=== PATIENT | female | born 1975 | race Caucasian/White ===

== ENCOUNTER 2018-03-02 01:34 | Outpatient (CLI) | payer OTHER, SELFPAY ==
--- NOTE | 2018-03-02 11:39 | DI.US_ITS ---
SYMPTOM/DIAGNOSIS: RT KNEE PAIN, POSTERIOR SWELLING, SYNOVIAL CYST OF POPLITEAL SPACE, JOHNSON RIGHT KNEE ULTRASOUND: Sonographic evaluation of the posterior knee was performed. There is a 3.7 by 1.1 by 2.3 cm. fluid collection in the posterior knee, most consistent with a popliteal cyst. No abnormal blood flow or solid component is seen. IMPRESSION: 3.7 cm. right Johnson's cyst.
== END 2018-03-02 01:54 ==
PROVIDERS: PCP Emergency Medicine; Visit Provider Student in an Organized Health Care Education/Training Program
DX: M25.561 Pain in right knee (principal); M71.21 Synovial cyst of popliteal space [Baker], right knee
CPT/HCPCS: 76881

== ENCOUNTER 2018-05-10 01:19 | Outpatient (CLI) | payer OTHER, SELFPAY ==
--- NOTE | 2018-05-10 09:38 | DI.RAD_ITS ---
SYMPTOM/DIAGNOSIS: TENDINITIS LT ROTATOR CUFF M75.82 LEFT SHOULDER INJECTION: Fluoroscopy Time: 6 sec Fluoroscopy was utilized by Dr. Langford during the performance of a left shoulder injection. Please refer to the procedure report for complete details.
[2018-05-10] MEDS: Omnipaque 300 MG/ML 10 ML BTL IJ (09:51)
[2018-05-10] MEDS: methylPREDNISolone ACETATE 80 MG/ML VIAL IM (09:51)
[2018-05-10] MEDS: Bupivacaine 0.5% Pres-Free 30 ML VIAL IJ (09:52)
--- NOTE | 2018-05-10 11:32 | OPPNE_ITS ---
Date of service: 05/10/18 Time of Service: 11:30 Procedure Note Date of procedure: 05/10/18 Procedure: Left Shoulder Injection Surgeon/Proceduralist/Physician: Kirk Langford Procedure Diagnosis: Left partial rotator cuff tear Procedure Indications: Na has had persistent pain of the LEFT shoulder. Noninvasive measures have been tried and previous intra- articular injection was successful. An injection under fluoroscopy was recommended. I had discussed the risks of the procedure and the patient elected to proceed. Procedure Description: Na was greeted in the flouroscopy room. The correct side was identified and the consent was reviewed with the patient and signed. The patient was then placed in the supine position on the fluoroscopy table. The LEFT shoulder was then prepped with Chloraprep. The anterior injection starting point was identiifed by bony landmarks and fluoroscopy. The skin and soft tissue in the tract of the injection was anesthetized with 1% Lidocaine. A spinal needle was then inserted deep into the shoulder joint at the level of the recess between the glenoid and superior humeral head. A small amount of Omnipaque solution was injected to confirm intraarticular placement. Once confirmed, the shoulder was injected with 4cc of 0.5% Bupivicaine and 80mg of Depo-Medrol. A bandaid was placed on the injection site. The patient tolerated the procedure well and noted improvement in pre- injection pain.
== END 2018-05-10 01:39 ==
PROVIDERS: PCP Emergency Medicine; Visit Provider Student in an Organized Health Care Education/Training Program
DX: M25.512 Pain in left shoulder (principal); M75.82 Other shoulder lesions, left shoulder
CPT/HCPCS: 20610; 77002; J1040

== ENCOUNTER 2018-07-09 02:45 | Outpatient (CLI) | payer OTHER, SELFPAY ==
[2018-07-09 07:44] LABS: Abs Immature Grans 0.01 k/cumm (0.0-0.09); Absolute Basophil Count 0.02 k/cumm (0.0-0.2); Absolute Eosinophil Count 0.18 k/cumm (0.0-0.7); Absolute Lymphocyte Count 1.29 k/cumm (1.2-3.4); Absolute Monocyte Count 0.28 k/cumm (0.11-0.7); Absolute Neutrophil Count 2.79 k/cumm (1.2-6.7); Basophils % 0.4; Eosinophils % 3.9; HCT 40.3 % (36.0-46.0); HGB 13.7 g/dL (12.0-15.5); Immature Grans % 0.2; Lymphocytes % 28.2; Mean Corpuscular Hemoglobin 31.7 pg (27.0-33.0); Mean Corpuscular Volume 93.3 fL (80-95); Monocytes % 6.1; Neutrophils % 61.2; Platelet Count 185 x1000/uL (130-400); RBC 4.32 m/cumm (4.00-5.20); RBC Distribution Width 12.9 % (11.7-14.6); White Blood Cell Count 4.57 k/cumm (4.4-10.8)
[2018-07-09 07:58] LABS: ALT 20 U/L (12-78); AST 16 U/L (15-37); Albumin 3.7 g/dL (3.4-5.0); Alkaline Phosphatase 81 U/L (46-116); Anion Gap 8.5 mmol/L (3-11); BUN 17 mg/dL (7-18); Bilirubin, Total 0.4 mg/dL (0.2-1.0); CO2 27.5 mmol/L (21.0-32.0); CREATININE 1.15 mg/dL (0.55-1.02); Calcium 9.1 mg/dL (8.5-10.1); Chloride 104 mmol/L (98-107); Estimated GFR 51.26 (mL/min/1.73m2); Glucose 95 mg/dL (70-100); Potassium 3.7 mmol/L (3.5-5.1); Sodium 140 mmol/L (136-145); Total Protein 7.4 g/dL (6.4-8.2)
[2018-07-09 09:49] LABS: Hemoglobin A1C 6.3 % (4.5-6.2)
[2018-07-11 13:55] LABS: TB Interpretation Negative (NEGAT)
== END 2018-07-09 03:05 ==
PROVIDERS: Psychiatry & Neurology Neurology; PCP Emergency Medicine; Visit Provider Emergency Medicine
DX: G35 Multiple sclerosis (principal); I10 Essential (primary) hypertension; E11.9 Type 2 diabetes mellitus without complications
CPT/HCPCS: 36415; 80048; 80053; 85027; 83036; 85025; 86480

== ENCOUNTER 2018-09-14 07:04 | Observation (INO) | payer OTHER, SELFPAY ==
[2018-09-14] VITALS (11 sets, daily range): BP systolic 93–126; BP diastolic 46–67; PULSE 72–94; RESP 14–19; TEMP 36.5–36.8; O2SAT 96–100
--- NOTE | 2018-09-14 07:17 | W.ED.GENAD ---
Discharge Plan Disposition Patient Disposition: [facility] INPATIENT Condition: Stable Discharge Details Chief Complaint: Abd Prob Clinical Impression: Acute appendicitis Admit Date/Time: 09/14/18 09:38 Admit Provider: Frederic Goel Attending Provider: Frederic Goel Primary Care Provider: Jasson Avila ED Provider: Ashish Branch Hospital Course Hospital Course: 43 y/o female admitted through the ED this am with acute appendicitis. She underwent an uneventful laparoscopic appendectomy and was found to have a gangrenous appendix but no evidence of ruptured appendix or abscess. Patient did well post-operatively. She is afebrile and tolerating a liquid diet. She has ambulated and voided. Pain is minimal per patient. She takes acetaminophen at home and declines need for pain med Rx. Discharge Instructions Instructions: Laparoscopic Appendectomy (DC) Additional Instructions: May climb stairs. May shower in am. No lifting > 20 pounds x 2 weeks. Call office/hospital for questions/concerns. Forms: Nursing Discharge Form Referrals: Rica Montalvo MD [ [facility] STAFF PHYSICIAN] - (Follow-up in office in 2 weeks - s/p lap appendectomy.) Discharge Data Discharge Date/Time-TO BE ENTERED AT DEPARTURE: 09/14/18 10:10 Medical Decision Making <Earnest Olson MD - Last Filed: 09/14/18 19:57> Patient presenting with worsening right lower quadrant abdominal pain for 36 hours. She is exquisitely tender in the right lower quadrant. She has a Rovsing sign. She is not able to walk upright. test is negative. Urinalysis negative. IV established and laboratory studies ordered. Fluids, morphine, Zofran ordered. CT scan of the abdomen pelvis ordered. Patient signed out to oncoming physician Dr. Branch. <Ashish Branch MD - Last Filed: 09/14/18 08:55> Pt's CT confirms acute appendicitis per Dr. Frankel. Pt remains stable, consulted Dr. Goel who will admit the patient and asked abx be ordered. HPI <Earnest Olson MD - Last Filed: 09/14/18 19:57> General Mode of arrival: ambulatory. Date/Time Provider Initiated Documentation: 09/14/18 07:14. Limitations to Documentation: no limitations. Information obtained by: patient. HPI Narrative: Patient presents to ED with right lower quadrant abdominal pain that started 36 hours ago and has got progressively worse. She has pain with any type of movement. She cannot walk upright. She has not had fever that she is aware of. She started out with nausea last week. She saw her primary care who diagnosed her with an ear infection. She was started on Augmentin which she has not completely finished because it seemed to make her nausea worse. She has been switched to Keflex but has not yet filled that. She did eat last night. She has not ate this morning. She has not had vomiting or diarrhea. She has no URI symptoms or ear pain. Related Data Home Medications Medication Instructions Recorded Confirmed tizanidine 2 mg PO HS #1 02/04/15 09/14/18 fludrocortisone 0.1 mg PO DAILY #90 tab 12/08/15 09/14/18 acetaminophen [Acetaminophen Extra 1,000 mg PO TID PRN PRN #180 tab 02/09/16 09/14/18 Strength] cholecalciferol (vitamin D3) 5,000 unit PO DAILY 02/09/16 09/14/18 glatiramer [Copaxone] 40 mg IM/SC . 3 X A WEEK 02/09/16 09/14/18 gabapentin 100 mg PO daily prn #60 cap 04/14/17 09/14/18 OneTouch Ultra Test #900 strip 04/25/17 09/14/18 Glucagon Emergency Kit (human) 1 mg IJ PRN PRN #2 kit 09/18/17 09/14/18 scopolamine base [Transderm-Scop] 1 patch TRANSDERMAL ONCE #2 patch 11/10/17 09/14/18 ibuprofen 600 mg PO Q6H PRN #60 tab-cap 11/21/17 09/14/18 fluconazole [Diflucan] 150 mg PO ONCE #1 tab-cap 12/27/17 09/14/18 gabapentin 300 - 600 mg PO BID #270 tab-cap 01/19/18 09/14/18 blood sugar diagnostic strips #900 each 03/13/18 09/14/18 amlodipine 2.5 mg tablet 5 mg PO QAM #90 tab 05/18/18 09/14/18 baclofen 10 mg tablet 10 mg PO BID PRN #60 tab 05/18/18 09/14/18 lisinopril 40 mg tablet 40 mg PO HS #90 tab 05/18/18 09/14/18 insulin lispro (U- 100) 100 14.1 unit SUBCUT DIRECTED #10 ml 05/23/18 09/14/18 unit/mL subcutaneous pen amoxicillin 500 mg-potassium 1 tab PO BID #14 tab 09/10/18 09/14/18 clavulanate 125 mg tablet ondansetron 4 mg disintegrating 4 mg PO TID PRN #20 tab.rapdis 09/10/18 09/14/18 tablet cephalexin 500 mg tablet 500 mg PO BID #20 tab 09/13/18 09/14/18 prochlorperazine maleate 5 mg 5 mg PO BID-TID PRN #30 tab 09/13/18 09/14/18 tablet Previous Rx's Medication Instructions Recorded acetaminophen [Acetaminophen Extra 1,000 mg PO TID PRN PRN #180 tab 02/09/16 Strength] gabapentin 100 mg PO daily prn #60 cap 04/14/17 OneTouch Ultra Test #900 strip 04/25/17 scopolamine base [Transderm-Scop] 1 patch TRANSDERMAL ONCE #2 patch 11/10/17 ibuprofen 600 mg PO Q6H PRN #60 tab-cap 11/21/17 fluconazole [Diflucan] 150 mg PO ONCE #1 tab-cap 12/27/17 gabapentin 300 - 600 mg PO BID #270 tab-cap 01/19/18 blood sugar diagnostic strips #900 each 03/13/18 amlodipine 2.5 mg tablet 5 mg PO QAM #90 tab 05/18/18 baclofen 10 mg tablet 10 mg PO BID PRN #60 tab 05/18/18 lisinopril 40 mg tablet 40 mg PO HS #90 tab 05/18/18 insulin lispro (U- 100) 100 14.1 unit SUBCUT DIRECTED #10 ml 05/23/18 unit/mL subcutaneous pen amoxicillin 500 mg-potassium 1 tab PO BID #14 tab 09/10/18 clavulanate 125 mg tablet ondansetron 4 mg disintegrating 4 mg PO TID PRN #20 tab.rapdis 09/10/18 tablet cephalexin 500 mg tablet 500 mg PO BID #20 tab 09/13/18 prochlorperazine maleate 5 mg 5 mg PO BID-TID PRN #30 tab 09/13/18 tablet Allergies Allergy/AdvReac Type Severity Reaction Status Date / Time sulfur dioxide Allergy Intermediate Skin Rash Unverified 09/14/18 07:23 Review of Systems <Earnest Olson MD - Last Filed: 09/14/18 19:57> Review of Systems 03/11 Review of Systems completed and is negative except as stated above in HPI (Systems reviewed: Const, Eyes, ENT, Resp, CV, GI, , MSK, Skin, Neuro) PFSH <Earnest Olson MD - Last Filed: 09/14/18 19:57> Medical History MS (multiple sclerosis) (Chronic) Peripheral neuralgia (Chronic) Essential hypertension (Chronic) Chronic kidney disease, unspecified (Chronic) DM type 1 (diabetes mellitus, type 1) (Chronic) Surgical History Extraction of cataract (Inactive) Open Carpal Tunnel release (Inactive) Trigger Finger release (Inactive) ULNAR RETRACTMENT (Inactive) Family History Mother CMML (chronic myelomonocytic leukemia) Father Essential hypertension Sister No problems noted. Brother No problems noted. Brother No problems noted. 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 Normal vitals. Const: WDWN female in NAD. HEENT: NC/AT. Normal facial exam. TMs normal bilaterally. Eyes: Normal conjunctiva and sclera. Neck: Supple. Trachea midline. Lungs: Normal respiratory effort. Lungs are clear. Cor: RRR without murmur/gallop. Good radial pulses. GI: Soft and non-distended. Tender in RLQ with guarding. Positive Rosving. Neuro: A+O x 3. CN grossly in tact. Good strength and no focal deficit. Ext: No C/C/E. No deformity or tenderness. Skin: Warm and dry without rash. Course <Earnest Olson MD - Last Filed: 09/14/18 19:57> Lab/Test Results Lab/Test Results: POC- Test(urine) Negative Sign Out <Earnest Olson MD - Last Filed: 09/14/18 19:57> Sign Out Data: Sign Out Comment: RLQ pain/tenderness with labs and CT pending. Last updated by Earnest Olson MD at 09/14/18 07:49
[2018-09-14 07:19] LABS: Bilirubin Negative (Negative); Blood Trace-intact (Negative); Clarity Clear; Glucose 250 mg/dL (Negative); Ketones 15 mg/dL (Negative); Leukocyte Esterase Trace (Negative); Nitrite Negative (Negative); Specific Gravity 1.015 (1.005-1.025)
--- NOTE | 2018-09-14 07:20 | ED.GENADUL_ITS ---
Discharge Plan Disposition Patient Disposition: [facility] INPATIENT Condition: Stable Discharge Details Chief Complaint: Abd Prob Clinical Impression: Acute appendicitis Admit Date/Time: 09/14/18 09:38 Admit Provider: Frederic Goel Attending Provider: Frederic Goel Primary Care Provider: Jasson Avila ED Provider: Ashish Branch Hospital Course Hospital Course: 43 y/o female admitted through the ED this am with acute appendicitis. She underwent an uneventful laparoscopic appendectomy and was found to have a gangrenous appendix but no evidence of ruptured appendix or abscess. Patient did well post-operatively. She is afebrile and tolerating a liquid diet. She has ambulated and voided. Pain is minimal per patient. She takes acetaminophen at home and declines need for pain med Rx. Discharge Instructions Instructions: Laparoscopic Appendectomy (DC) Additional Instructions: May climb stairs. May shower in am. No lifting > 20 pounds x 2 weeks. Call office/hospital for questions/concerns. Forms: Nursing Discharge Form Referrals: Rica Montalvo MD [ [facility] STAFF PHYSICIAN] - (Follow-up in office in 2 weeks - s/p lap appendectomy.) Discharge Data Discharge Date/Time-TO BE ENTERED AT DEPARTURE: 09/14/18 10:10 Medical Decision Making <Earnest Olson MD - Last Filed: 09/14/18 19:57> Patient presenting with worsening right lower quadrant abdominal pain for 36 hours. She is exquisitely tender in the right lower quadrant. She has a Rovsing sign. She is not able to walk upright. test is negative. Urinalysis negative. IV established and laboratory studies ordered. Fluids, morphine, Zofran ordered. CT scan of the abdomen pelvis ordered. Patient signed out to oncoming physician Dr. Branch. <Ashish Branch MD - Last Filed: 09/14/18 08:55> Pt's CT confirms acute appendicitis per Dr. Frankel. Pt remains stable, consulted Dr. Goel who will admit the patient and asked abx be ordered. HPI <Earnest Olson MD - Last Filed: 09/14/18 19:57> General Mode of arrival: ambulatory . Date/Time Provider Initiated Documentation: 09/14/18 07:14 . Limitations to Documentation: no limitations . Information obtained by: patient . HPI Narrative: Patient presents to ED with right lower quadrant abdominal pain that started 36 hours ago and has got progressively worse. She has pain with any type of movement. She cannot walk upright. She has not had fever that she is aware of. She started out with nausea last week. She saw her primary care who diagnosed her with an ear infection. She was started on Augmentin which she has not completely finished because it seemed to make her nausea worse. She has been switched to Keflex but has not yet filled that. She did eat last night. She has not ate this morning. She has not had vomiting or diarrhea. She has no URI symptoms or ear pain. Related Data Home Medications Medication Instructions Recorded Confirmed tizanidine 2 mg PO HS #1 02/04/15 09/14/18 fludrocortisone 0.1 mg PO DAILY #90 tab 12/08/15 09/14/18 acetaminophen [Acetaminophen Extra 1,000 mg PO TID PRN PRN #180 tab 02/09/16 09/14/18 Strength] cholecalciferol (vitamin D3) 5,000 unit PO DAILY 02/09/16 09/14/18 glatiramer [Copaxone] 40 mg IM/SC . 3 X A WEEK 02/09/16 09/14/18 gabapentin 100 mg PO daily prn #60 cap 04/14/17 09/14/18 OneTouch Ultra Test #900 strip 04/25/17 09/14/18 Glucagon Emergency Kit (human) 1 mg IJ PRN PRN #2 kit 09/18/17 09/14/18 scopolamine base [Transderm-Scop] 1 patch TRANSDERMAL ONCE #2 patch 11/10/17 09/14/18 ibuprofen 600 mg PO Q6H PRN #60 tab-cap 11/21/17 09/14/18 fluconazole [Diflucan] 150 mg PO ONCE #1 tab-cap 12/27/17 09/14/18 gabapentin 300 - 600 mg PO BID #270 tab-cap 01/19/18 09/14/18 blood sugar diagnostic strips #900 each 03/13/18 09/14/18 amlodipine 2.5 mg tablet 5 mg PO QAM #90 tab 05/18/18 09/14/18 baclofen 10 mg tablet 10 mg PO BID PRN #60 tab 05/18/18 09/14/18 lisinopril 40 mg tablet 40 mg PO HS #90 tab 05/18/18 09/14/18 insulin lispro (U- 100) 100 14.1 unit SUBCUT DIRECTED #10 ml 05/23/18 09/14/18 unit/mL subcutaneous pen amoxicillin 500 mg-potassium 1 tab PO BID #14 tab 09/10/18 09/14/18 clavulanate 125 mg tablet ondansetron 4 mg disintegrating 4 mg PO TID PRN #20 tab.rapdis 09/10/18 09/14/18 tablet cephalexin 500 mg tablet 500 mg PO BID #20 tab 09/13/18 09/14/18 prochlorperazine maleate 5 mg 5 mg PO BID-TID PRN #30 tab 09/13/18 09/14/18 tablet Previous Rx's Medication Instructions Recorded acetaminophen [Acetaminophen Extra 1,000 mg PO TID PRN PRN #180 tab 02/09/16 Strength] gabapentin 100 mg PO daily prn #60 cap 04/14/17 OneTouch Ultra Test #900 strip 04/25/17 scopolamine base [Transderm-Scop] 1 patch TRANSDERMAL ONCE #2 patch 11/10/17 ibuprofen 600 mg PO Q6H PRN #60 tab-cap 11/21/17 fluconazole [Diflucan] 150 mg PO ONCE #1 tab-cap 12/27/17 gabapentin 300 - 600 mg PO BID #270 tab-cap 01/19/18 blood sugar diagnostic strips #900 each 03/13/18 amlodipine 2.5 mg tablet 5 mg PO QAM #90 tab 05/18/18 baclofen 10 mg tablet 10 mg PO BID PRN #60 tab 05/18/18 lisinopril 40 mg tablet 40 mg PO HS #90 tab 05/18/18 insulin lispro (U- 100) 100 14.1 unit SUBCUT DIRECTED #10 ml 05/23/18 unit/mL subcutaneous pen amoxicillin 500 mg-potassium 1 tab PO BID #14 tab 09/10/18 clavulanate 125 mg tablet ondansetron 4 mg disintegrating 4 mg PO TID PRN #20 tab.rapdis 09/10/18 tablet cephalexin 500 mg tablet 500 mg PO BID #20 tab 09/13/18 prochlorperazine maleate 5 mg 5 mg PO BID-TID PRN #30 tab 09/13/18 tablet Allergies Allergy/AdvReac Type Severity Reaction Status Date / Time sulfur dioxide Allergy Intermediate Skin Rash Unverified 09/14/18 07:23 Review of Systems <Earnest Olson MD - Last Filed: 09/14/18 19:57> Review of Systems 03/11 Review of Systems completed and is negative except as stated above in HPI (Systems reviewed: Const, Eyes, ENT, Resp, CV, GI, , MSK, Skin, Neuro) PFSH <Earnest Olson MD - Last Filed: 09/14/18 19:57> Medical History MS (multiple sclerosis) (Chronic) Peripheral neuralgia (Chronic) Essential hypertension (Chronic) Chronic kidney disease, unspecified (Chronic) DM type 1 (diabetes mellitus, type 1) (Chronic) Surgical History Extraction of cataract (Inactive) Open Carpal Tunnel release (Inactive) Trigger Finger release (Inactive) ULNAR RETRACTMENT (Inactive) Family History Mother CMML (chronic myelomonocytic leukemia) Father Essential hypertension Sister No problems noted. Brother No problems noted. Brother No problems noted. 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 Normal vitals. Const: WDWN female in NAD. HEENT: NC/AT. Normal facial exam. TMs normal bilaterally. Eyes: Normal conjunctiva and sclera. Neck: Supple. Trachea midline. Lungs: Normal respiratory effort. Lungs are clear. Cor: RRR without murmur/gallop. Good radial pulses. GI: Soft and non-distended. Tender in RLQ with guarding. Positive Rosving. Neuro: A+O x 3. CN grossly in tact. Good strength and no focal deficit. Ext: No C/C/E. No deformity or tenderness. Skin: Warm and dry without rash. Course <Earnest Olson MD - Last Filed: 09/14/18 19:57> Lab/Test Results Lab/Test Results: POC- Test(urine) Negative Sign Out <Earnest Olson MD - Last Filed: 09/14/18 19:57> Sign Out Data: Sign Out Comment: RLQ pain/tenderness with labs and CT pending. Last updated by Earnest Olson MD at 09/14/18 07:49
[2018-09-14 07:27] LABS: Epithelial Cells Many HPF (Negative)
[2018-09-14 07:28] LABS: Bacteria Few HPF (Negative); C & S Indicated? No/Sq. Contamination; Casts Negative LPF (Negative); Crystals Negative HPF (Negative); Mucus Negative (Negative)
[2018-09-14] MEDS: Lactated Ringers 1,000 ML 125 ML IV ×3 (07:59→14:08)
[2018-09-14] MEDS: Ondansetron 4 MG/2 ML VIAL IVP (08:00)
[2018-09-14 08:08] LABS: Abs Immature Grans 0.03 k/cumm (0.0-0.09); Absolute Basophil Count 0.01 k/cumm (0.0-0.2); Absolute Monocyte Count 0.97 k/cumm (0.11-0.7); Absolute Neutrophil Count 10.72 k/cumm (1.2-6.7); Basophils % 0.1; HCT 36.9 % (36.0-46.0); HGB 12.7 g/dL (12.0-15.5); Immature Grans % 0.2; Lymphocytes % 7.1; Mean Corp. HGB Concentration 34.4 g/dL (32.0-36.0); Mean Corpuscular Hemoglobin 31.8 pg (27.0-33.0); Mean Corpuscular Volume 92.5 fL (80-95); Monocytes % 7.7; Neutrophils % 84.9; Platelet Count 157 x1000/uL (130-400); RBC 3.99 m/cumm (4.00-5.20); RBC Distribution Width 12.5 % (11.7-14.6); White Blood Cell Count 12.63 k/cumm (4.4-10.8)
--- NOTE | 2018-09-14 08:16 | DI.CT_ITS ---
SYMPTOM/DIAGNOSIS: RLQ PAIN, TENDERNESS ABDOMEN AND PELVIC CT: CT examination of the abdomen and pelvis was performed with a bolus infusion of 100 cc's of Omnipaque 350. Images obtained through the lung bases are unremarkable. Liver, spleen and pancreas appear normal. Gallbladder and bile ducts are CT normal. Adrenals and kidneys appear unremarkable. No urinary tract calcification or obstruction. No abdominal wall hernia is seen. No abdominal or pelvic adenopathy is seen. Abdominal aorta is of normal diameter and no major vascular abnormality is seen. The appendix is dilated at about 13 mm. greatest diameter with an apparent proximal appendicolith as well as a couple of other tiny more distally located appendicoliths. There is marked fat edema around the appendix. No abscess identified at this time. No evidence of perforation. Free fluid in the pelvis is nonspecific and may represent peritoneal irritation versus ruptured ovarian cyst, a couple of collapse ovarian cysts are noted in the pelvis. CONCLUSION: Findings highly suggestive of acute appendicitis. No evidence of perforation or abscess formation.
[2018-09-14 08:18] LABS: ALT 15 U/L (12-78); AST 12 U/L (15-37); Albumin 3.2 g/dL (3.4-5.0); Alkaline Phosphatase 61 U/L (46-116); Anion Gap 8.9 mmol/L (3-11); BUN 13 mg/dL (7-18); CO2 27.1 mmol/L (21.0-32.0); Chloride 99 mmol/L (98-107); Estimated GFR 48.58 (mL/min/1.73m2); Glucose 186 mg/dL (70-100); Lipase 33 U/L (73-393); Potassium 3.3 mmol/L (3.5-5.1); Sodium 135 mmol/L (136-145); Total Protein 6.5 g/dL (6.4-8.2)
[2018-09-14] MEDS: Omnipaque 350 MG/ML 100 ML BTL IJ (08:22)
[2018-09-14 08:23] LABS: Calcium 8.7 mg/dL (8.5-10.1)
--- NOTE | 2018-09-14 09:46 | W.PM.HP.N ---
Date of service: 09/14/18 Time of Service: 09:47 Assessment and Plan (1) Acute appendicitis: Current visit: Yes Status: Acute 43 y/o female with findings on history/exam/imaging consistent with acute appendicitis. CT findings reviewed. Recommended proceeding with laparoscopic appendectomy this am.. Operative procedure including risks, benefits, and alternatives discussed with patient and her fiance. These include but are not limited to risks with general anesthesia, bleeding, infection, scarring, conversion to open, drain placement, boo placement, injury to adjacent structures and organs, and possible additional procedures. All questions answered. Patient and fiance appeared to understand and agree with the discussion as outlined above. They wish to proceed with surgery. Will have patient remove/relocate her insulin pump from her abdominal wall for surgery. Patient has received Invanz for perioperative antibiotic coverage. See orders. To OR this am.. History of Present Illness Chief Complaint: RLQ abdominal pain Narrative: 43 y/o female seen in the ED at [facility] with her fiance. Patient notes that 4 days ago she had some nausea and was seen at her PCP's office and diagnosed with an ear infection. She was started on antibiotics. The night before last, she started to have abdominal pain localized to the RLQ which persisted and worsened over the day yesterday. She denies fevers, chills, or vomiting. She is not nauseated at this time. Her last BM was yesterday. She denies diarrhea, melena, or hematochezia. CT abd/pelvis demonstrated a dilated appendix with appendicoliths and periappendiceal inflammation with a small amount of free fluid in the pelvis but no abscess or signs of perforation. WBC ~ 12k. Patient is diabetic and uses an insulin pump. She notes that it can be repositioned from her abdomen to her arms or thighs. Review of Systems Review of Systems All systems reviewed & are unremarkable except as noted in HPI and below Constitutional Denies chills and Denies fever(s) Cardiovascular Denies chest pain, Denies rapid heart rate and Denies dyspnea Respiratory Denies cough and Denies dyspnea Gastrointestinal Reports abdominal pain, Denies melena, Denies diarrhea, Reports nausea and Denies vomiting [facility] Medical History MS (multiple sclerosis) (Chronic) Peripheral neuralgia (Chronic) Essential hypertension (Chronic) Chronic kidney disease, unspecified (Chronic) DM type 1 (diabetes mellitus, type 1) (Chronic) Surgical History Extraction of cataract (Inactive) Open Carpal Tunnel release (Inactive) Trigger Finger release (Inactive) ULNAR RETRACTMENT (Inactive) Family History Mother CMML (chronic myelomonocytic leukemia) Father Essential hypertension Sister No problems noted. Brother No problems noted. Brother No problems noted. 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 Pets and animals: Yes Pets and animals: cat(s), dog(s) and farm animals What type of physical activity do you participate in: none Frequency: does not exercise Chioma/Mormonism: Confucianism Special chioma needs: No Do you feel safe at home: Yes Do you feel safe in your relationship?: Yes Meds Home Medications Medication Instructions Recorded Confirmed Type tizanidine 2 mg PO HS #1 02/04/15 09/14/18 History fludrocortisone 0.1 mg PO DAILY #90 tab 12/08/15 09/14/18 History acetaminophen [Acetaminophen Extra 1,000 mg PO TID PRN PRN #180 tab 02/09/16 09/14/18 Rx Strength] cholecalciferol (vitamin D3) 5,000 unit PO DAILY 02/09/16 09/14/18 History glatiramer [Copaxone] 40 mg IM/SC . 3 X A WEEK 02/09/16 09/14/18 History gabapentin 100 mg PO daily prn #60 cap 04/14/17 09/14/18 Rx OneTouch Ultra Test #900 strip 04/25/17 09/14/18 Rx Glucagon Emergency Kit (human) 1 mg IJ PRN PRN #2 kit 09/18/17 09/14/18 History scopolamine base [Transderm-Scop] 1 patch TRANSDERMAL ONCE #2 patch 11/10/17 09/14/18 Rx ibuprofen 600 mg PO Q6H PRN #60 tab-cap 11/21/17 09/14/18 Rx fluconazole [Diflucan] 150 mg PO ONCE #1 tab-cap 12/27/17 09/14/18 Rx gabapentin 300 - 600 mg PO BID #270 tab-cap 01/19/18 09/14/18 Rx blood sugar diagnostic strips #900 each 03/13/18 09/14/18 Rx amlodipine 2.5 mg tablet 5 mg PO QAM #90 tab 05/18/18 09/14/18 Rx baclofen 10 mg tablet 10 mg PO BID PRN #60 tab 05/18/18 09/14/18 Rx lisinopril 40 mg tablet 40 mg PO HS #90 tab 05/18/18 09/14/18 Rx insulin lispro (U- 100) 100 14.1 unit SUBCUT DIRECTED #10 ml 05/23/18 09/14/18 Rx unit/mL subcutaneous pen amoxicillin 500 mg-potassium 1 tab PO BID #14 tab 09/10/18 09/14/18 Rx clavulanate 125 mg tablet ondansetron 4 mg disintegrating 4 mg PO TID PRN #20 tab.rapdis 09/10/18 09/14/18 Rx tablet cephalexin 500 mg tablet 500 mg PO BID #20 tab 09/13/18 09/14/18 Rx prochlorperazine maleate 5 mg 5 mg PO BID-TID PRN #30 tab 09/13/18 09/14/18 Rx tablet Allergies Allergy/AdvReac Type Severity Reaction Status Date / Time sulfur dioxide Allergy Intermediate Skin Rash Unverified 09/14/18 07:23 Exam Const General: cooperative and no acute distress Orientation: alert and oriented x3 [facility] Head: normocephalic and atraumatic Eyes Sclera: sclerae normal Neck Neck: no lymphadenopathy, trachea midline, supple and no JVD Resp Effort & Inspection: normal respiratory effort and able to speak in complete sentences Cardio Jugular venous pressure: no JVD Rate: regular rate Rhythm: regular rhythm GI Inspection: non-distended and other (insulin pump RLQ abdominal wall) Palpation: soft, not firm, no guarding, not rigid and tender in the RLQ (localized moderate tenderness in RLQ) Skin General skin exam: no jaundice Neuro General: alert and oriented x3 Cognition: normal cognition Speech: speech normal Results Imaging Abdomen CT scan report/results: report reviewed and image reviewed CT scan - pelvis: report reviewed and image reviewed Imaging Studies: Patient Name: REINALDO WHITTEN #: [id number]: ER Ordering Provider: Earnest Olson M.D. : [facility] ER Primary Care Provider: Jasson Avila DODate of Exam: 09/14/18Sex: F : 1975Age: 43 Exam(s) a CT:CT abdomen & pelvis w SYMPTOM/DIAGNOSIS: RLQ PAIN, TENDERNESS ABDOMEN AND PELVIC CT: CT examination of the abdomen and pelvis was performed with a bolus infusion of 100 cc's of Omnipaque 350. Images obtained through the lung bases are unremarkable. Liver, spleen and pancreas appear normal. Gallbladder and bile ducts are CT normal. Adrenals and kidneys appear unremarkable. No urinary tract calcification or obstruction. No abdominal wall hernia is seen. No abdominal or pelvic adenopathy is seen. Abdominal aorta is of normal diameter and no major vascular abnormality is seen. The appendix is dilated at about 13 mm. greatest diameter with an apparent proximal appendicolith as well as a couple of other tiny more distally located appendicoliths. There is marked fat edema around the appendix. No abscess identified at this time. No evidence of perforation. Free fluid in the pelvis is nonspecific and may represent peritoneal irritation versus ruptured ovarian cyst, a couple of collapse ovarian cysts are noted in the pelvis. CONCLUSION: Findings highly suggestive of acute appendicitis. No evidence of perforation or abscess formation. [id number]: Total DLP = 0.00 mGy-cm Ordered By: Earnest Olson M.D. CC: Dictated By: Kanu Frankel M.D. 09/14/18 0824 Transcribed By: Reinaldo Hdez 09/14/18 0911 This is privileged, confidential information intended only for the provider named. Any use or distribution by any person other than this provider is strictly prohibited. If you receive this report in error, please notify us immediately at [phone] and return the original report to us at the address above. Thank-you. Labs : 09/14/18 07:55 09/14/18 07:55 Laboratory Results - last 24 hr 09/14/18 09/14/18 09/14/18 07:13 07:55 07:55 WBC 12.63 H RBC 3.99 L Hgb 12.7 Hct 36.9 MCV 92.5 MCH 31.8 MCHC 34.4 RDW 12.5 Plt Count 157 MPV 11.0 Immature Gran % 0.2 Neutrophils % 84.9 Lymphocytes % 7.1 Monocytes % 7.7 Eosinophils % 0.0 Basophils % 0.1 Absolute Neutrophils 10.72 H Absolute Lymphocytes 0.90 L Absolute Monocytes 0.97 H Absolute Eosinophils 0.00 Absolute Basophils 0.01 Sodium 135 L Potassium 3.3 L Chloride 99 Carbon Dioxide 27.1 Anion Gap 8.9 BUN 13 Creatinine 1.20 H Estimated GFR/1.73 m2 48.58 Glucose 186 H Calcium 8.7 Total Bilirubin 1.0 AST 12 L ALT 15 Alkaline Phosphatase 61 Total Protein 6.5 Albumin 3.2 L Lipase 33 L Urine Color Yellow Urine Clarity Clear Urine pH 6.0 Ur Specific [place] 1.015 Urine Protein 100 H Urine Ketones 15 H Urine Blood Trace-intact H Urine Nitrite Negative Urine Bilirubin Negative Urine Urobilinogen 1.0 H Ur Leukocyte Esterase Trace H Urine RBC 3-5 H Urine WBC 5-10 Ur Epithelial Cells Many Urine Crystals Negative Urine Bacteria Few Urine Casts Negative Urine Mucus Negative Ur Culture Indicated? No/sq. contamination Urine Glucose 250 H Last Vital Signs Temp 36.8 C 09/14/18 09:32 Pulse 89 09/14/18 09:32 Resp 16 09/14/18 09:32 BP 122/67 09/14/18 09:32 Pulse Ox 98 09/14/18 09:32
--- NOTE | 2018-09-14 10:00 | HPE_ITS ---
Date of service: 09/14/18 Time of Service: 09:47 Assessment and Plan (1) Acute appendicitis: Current visit: Yes Status: Acute 43 y/o female with findings on history/exam/imaging consistent with acute appendicitis. CT findings reviewed. Recommended proceeding with laparoscopic appendectomy this am.. Operative procedure including risks, benefits, and alternatives discussed with patient and her fiance. These include but are not limited to risks with general anesthesia, bleeding, infection, scarring, con version to open, drain placement, boo placement, injury to adjacent structures and organs, and possible additional procedures. All questions answered. Patient and fiance appeared to understand and agree with the discussion as outlined above. They wish to proceed with surgery. Will have patient remove/relocate her insulin pump from her abdominal wall for surgery. Patient has received Invanz for perioperative antibiotic coverage. See orders. To OR this am.. History of Present Illness Chief Complaint: RLQ abdominal pain Narrative: 43 y/o female seen in the ED at [facility] with her fiance. Patient notes that 4 days ago she had some nausea and was seen at her PCP's office and diagnosed with an ear infection. She was started on antibiotics. The night before last, she started to have abdominal pain localized to the RLQ which persisted and worsened over the day yesterday. She denies fevers, chills, or vomiting. She is not nauseated at this time. Her last BM was yesterday. She denies diarrhea, melena, or hematochezia. CT abd/pelvis demonstrated a dilated appendix with appendicoliths and periappendiceal inflammation with a small amount of free fluid in the pelvis but no abscess or signs of perforation. WBC ~ 12k. Patient is diabetic and uses an insulin pump. She notes that it can be repositioned from her abdomen to her arms or thighs. Review of Systems Review of Systems All systems reviewed & are unremarkable except as noted in HPI and below Constitutional Denies chills and Denies fever(s) Cardiovascular Denies chest pain, Denies rapid heart rate and Denies dyspnea Respiratory Denies cough and Denies dyspnea Gastrointestinal Reports abdominal pain, Denies melena, Denies diarrhea, Reports nausea and Denies vomiting [facility] Medical History MS (multiple sclerosis) (Chronic) Peripheral neuralgia (Chronic) Essential hypertension (Chronic) Chronic kidney disease, unspecified (Chronic) DM type 1 (diabetes mellitus, type 1) (Chronic) Surgical History Extraction of cataract (Inactive) Open Carpal Tunnel release (Inactive) Trigger Finger release (Inactive) ULNAR RETRACTMENT (Inactive) Family History Mother CMML (chronic myelomonocytic leukemia) Father Essential hypertension Sister No problems noted. Brother No problems noted. Brother No problems noted. 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 Pets and animals: Yes Pets and animals: cat(s), dog(s) and farm animals What type of physical activity do you participate in: none Frequency: does not exercise Chioma/Methodist: Catholic Special chioma needs: No Do you feel safe at home: Yes Do you feel safe in your relationship?: Yes Meds Home Medications Medication Instructions Recorded Confirmed Type tizanidine 2 mg PO HS #1 02/04/15 09/14/18 History fludrocortisone 0.1 mg PO DAILY #90 tab 12/08/15 09/14/18 History acetaminophen [Acetaminophen Extra 1,000 mg PO TID PRN PRN #180 tab 02/09/16 09/14/18 Rx Strength] cholecalciferol (vitamin D3) 5,000 unit PO DAILY 02/09/16 09/14/18 History glatiramer [Copaxone] 40 mg IM/SC . 3 X A WEEK 02/09/16 09/14/18 History gabapentin 100 mg PO daily prn #60 cap 04/14/17 09/14/18 Rx OneTouch Ultra Test #900 strip 04/25/17 09/14/18 Rx Glucagon Emergency Kit (human) 1 mg IJ PRN PRN #2 kit 09/18/17 09/14/18 History scopolamine base [Transderm-Scop] 1 patch TRANSDERMAL ONCE #2 patch 11/10/17 09/14/18 Rx ibuprofen 600 mg PO Q6H PRN #60 tab-cap 11/21/17 09/14/18 Rx fluconazole [Diflucan] 150 mg PO ONCE #1 tab-cap 12/27/17 09/14/18 Rx gabapentin 300 - 600 mg PO BID #270 tab-cap 01/19/18 09/14/18 Rx blood sugar diagnostic strips #900 each 03/13/18 09/14/18 Rx amlodipine 2.5 mg tablet 5 mg PO QAM #90 tab 05/18/18 09/14/18 Rx baclofen 10 mg tablet 10 mg PO BID PRN #60 tab 05/18/18 09/14/18 Rx lisinopril 40 mg tablet 40 mg PO HS #90 tab 05/18/18 09/14/18 Rx insulin lispro (U- 100) 100 14.1 unit SUBCUT DIRECTED #10 ml 05/23/18 09/14/18 Rx unit/mL subcutaneous pen amoxicillin 500 mg-potassium 1 tab PO BID #14 tab 09/10/18 09/14/18 Rx clavulanate 125 mg tablet ondansetron 4 mg disintegrating 4 mg PO TID PRN #20 tab.rapdis 09/10/18 09/14/18 Rx tablet cephalexin 500 mg tablet 500 mg PO BID #20 tab 09/13/18 09/14/18 Rx prochlorperazine maleate 5 mg 5 mg PO BID-TID PRN #30 tab 09/13/18 09/14/18 Rx tablet Allergies Allergy/AdvReac Type Severity Reaction Status Date / Time sulfur dioxide Allergy Intermediate Skin Rash Unverified 09/14/18 07:23 Exam Const General: cooperative and no acute distress Orientation: alert and oriented x3 [facility] Head: normocephalic and atraumatic Eyes Sclera: sclerae normal Neck Neck: no lymphadenopathy, trachea midline, supple and no JVD Resp Effort & Inspection: normal respiratory effort and able to speak in complete sentences Cardio Jugular venous pressure: no JVD Rate: regular rate Rhythm: regular rhythm GI Inspection: non-distended and other (insulin pump RLQ abdominal wall) Palpation: soft, not firm, no guarding, not rigid and tender in the RLQ (localized moderate tenderness in RLQ) Skin General skin exam: no jaundice Neuro General: alert and oriented x3 Cognition: normal cognition Speech: speech normal Results Imaging Abdomen CT scan report/results: report reviewed and image reviewed CT scan - pelvis: report reviewed and image reviewed Imaging Studies: Patient Name: REINALDO WHITTEN #: [id number]: ER Ordering Provider: Earnest Olson M.D. : [facility] ER Primary Care Provider: Jasson Avila DODate of Exam: 09/14/18Sex: F : 1975Age: 43 Exam(s) a CT:CT abdomen & pelvis w SYMPTOM/DIAGNOSIS: RLQ PAIN, TENDERNESS ABDOMEN AND PELVIC CT: CT examination of the abdomen and pelvis was performed with a bolus infusion of 100 cc's of Omnipaque 350. Images obtained through the lung bases are unremarkable. Liver, spleen and pancreas appear normal. Gallbladder and bile ducts are CT normal. Adrenals and kidneys appear unremarkable. No urinary tract calcification or obstruction. No abdominal wall hernia is seen. No abdominal or pelvic adenopathy is seen. Abdominal aorta is of normal diameter and no major vascular abnormality is seen. The appendix is dilated at about 13 mm. greatest diameter with an apparent proximal appendicolith as well as a couple of other tiny more distally located appendicoliths. There is marked fat edema around the appendix. No abscess identified at this time. No evidence of perforation. Free fluid in the pelvis is nonspecific and may represent peritoneal irritation versus ruptured ovarian cyst, a couple of collapse ovarian cysts are noted in the pelvis. CONCLUSION: Findings highly suggestive of acute appendicitis. No evidence of perforation or abscess formation. [id number]: Total DLP = 0.00 mGy-cm Ordered By: Earnest Olson M.D. CC: Dictated By: Kanu Frankel M.D. 09/14/18 0824 Transcribed By: Reinaldo Hdez 09/14/18 0911 This is privileged, confidential information intended only for the provider named. Any use or distribution by any person other than this provider is strictly prohibited. If you receive this report in error, please notify us immediately at [phone] and return the original report to us at the address above. Thank-you. Labs : 09/14/18 07:55 09/14/18 07:55 Laboratory Results - last 24 hr 09/14/18 09/14/18 09/14/18 07:13 07:55 07:55 WBC 12.63 H RBC 3.99 L Hgb 12.7 Hct 36.9 MCV 92.5 MCH 31.8 MCHC 34.4 RDW 12.5 Plt Count 157 MPV 11.0 Immature Gran % 0.2 Neutrophils % 84.9 Lymphocytes % 7.1 Monocytes % 7.7 Eosinophils % 0.0 Basophils % 0.1 Absolute Neutrophils 10.72 H Absolute Lymphocytes 0.90 L Absolute Monocytes 0.97 H Absolute Eosinophils 0.00 Absolute Basophils 0.01 Sodium 135 L Potassium 3.3 L Chloride 99 Carbon Dioxide 27.1 Anion Gap 8.9 BUN 13 Creatinine 1.20 H Estimated GFR/1.73 m2 48.58 Glucose 186 H Calcium 8.7 Total Bilirubin 1.0 AST 12 L ALT 15 Alkaline Phosphatase 61 Total Protein 6.5 Albumin 3.2 L Lipase 33 L Urine Color Yellow Urine Clarity Clear Urine pH 6.0 Ur Specific [place] 1.015 Urine Protein 100 H Urine Ketones 15 H Urine Blood Trace-intact H Urine Nitrite Negative Urine Bilirubin Negative Urine Urobilinogen 1.0 H Ur Leukocyte Esterase Trace H Urine RBC 3-5 H Urine WBC 5-10 Ur Epithelial Cells Many Urine Crystals Negative Urine Bacteria Few Urine Casts Negative Urine Mucus Negative Ur Culture Indicated? No/sq. contamination Urine Glucose 250 H Last Vital Signs Temp 36.8 C 09/14/18 09:32 Pulse 89 09/14/18 09:32 Resp 16 09/14/18 09:32 BP 122/67 09/14/18 09:32 Pulse Ox 98 09/14/18 09:32
--- NOTE | 2018-09-14 11:00 | APP_PTH ---
PATIENT: Na Anthony LOC: [facility]#:[id number] AGE/SX: 43/F ROOM: RE09/14/[address]: Frederic Goel : 1975 BED: A DIS: 09/14/2018 SPEC #: [id number] RECD: 09/14/18 13:02 STATUS: EFE RECristian #: [id number] RAINE: 09/14/18 11:[address]: Frederic Goel DEPT: Surgical Specimen RECD BY: Janine Costa ENTERED: 09/14/18 13:04 SP TYPE: Appendix OTHR DR: Jasson Avila DO Tissues: 1 - APPENDIX NOT INCIDENTAL Procedures: GROSS AND MICRO LEVEL 3 Comments: [id number]
[2018-09-14] MEDS: Bupivacaine 0.25% Pres-Free 30 ML VIAL (11:06)
--- NOTE | 2018-09-14 11:57 | ROE_ITS ---
Date of service: 09/14/18 Time of Service: 11:55 Operative Note DATE OF PROCEDURE: 09/14/18 PRE-OP DIAGNOSIS: Acute appendicitis POST-OP DIAGNOSIS: same (Acute gangrenous appendicitis) PROCEDURE: Laparoscopic appendectomy SURGEON: Frederic Goel LAUNDRY OPERATOR FINISHING: Wenceslao [place] ANESTHESIA: GETVirgil ESTIMATED BLOOD LOSS: 5 PATHOLOGY: other (Appendix) COMPLICATIONS: None Patient was transported to: PACU Indications: 43 y/o female who presented to the ED with signs and symptoms of acute appendicitis. Patient presents at this time for a laparoscopic appendectomy. Operative procedure including risks, benefits, and alternatives had been discussed with the patient and informed consent obtained prior to surgery. Findings: Acute gangrenous appendicitis. No perforation or abscess. Unremarkable right ovary and tube. Procedure Description: Patient was brought to the operating room and placed on the table in the supine position. Patient was intubated and placed under general anesthesia. SCDs in place on both lower extremities. Orozco catheter placed. Left arm tucked at the side. Patient had received a dose of Invanz in the ED for perioperative antibiotic coverage. Abdomen prepped and draped in the usual sterile fashion with chloraprep. Time out performed per protocol. Initial incision made just below the umbilicus with a 2-3 cm transverse incision which was carried down to the fascia. Fascia was elevated and incised. Peritoneal cavity was bluntly entered in the midline and swept with a finger. No adhesions noted. Stay sutures of 0-vicryl placed on either side of the fascial opening. Bonnie port inserted and abdomen insufflated with CO2 to a pressure of 15 mm Hg. Patient placed in Trendelenberg with the right side elevated. Remaining ports placed under direct vision after injection with 0.25% Marcaine including a 5 mm port in the suprapubic midline and a second 5 mm port in the LLQ. There was good visualization in the pelvis. Omentum noted to be wrapped over a gangrenous appendix which was curled on itself. No gross perforation or abscess seen. Terminal ileum and cecum were unremarkable. The base of the appendix was isolated and divided with the 45 mm medium-thick stapler cartridge on the endo MARK. A 45 mm vascular reload was utilized to divide the mesoappendix. The appendix was retrieved via the infraumbilical port site with the endocatch bag. Peritoneal cavity was irrigated with saline and suctioned until the effluent was clear. Cecum, terminal ileum, and visualized small bowel loops intact and viable with no signs of injury. Liver, gallbladder, right ovary/fallopian tube, and uterus were grossly unremarkable on inspection. Abdomen was decompressed. Fascia at the infraumbilical site closed by tying together the stay sutures in a pursestring fashion. Additional 0.25% Marcaine injected at this site for postop analgesia. Skin incisions closed with subcuticular 4-0 monocryl. Skin adhesive applied. Orozco catheter removed. Patient was extubated, awakened from anesthesia, and transferred to recovery in satisfactory condition. Patient tolerated surgery well.
--- NOTE | 2018-09-14 16:07 | W.PM.DS.N ---
Date of service: 09/14/18 Time of Service: 16:08 DS: Diagnosis Discharge Diagnosis (1) Acute appendicitis: Status: Acute Discharge Plan Disposition Patient Disposition: HOME Condition: Stable Discharge Details Chief Complaint: Abd Prob Clinical Impression: Acute appendicitis Reason For Visit: ACUTE APPENDICITIS Admit Date/Time: 09/14/18 09:38 Admit Provider: Frederic Goel Attending Provider: Frederic Goel Primary Care Provider: Jasson Avila ED Provider: Ashish [facility] Hospital Course Hospital Course: 43 y/o female admitted through the ED this am with acute appendicitis. She underwent an uneventful laparoscopic appendectomy and was found to have a gangrenous appendix but no evidence of ruptured appendix or abscess. Patient did well post-operatively. She is afebrile and tolerating a liquid diet. She has ambulated and voided. Pain is minimal per patient. She takes acetaminophen at home and declines need for pain med Rx. Home Meds and New Rx's Prescriptions: Continued amlodipine 2.5 mg tablet 5 mg PO QAM Qty: 90 RF: 4 lisinopril [Zestril] 40 mg tablet 40 mg PO HS Qty: 90 RF: 3 baclofen 10 mg tablet 10 mg PO BID PRN (Reason: muscle spasticity) Qty: 60 RF: 3 amoxicillin-pot clavulanate [Augmentin] 500-125 mg tablet 1 tab PO BID Qty: 14 RF: 0 ondansetron 4 mg tablet,disintegrating 4 mg PO TID PRN (Reason: nausea and vomiting) Qty: 20 RF: 2 tizanidine 2 MG tablet 2 mg PO HS Qty: 1 RF: 0 fludrocortisone 0.1 MG tablet 0.1 mg PO DAILY Qty: 90 RF: 3 gabapentin 100 MG capsule 100 mg PO daily prn Qty: 60 RF: 3 OneTouch Ultra Test 1 EACH strip 1 ea Miscellaneous 10x daily Qty: 900 RF: 12 Glucagon Emergency Kit (human) 1 MG kit 1 mg IJ PRN PRNQty: 2 RF: 6 scopolamine base [Transderm-Scop] 1 EACH patch 3 day 1 patch Transdermal ONCE Qty: 2 RF: 1 fluconazole [Diflucan] 150 MG tablet 150 mg PO ONCE Qty: 1 RF: 6 gabapentin 300 MG capsule 300 - 600 mg PO BID Qty: 270 RF: 3 Contour Test Strips strip .ROUTE .MEDSUPPLY Qty: 900 RF: 3 Humalog KwikPen Insulin 100 unit/mL insulin pen 14.1 unit subcut DIRECTED Qty: 10 RF: 12 prochlorperazine maleate [Compazine] 5 mg tablet 5 mg PO BID-TID PRN (Reason: nausea and vomiting) Qty: 30 RF: 0 cephalexin 500 mg tablet 500 mg PO BID Qty: 20 RF: 1 cholecalciferol (vitamin D3) 5,000 UNIT capsule 5,000 unit PO DAILY RF: 0 glatiramer [Copaxone] 40 MG/ML syringe 40 mg IM/SC . 3 X A WEEK RF: 0 acetaminophen [Acetaminophen Extra Strength] 500 MG tablet 1,000 mg PO TID PRN PRNQty: 180 RF: 0 ibuprofen 600 MG tablet 600 mg PO Q6H PRN Qty: 60 RF: 2 Discharge Instructions Instructions: Laparoscopic Appendectomy (DC) Additional Instructions: May climb stairs. May shower in am. No lifting > 20 pounds x 2 weeks. Call office/hospital for questions/concerns. Referrals: Rica Montalvo MD [ [facility] STAFF PHYSICIAN] - (Follow-up in office in 2 weeks - s/p lap appendectomy.) Activity:: No lifting > 20 pounds x 2 weeks. Equipment/Supplies:: No Equipment Needed Diet:: As Tolerated Discharge Orders Discharge Orders: Discharge Order (Routine); Ordered 09/14/18 Ordered By: Frederic Goel Exam Const General: cooperative, comfortable and no acute distress Orientation: alert and oriented x3 HENMT Head: normocephalic and atraumatic Eyes Sclera: sclerae normal Resp Effort & Inspection: normal respiratory effort and able to speak in complete sentences GI Inspection: non-distended Palpation: soft, not firm, no guarding and nontender DS: Data Vitals/I&O Vitals and I&O: Vital Signs Temperature 36.8 C 09/14/18 15:30 Temperature Source Tympanic 09/14/18 15:30 Pulse 72 09/14/18 15:30 Pulse Rhythm Regular 09/14/18 12:48 Respiratory Rate 18 09/14/18 15:30 Respiratory Effort Non-Labored 09/14/18 12:48 Respiratory Depth Normal 09/14/18 12:48 Respiratory Pattern Normal 09/14/18 12:48 Blood Pressure 108/63 09/14/18 15:30 Blood Pressure Position Supine 09/14/18 07:16 Pulse Oximetry 99 09/14/18 15:30 Respiratory End-tidal CO2 36 09/14/18 12:15 Oxygen Delivery Method Room Air 09/14/18 15:30 Oxygen Flow Rate 0 09/14/18 15:30 Pain Level 0 09/14/18 15:30 Comment 09/14/18 14:10 Intake & Output 09/13/18 09/14/18 09/14/18 23:59 11:59 23:59 Intake Total 1500 / 3150 1650 / 3150 Output Total 325 / 525 200 / 525 Balance 1175 / 2625 1450 / 2625 Weight 77.111 kg 77.111 kg Intake: IV 1500 / 2000 500 / 2000 Oral 1150 / 1150 Output: Urine 325 / 525 200 / 525 Other: Urine Color Yellow Yellow [place] Urine Appearance Clear Clear Emesis Description None None Voiding Methods Toilet Labs on day of discharge: Labs from last 24 hours 09/14/18 09/14/18 09/14/18 07:55 07:55 07:13 WBC 12.63 H RBC 3.99 L Hgb 12.7 Hct 36.9 MCV 92.5 MCH 31.8 MCHC 34.4 RDW 12.5 Plt Count 157 MPV 11.0 Immature Gran % 0.2 Neutrophils % 84.9 Lymphocytes % 7.1 Monocytes % 7.7 Eosinophils % 0.0 Basophils % 0.1 Absolute Neutrophils 10.72 H Absolute Lymphocytes 0.90 L Absolute Monocytes 0.97 H Absolute Eosinophils 0.00 Absolute Basophils 0.01 Sodium 135 L Potassium 3.3 L Chloride 99 Carbon Dioxide 27.1 Anion Gap 8.9 BUN 13 Creatinine 1.20 H Estimated GFR/1.73 m2 48.58 Glucose 186 H Calcium 8.7 Total Bilirubin 1.0 AST 12 L ALT 15 Alkaline Phosphatase 61 Total Protein 6.5 Albumin 3.2 L Lipase 33 L Urine Color Yellow Urine Clarity Clear Urine pH 6.0 Ur Specific [place] 1.015 Urine Protein 100 H Urine Ketones 15 H Urine Blood Trace-intact H Urine Nitrite Negative Urine Bilirubin Negative Urine Urobilinogen 1.0 H Ur Leukocyte Esterase Trace H Urine RBC 3-5 H Urine WBC 5-10 Ur Epithelial Cells Many Urine Crystals Negative Urine Bacteria Few Urine Casts Negative Urine Mucus Negative Ur Culture Indicated? No/sq. contamination Urine Glucose 250 H PFSH Medical History MS (multiple sclerosis) (Chronic) Peripheral neuralgia (Chronic) Essential hypertension (Chronic) Chronic kidney disease, unspecified (Chronic) DM type 1 (diabetes mellitus, type 1) (Chronic) Surgical History Extraction of cataract (Inactive) Open Carpal Tunnel release (Inactive) Trigger Finger release (Inactive) ULNAR RETRACTMENT (Inactive) Family History Mother CMML (chronic myelomonocytic leukemia) Father Essential hypertension Sister No problems noted. Brother No problems noted. Brother No problems noted. 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
== END 2018-09-14 17:15 | disposition home or self-care (01) ==
LOC: ER 08:55 → SUR 10:57 → ER 12:30 → MS 12:30
PROVIDERS: Emergency Medicine; Admitting Provider Surgery; Emergency Provider Emergency Medicine; PCP Emergency Medicine; Visit Provider Surgery
PROC: 0DTJ4ZZ Resection of Appendix, Percutaneous Endoscopic Approach (ICD-10-PCS; CPT 44970; principal; 2018-09-14 10:30)
DX: K35.891 Other acute appendicitis without perforation, with gangrene (principal); E10.9 Type 1 diabetes mellitus without complications; Z96.41 Presence of insulin pump (external) (internal); I10 Essential (primary) hypertension; G35 Multiple sclerosis; F17.210 Nicotine dependence, cigarettes, uncomplicated
CPT/HCPCS: 44970; 36415; 36416; 80053; 81025; 82962; 83690; 96361; 96365; 96375; 99223; 99285; NC; 74177; 81003; 81015; 85025; 88304; 99284; G0378; J0131; J1100; J1335; J1885; J2250; J2405; J3010; J3490

== ENCOUNTER 2018-12-31 00:43 | Outpatient (CLI) | payer OTHER, SELFPAY ==
--- NOTE | 2018-12-31 09:00 | DI.MAMMO_ITS ---
SYMPTOM/DIAGNOSIS: SCREENING, Z12.31 MAMMOGRAMS: Mammograms were interpreted according to the usual protocol including computer analysis with CAD system, tomosynthesis and C view imaging. Comparison is made with 2014. The breasts are composed of heterogeneously dense fibroglandular tissue, breast density, Category C. No suspicious masses or suspicious microcalcifications are seen. There has been no significant change. IMPRESSION: Category 1, negative mammogram. Yearly screening mammography is recommended. [facility] ASSESSMENT OF FINDINGS: Negative. Category 1. Patient will receive a letter notifying them of these results. Bi-RADS category C. The breasts are heterogeneously dense, which may obscure small masses.
== END 2018-12-31 01:03 ==
PROVIDERS: PCP Emergency Medicine; Visit Provider Emergency Medicine
DX: Z12.31 Encounter for screening mammogram for malignant neoplasm of breast (principal)
CPT/HCPCS: 77063; 77067

== ENCOUNTER 2019-05-02 07:10 | Emergency (ER) | payer OTHER, SELFPAY ==
[2019-05-02 07:14] VITALS: BP 126/81; PULSE 84; RESP 20; TEMP 37.1; O2SAT 100
--- NOTE | 2019-05-02 07:31 | ED.GENADUL_ITS ---
Discharge Plan Disposition Patient Disposition: HOME Condition: Good Discharge Details Chief Complaint: Nausea/Vomit/Diar Clinical Impression: Nausea Primary Care Provider: Jasson Avila ED Provider: Jesus Manuel Alarcon Home Meds and New Rx's Prescriptions: No Action amlodipine 2.5 mg tablet 5 mg PO QAM Qty: 90 RF: 4 lisinopril [Zestril] 40 mg tablet 40 mg PO HS Qty: 90 RF: 3 baclofen 10 mg tablet 10 mg PO BID PRN (Reason: muscle spasticity) Qty: 60 RF: 3 fluconazole [Diflucan] 150 mg tablet 150 mg PO ONCE Qty: 1 RF: 6 insulin lispro [Humalog KwikPen Insulin] 100 unit/mL insulin pen 14.1 unit subcut DIRECTED Qty: 10 RF: 12 ondansetron 4 mg tablet,disintegrating 4 mg PO TID PRN (Reason: nausea and vomiting) Qty: 20 RF: 2 tizanidine 2 MG tablet 2 mg PO HS Qty: 1 RF: 0 fludrocortisone 0.1 MG tablet 0.1 mg PO DAILY Qty: 90 RF: 3 gabapentin 100 MG capsule 100 mg PO daily prn Qty: 60 RF: 3 (DME) OneTouch Ultra Test 1 EACH strip 1 ea Miscellaneous 10x daily Qty: 900 RF: 12 Glucagon Emergency Kit (human) 1 MG kit 1 mg IJ PRN PRNQty: 2 RF: 6 scopolamine base [Transderm-Scop] 1 EACH patch 3 day 1 patch Transdermal ONCE Qty: 2 RF: 1 gabapentin 300 MG capsule 300 - 600 mg PO BID Qty: 270 RF: 3 prochlorperazine maleate [Compazine] 5 mg tablet 5 mg PO BID-TID PRN (Reason: nausea and vomiting) Qty: 30 RF: 0 (DME) Contour Test Strips Strip See Dose Instructions .ROUTE .MEDSUPPLY Qty: 900 RF: 3 cholecalciferol (vitamin D3) 5,000 UNIT capsule 5,000 unit PO DAILY RF: 0 glatiramer [Copaxone] 40 MG/ML syringe 40 mg IM/SC . 3 X A WEEK RF: 0 acetaminophen [Acetaminophen Extra Strength] 500 MG tablet 1,000 mg PO TID PRN PRNQty: 180 RF: 0 ibuprofen 600 MG tablet 600 mg PO Q6H PRN Qty: 60 RF: 2 Discharge Instructions Instructions: Acute Nausea and Vomiting (ED) Additional Instructions: At this time your kidney function, electrolytes, and pancreas function in regards to non-diabetes related capabilities appear normal. I suspect that your symptoms are a reflection of a resolving gastroenteritis from a virus. Please continue to drink plenty of fluids, stick with the brat diet for the next week. If you notice any worsening of your symptoms, or any new symptoms such as vomiting, diarrhea, fever, chills, shortness of breath, chest pain, numbness, weakness, or fainting , please return immediately to the emergency department for reevaluation. Please follow up with your primary care provider as soon as possible for reassessment and reevaluation. As always, it was a pleasure participating in your medical care today. Referrals: Jasson Avila DO [Primary Care Provider] - Discharge Data Discharge Date/Time-TO BE ENTERED AT DEPARTURE: 05/02/19 08:52 Medical Decision Making <Earnest Olson MD - Last Filed: 05/02/19 21:20> Patient here with persistent nausea and difficulty eating and drinking after a bout of apparent gastroenteritis over the weekend. This has been causing her to have some low sugars. She has been using Zofran and Compazine. Her vital signs are normal. Her abdomen is benign. We will go ahead and give a liter of LR and a dose of Phenergan to see if this works any better for her. We will check a BMP. <Jesus Manuel Alarcon DO - Last Filed: 05/02/19 08:25> Patient was signed out to me by my colleague Dr. Earnest Olson. Please see his documentation for initial history, physical exam assessment and plan. Patient presented for symptoms of nausea vomiting that occurred a week ago, however she has had mild persistent nausea for the last few days, decreased p.o. intake. Sugars have been slightly low and she is a diabetic. Basic labs were ordered, and a liter of LR was given. Differential was viral gastroenteritis resolving. Laboratory work-up is returned unremarkable, lipase normal. Electrolytes unremarkable. LR was given. Repeat abdominal exam demonstrates no abdominal tenderness whatsoever. Patient is feeling much better. Patient feels stable for discharge. At this time with a unremarkable reassessment, normal labs, and no signs of an acute surgical abdomen or other life-threatening abnormality feel that the patient be safely discharged home. Recommend continuation of brat diet, gentle fluid intake, prompt return for worsening of symptoms. I have extensively reviewed the treatment plan and discharge instructions with the patient. I have addressed all patient concerns at this time. The patient was made aware of what symptoms to monitor for that would warrant a return to the emergency department. Discussed the plan with the patient, they demonstrate verbal understanding and agreement with our assessment and plan at this time. HPI <Earnest Olson MD - Last Filed: 05/02/19 21:20> General Mode of arrival: ambulatory . Date/Time Provider Initiated Documentation: 05/02/19 07:18 . Limitations to Documentation: no limitations . Information obtained by: patient and RN notes reviewed . HPI Narrative: Patient presents to ED with continued nausea and decreased appetite. Over the weekend she had about 24 hours of nausea/vomiting/diarrhea. This has resolved and she has had no further vomiting or diarrhea this week, however, she has persistent nausea with no appetite and difficulty eating and drinking. This is causing her to have some low sugars. She thought she would be feeling better by now. She does not have abdominal pain. She has not had fever. She thought maybe if she came in and got some fluids she be better. She does have Zofran and Compazine which she has been using at home. She just cannot seem to get over the nauseated feeling. Related Data Home Medications Medication Instructions Recorded Confirmed tizanidine 2 mg PO HS #1 02/04/15 05/02/19 fludrocortisone 0.1 mg PO DAILY #90 tab 12/08/15 05/02/19 acetaminophen [Acetaminophen Extra 1,000 mg PO TID PRN PRN #180 tab 02/09/16 05/02/19 Strength] cholecalciferol (vitamin D3) 5,000 unit PO DAILY 02/09/16 05/02/19 glatiramer [Copaxone] 40 mg IM/SC . 3 X A WEEK 02/09/16 05/02/19 gabapentin 100 mg PO daily prn #60 cap 04/14/17 05/02/19 OneTouch Ultra Test #900 strip 04/25/17 05/02/19 Glucagon Emergency Kit (human) 1 mg IJ PRN PRN #2 kit 09/18/17 05/02/19 scopolamine base [Transderm-Scop] 1 patch TRANSDERMAL ONCE #2 patch 11/10/17 05/02/19 ibuprofen 600 mg PO Q6H PRN #60 tab-cap 11/21/17 05/02/19 gabapentin 300 - 600 mg PO BID #270 tab-cap 01/19/18 05/02/19 amlodipine 2.5 mg tablet 5 mg PO QAM #90 tab 05/18/18 05/02/19 baclofen 10 mg tablet 10 mg PO BID PRN #60 tab 05/18/18 05/02/19 lisinopril 40 mg tablet 40 mg PO HS #90 tab 05/18/18 05/02/19 ondansetron 4 mg disintegrating 4 mg PO TID PRN #20 tab.rapdis 09/10/18 05/02/19 tablet prochlorperazine maleate 5 mg 5 mg PO BID-TID PRN #30 tab 09/13/18 05/02/19 tablet fluconazole 150 mg tablet 150 mg PO ONCE #1 tab-cap 11/28/18 05/02/19 insulin lispro 100 unit/mL 14.1 unit SUBCUT DIRECTED #10 ml 11/28/18 05/02/19 subcutaneous pen blood sugar diagnostic #900 each 02/12/19 05/02/19 Previous Rx's Medication Instructions Recorded acetaminophen [Acetaminophen Extra 1,000 mg PO TID PRN PRN #180 tab 02/09/16 Strength] gabapentin 100 mg PO daily prn #60 cap 04/14/17 OneTouch Ultra Test #900 strip 04/25/17 scopolamine base [Transderm-Scop] 1 patch TRANSDERMAL ONCE #2 patch 11/10/17 ibuprofen 600 mg PO Q6H PRN #60 tab-cap 11/21/17 gabapentin 300 - 600 mg PO BID #270 tab-cap 01/19/18 amlodipine 2.5 mg tablet 5 mg PO QAM #90 tab 05/18/18 baclofen 10 mg tablet 10 mg PO BID PRN #60 tab 05/18/18 lisinopril 40 mg tablet 40 mg PO HS #90 tab 05/18/18 ondansetron 4 mg disintegrating 4 mg PO TID PRN #20 tab.rapdis 09/10/18 tablet prochlorperazine maleate 5 mg 5 mg PO BID-TID PRN #30 tab 09/13/18 tablet fluconazole 150 mg tablet 150 mg PO ONCE #1 tab-cap 11/28/18 insulin lispro 100 unit/mL 14.1 unit SUBCUT DIRECTED #10 ml 11/28/18 subcutaneous pen blood sugar diagnostic #900 each 02/12/19 Allergies Allergy/AdvReac Type Severity Reaction Status Date / Time sulfur dioxide Allergy Intermediate Skin Rash Verified 05/02/19 07:17 General Stated Complaint: Nausea/Vomit/Diar ABDIAS: 4 Review of Systems <Earnest Olson MD - Last Filed: 05/02/19 21:20> Narrative: As documented in HPI otherwise negative as below. Const: no fever, chills, weakness Resp: no cough, SOB, pleuritic pain CV: no CP, diaphoresis, edema, syncope GI: nausea; no abdominal pain, vomiting, diarrhea Neuro: no headache, numbness, focal weakness, confusion PFSH <Earnest Olson MD - Last Filed: 05/02/19 21:20> Medical History Chronic kidney disease, unspecified (Chronic) DM type 1 (diabetes mellitus, type 1) (Chronic) Essential hypertension (Chronic) MS (multiple sclerosis) (Chronic) DX by Dr. Bolaños at [facility] Peripheral neuralgia (Chronic) diabetic; onset at age 12 Surgical History Extraction of cataract (Inactive) O.U. 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 Const: WDWN female in NAD. HEENT: NC/AT. Normal facial exam. MMM. Eyes: Normal conjunctiva and sclera. Neck: Supple. Trachea midline. Lungs: Normal respiratory effort. GI: Soft. NT/ND. No guarding or rebound. Neuro: A+O x 3. CN grossly in tact. No gross motor or sensory deficit. Ext: No C/C/E. Skin: Warm and dry without rash. Course <Earnest Olson MD - Last Filed: 05/02/19 21:20> Vital Signs Vital signs: Vital Signs Temperature 98.8 F 05/02/19 07:14 Pulse 84 05/02/19 07:14 Respiratory Rate 20 05/02/19 07:14 Blood Pressure 126/81 05/02/19 07:14 Pulse Oximetry 100 05/02/19 07:14 Temperature 98.8 F 05/02/19 07:14 Temperature Source Temporal Artery Scan 05/02/19 07:14 Pulse 84 05/02/19 07:14 Respiratory Rate 20 05/02/19 07:14 Blood Pressure 126/81 05/02/19 07:14 Blood Pressure Position Sitting 05/02/19 07:14 Pulse Oximetry 100 05/02/19 07:14 Oxygen Delivery Method Room Air 05/02/19 07:14 Oxygen Flow Rate 0 05/02/19 07:14 Pain Level 2 05/02/19 07:14 Sign Out <Earnest Olson MD - Last Filed: 05/02/19 21:20> Sign Out Data: Sign Out Comment: Pending labs and reevaluation after fluids and Phenergan. Last updated by Earnest Olson MD at 05/02/19 07:53
[2019-05-02] MEDS: Lactated Ringers 1,000 ML 1000 ML IV (07:39)
[2019-05-02] MEDS: Normal Saline Flush 10 ML SYR IVP (07:46)
[2019-05-02 08:08] LABS: Anion Gap 6.1 mmol/L (3-11); BUN 7 mg/dL (7-18); CO2 28.9 mmol/L (21.0-32.0); CREATININE 1.01 mg/dL (0.55-1.02); Calcium 8.8 mg/dL (8.5-10.1); Chloride 106 mmol/L (98-107); Estimated GFR 59.27 (mL/min/1.73m2); Glucose 117 mg/dL (74-106); Potassium 3.6 mmol/L (3.5-5.1); Sodium 141 mmol/L (136-145)
[2019-05-02 08:09] LABS: Lipase 33 U/L (73-393)
[2019-05-02 08:48] VITALS: BP 133/77; PULSE 91; RESP 20; O2SAT 100
== END 2019-05-02 08:52 | disposition home or self-care (01) ==
PROVIDERS: Emergency Medicine; Emergency Provider Student in an Organized Health Care Education/Training Program; PCP Emergency Medicine
DX: K52.9 Noninfective gastroenteritis and colitis, unspecified (principal); R11.0 Nausea; E10.22 Type 1 diabetes mellitus with diabetic chronic kidney disease; I12.9 Hypertensive chronic kidney disease with stage 1 through stage 4 chronic kidney disease, or unspecified chronic kidney disease; N18.9 Chronic kidney disease, unspecified; G35 Multiple sclerosis
CPT/HCPCS: 36415; 80048; 83690; 96361; 96374; 99284

== ENCOUNTER 2019-06-19 07:00 | Outpatient (CLI) | payer OTHER, SELFPAY ==
[2019-06-19 12:48] LABS: Anion Gap 8.9 mmol/L (3-11); BUN 16 mg/dL (7-18); CO2 28.1 mmol/L (21.0-32.0); CREATININE 1.11 mg/dL (0.55-1.02); Calcium 9.1 mg/dL (8.5-10.1); Calculated LDL 82 mg/dL; Chloride 103 mmol/L (98-107); Cholesterol 172 mg/dL (<200); Estimated GFR 53.15 (mL/min/1.73m2); Glucose 157 mg/dL (74-106); HDL Cholesterol 83 mg/dL (40-60); Potassium 4.3 mmol/L (3.5-5.1); Sodium 140 mmol/L (136-145); Triglyceride 37 mg/dL (<150)
[2019-06-19 14:22] LABS: Hemoglobin A1C 6.5 % (3.8-5.6)
== END 2019-06-19 07:20 ==
PROVIDERS: PCP Emergency Medicine; Visit Provider Emergency Medicine
DX: Z00.00 Encounter for general adult medical examination without abnormal findings (principal)
CPT/HCPCS: 36415; 80048; 80061; 83036

== ENCOUNTER 2019-07-26 04:23 | Outpatient (CLI) | payer OTHER, SELFPAY ==
--- NOTE | 2019-07-26 14:04 | DI.RAD_ITS ---
EXAM: RF JOINT INJECTION FLUORO GUID CLINICAL HISTORY: LT SHOULDER PAIN-L SHOULDER INJ UNDER FLUORO, M25.512. TECHNIQUE: 2D and realtime digital imaging was performed. COMPARISON: No exams were available for comparison FINDINGS: Fluoroscopy was provided for Dr. Langford for guidance while performing a right shoulder injection. Please see procedure note for details. Fluoro Time: 12 seconds
[2019-07-26] MEDS: Omnipaque 300 MG/ML 10 ML BTL IJ (14:13)
[2019-07-26] MEDS: methylPREDNISolone ACETATE 80 MG/ML VIAL IM (14:13)
[2019-07-26] MEDS: Bupivacaine 0.5% Pres-Free 10 ML VIAL 5 ML IJ (14:14)
--- NOTE | 2019-07-26 18:27 | W.PROCNOTE ---
Date of service: 07/26/19 Time of Service: 14:04 Procedure Note Date of procedure: 07/26/19 Procedure: Left Shoulder Injection Surgeon/Proceduralist/Physician: Kirk Langford Procedure Indications: Na has had persistent pain of the LEFT shoulder. Noninvasive measures have been tried. She has good succes with previous intra-articular injection, so an injection under fluoroscopy was recommended. I had discussed the risks of the procedure and the patient elected to proceed. Procedure Description: Na was greeted in the flouroscopy room. The correct side was identified and the consent was reviewed with the patient and signed. The patient was then placed in the supine position on the fluoroscopy table. The LEFT shoulder was then prepped with Chloraprep. The anterior injection starting point was identiifed by bony landmarks and fluoroscopy. The skin and soft tissue in the tract of the injection was anesthetized with 1% Lidocaine. A spinal needle was then inserted deep into the shoulder joint at the level of the recess between the glenoid and superior humeral head. A small amount of Omnipaque solution was injected to confirm intraarticular placement. Once confirmed, the shoulder was injected with 4cc of 0.5% Bupivicaine and 80mg of Depo-Medrol. A bandaid was placed on the injection site. The patient tolerated the procedure well and noted improvement in pre-injection pain.
== END 2019-07-26 04:43 ==
PROVIDERS: PCP Emergency Medicine; Visit Provider Student in an Organized Health Care Education/Training Program
DX: M25.512 Pain in left shoulder (principal)
CPT/HCPCS: 20610; 77002; J1040

== ENCOUNTER 2019-08-01 13:32 | Outpatient (CLI) | payer OTHER, SELFPAY ==
[2019-08-01 08:02] LABS: Hemoglobin A1C 6.1 % (3.8-5.6)
[2019-08-01 08:29] LABS: Anion Gap 6.8 mmol/L (3-11); BUN 11 mg/dL (7-18); CO2 32.2 mmol/L (21.0-32.0); CREATININE 0.99 mg/dL (0.55-1.02); Calcium 8.9 mg/dL (8.5-10.1); Chloride 102 mmol/L (98-107); Glucose 145 mg/dL (74-106); Potassium 3.1 mmol/L (3.5-5.1); Sodium 141 mmol/L (136-145)
== END 2019-08-01 13:52 ==
PROVIDERS: PCP Emergency Medicine; Visit Provider Internal Medicine Nephrology
DX: N18.3 Chronic kidney disease, stage 3 (moderate) (principal); E10.29 Type 1 diabetes mellitus with other diabetic kidney complication; R80.9 Proteinuria, unspecified
CPT/HCPCS: 36415; 80048; 83036

== ENCOUNTER 2019-10-24 06:31 | Outpatient (CLI) | payer OTHER, SELFPAY ==
[2019-10-24 07:42] LABS: HGB 13.5 g/dL (12.0-15.5); Mean Corp. HGB Concentration 34.6 g/dL (32.0-36.0); Mean Corpuscular Hemoglobin 32.4 pg (27.0-33.0); Mean Corpuscular Volume 93.5 fL (80-95); Platelet Count 231 x1000/uL (130-400); RBC 4.17 m/cumm (4.00-5.20); RBC Distribution Width 12.4 % (11.7-14.6); White Blood Cell Count 7.25 k/cumm (4.4-10.8)
[2019-10-24 09:09] LABS: ALT 23 U/L (14-59); AST 17 U/L (15-37); Albumin 3.8 g/dL (3.4-5.0); Alkaline Phosphatase 88 U/L (46-116); Anion Gap 4.1 mmol/L (3-11); BUN 10 mg/dL (7-18); Bilirubin, Total 0.3 mg/dL (0.2-1.0); CO2 29.9 mmol/L (21.0-32.0); CREATININE 1.23 mg/dL (0.55-1.02); Calcium 9.7 mg/dL (8.5-10.1); Chloride 103 mmol/L (98-107); Estimated GFR 47.01 (mL/min/1.73m2); Glucose 65 mg/dL (74-106); Potassium 4.3 mmol/L (3.5-5.1); Sodium 137 mmol/L (136-145); Total Protein 6.9 g/dL (6.4-8.2)
[2019-10-24 14:32] LABS: Hemoglobin A1C 6.5 % (3.8-5.6)
== END 2019-10-24 06:51 ==
PROVIDERS: PCP Emergency Medicine; Visit Provider Emergency Medicine
DX: E11.9 Type 2 diabetes mellitus without complications (principal); I10 Essential (primary) hypertension; N18.9 Chronic kidney disease, unspecified; M79.2 Neuralgia and neuritis, unspecified
CPT/HCPCS: 36415; 80053; 85027; 83036

== ENCOUNTER 2019-11-29 01:10 | Outpatient (CLI) | payer OTHER, SELFPAY ==
[2019-11-29 09:37] LABS: Anion Gap 7.7 mmol/L (3-11); BUN 13 mg/dL (7-18); CO2 25.3 mmol/L (21.0-32.0); CREATININE 1.18 mg/dL (0.55-1.02); Calcium 9.1 mg/dL (8.5-10.1); Chloride 102 mmol/L (98-107); Estimated GFR 49.31 (mL/min/1.73m2); Glucose 84 mg/dL (74-106); Potassium 4.6 mmol/L (3.5-5.1); Sodium 135 mmol/L (136-145)
== END 2019-11-29 01:30 ==
PROVIDERS: PCP Emergency Medicine; Visit Provider Internal Medicine Nephrology
DX: N18.3 Chronic kidney disease, stage 3 (moderate) (principal); E10.29 Type 1 diabetes mellitus with other diabetic kidney complication; R80.9 Proteinuria, unspecified
CPT/HCPCS: 36415; 80048

== ENCOUNTER 2020-01-20 02:36 | Outpatient (CLI) | payer OTHER, SELFPAY ==
[2020-01-20 07:19] LABS: Abs Immature Grans 0.02 10^3/uL (0.0-0.06); Absolute Basophil Count 0.03 10^3/uL (0.0-0.2); Absolute Lymphocyte Count 1.84 10^3/uL (1.2-3.4); Absolute Monocyte Count 0.39 10^3/uL (0.1-0.8); Absolute Neutrophil Count 4.12 10^3/uL (1.2-6.7); Basophils % 0.4; Eosinophils % 4.5; HGB 13.4 g/dL (11.2-15.7); Immature Grans % 0.3; Lymphocytes % 27.5; MCH 32.3 pg (27.0-33.0); MCHC 33.5 % (32.0-36.0); MCV 96.4 fL (80-95); Monocytes % 5.8; Neutrophils % 61.5; Nucleated RBC 0 %; Platelet Count 186 10^3/uL (130-400); RBC 4.15 10^6/uL (3.93-5.22); RDW 12.1 % (11.7-14.6)
[2020-01-20 08:09] LABS: PROTEIN 31.5 mg/dL
[2020-01-20 08:10] LABS: COMMENT (LAB VIEW ONLY) 133.73 mg/dL; Prot/Crea Ur Ratio 0.23
[2020-01-20 08:48] LABS: Anion Gap 6.2 mmol/L (3-11); BUN 14 mg/dL (7-18); CO2 28.8 mmol/L (21.0-32.0); CREATININE 1.12 mg/dL (0.55-1.02); Calcium 9.3 mg/dL (8.5-10.1); Chloride 103 mmol/L (98-107); Estimated GFR 52.37 (mL/min/1.73m2); Glucose 41 mg/dL (74-106); PHOSPHORUS 3.8 mg/dL (2.6-4.7); Potassium 4.1 mmol/L (3.5-5.1); Sodium 138 mmol/L (136-145)
[2020-01-21 09:57] LABS: Parathyroid Hormone,Intact 25 pg/mL (19-88)
== END 2020-01-20 02:56 ==
PROVIDERS: PCP Emergency Medicine; Visit Provider Internal Medicine Nephrology
DX: N25.89 Other disorders resulting from impaired renal tubular function (principal); E10.21 Type 1 diabetes mellitus with diabetic nephropathy
CPT/HCPCS: 36415; 80048; 82040; 82565; 83970; 84100; 84156; 85025

== ENCOUNTER 2020-05-01 02:32 | Outpatient (CLI) | payer OTHER, SELFPAY ==
[2020-05-01 07:58] LABS: Abs Immature Grans 0.01 10^3/uL (0.0-0.06); Absolute Basophil Count 0.03 10^3/uL (0.0-0.2); Absolute Eosinophil Count 0.22 10^3/uL (0.0-0.7); Absolute Lymphocyte Count 1.29 10^3/uL (1.2-3.4); Absolute Monocyte Count 0.31 10^3/uL (0.1-0.8); Absolute Neutrophil Count 2.97 10^3/uL (1.2-6.7); Basophils % 0.6; Eosinophils % 4.6; HCT 39.6 % (36.0-46.0); HGB 13.3 g/dL (11.2-15.7); Immature Grans % 0.2; Lymphocytes % 26.7; MCH 32.2 pg (27.0-33.0); MCHC 33.6 % (32.0-36.0); MCV 95.9 fL (80-95); MPV 11.3 fL (8.0-11.0); Monocytes % 6.4; Neutrophils % 61.5; Nucleated RBC 0 %; Platelet Count 179 10^3/uL (130-400); RBC 4.13 10^6/uL (3.93-5.22); RDW 12.1 % (11.7-14.6); RDW-SD 42.6 fL; WBC 4.83 10^3/uL (4.4-10.8)
[2020-05-01 08:37] LABS: PROTEIN 27.9 mg/dL
[2020-05-01 08:37] LABS: Albumin 3.8 g/dL (3.4-5.0); Anion Gap 6.7 mmol/L (3-11); BUN 13 mg/dL (7-18); CO2 27.3 mmol/L (21.0-32.0); CREATININE 1.15 mg/dL (0.55-1.02); Chloride 105 mmol/L (98-107); Glucose 82 mg/dL (74-106); Potassium 3.9 mmol/L (3.5-5.1); Sodium 139 mmol/L (136-145)
[2020-05-01 08:45] LABS: COMMENT (LAB VIEW ONLY) 109.07 mg/dL; Prot/Crea Ur Ratio 0.25
[2020-05-01 08:48] LABS: Hemoglobin A1C 5.7 % (<5.7)
[2020-05-01 09:04] LABS: PHOSPHORUS 3.2 mg/dL (2.6-4.7)
[2020-05-04 12:55] LABS: Parathyroid Hormone,Intact 24 pg/mL (19-88)
== END 2020-05-01 02:52 ==
PROVIDERS: PCP Emergency Medicine; Visit Provider Internal Medicine Nephrology
DX: E10.21 Type 1 diabetes mellitus with diabetic nephropathy (principal); I95.9 Hypotension, unspecified; R80.1 Persistent proteinuria, unspecified; R79.89 Other specified abnormal findings of blood chemistry; N25.89 Other disorders resulting from impaired renal tubular function
CPT/HCPCS: 36415; 80048; 82040; 82565; 83036; 83970; 84100; 84156; 85025

== ENCOUNTER 2020-05-14 00:42 | Outpatient (CLI) | payer OTHER, SELFPAY ==
--- NOTE | 2020-05-14 07:30 | DI.RAD_ITS ---
EXAM: RF JOINT INJECTION FLUORO GUID CLINICAL HISTORY: L SHOULDER INJ UNDER FLUORO,biceps tendinitis lt shoulder,m75.22 TECHNIQUE: COMPARISON: No exams were available for comparison FINDINGS: C-arm fluoroscopy utilized by Dr. Langford during left shoulder joint injection. Please see Dr. Osorio rouse procedure note. Fluoro time not indicated. IMPRESSION: RADIATION DOSE DELIVERED: Total DLP
--- NOTE | 2020-05-14 14:04 | W.PROCNOTE ---
Date of service: 05/14/20 Time of Service: 14:06 Procedure Note Date of procedure: 05/14/20 Procedure: Left Shoulder Injection Surgeon/Proceduralist/Physician: Kirk Langford Procedure Diagnosis: Left Rotator Cuff Tendinitis Procedure Indications: Na has had persistent pain of the LEFT shoulder. Noninvasive measures have been tried. To serve as both diagnostic and therapeutic, an injection under fluoroscopy was recommended. I had discussed the risks of the procedure and the patient elected to proceed. Procedure Description: Na was greeted in the flouroscopy room. The correct side was identified and the consent was reviewed with the patient and signed. The patient was then placed in the supine position on the fluoroscopy table. The LEFT shoulder was then prepped with Chloraprep. The anterior injection starting point was identiifed by bony landmarks and fluoroscopy. The skin and soft tissue in the tract of the injection was anesthetized with 1% Lidocaine. A spinal needle was then inserted deep into the shoulder joint at the level of the recess between the glenoid and superior humeral head. A small amount of Omnipaque solution was injected to confirm intraarticular placement. Once confirmed, the shoulder was injected with 5cc of 0.5% Bupivicaine and 80mg of Depo-Medrol. A bandaid was placed on the injection site. The patient tolerated the procedure well and noted improvement in pre-injection pain.
[2020-05-14] MEDS: methylPREDNISolone ACETATE 80 MG/ML VIAL IM (14:07)
[2020-05-14] MEDS: Omnipaque 300 MG/ML 10 ML BTL IJ (14:07)
[2020-05-14] MEDS: Bupivacaine 0.5% Pres-Free 10 ML VIAL 5 ML IJ (14:08)
== END 2020-05-14 01:02 ==
PROVIDERS: PCP Emergency Medicine; Visit Provider Student in an Organized Health Care Education/Training Program
DX: M25.512 Pain in left shoulder (principal)
CPT/HCPCS: 20610; 77002; J1040

== ENCOUNTER 2020-05-18 06:45 | Emergency (ER) | payer OTHER, SELFPAY ==
--- NOTE | 2020-05-18 06:45 | DI.RAD_ITS ---
EXAM: XR FOOT RT COMPLETE CLINICAL HISTORY: pain in 3rd-5th metatarsals after fall. TECHNIQUE: 2D digital imaging was performed. COMPARISON: No exams were available for comparison FINDINGS: BONES: There is a nondisplaced fracture seen through the base of the right 5th metatarsal. It does n ot appear to contact the articular surface. No other fracture or dislocation is identified. No bony destructive lesion is seen. JOINTS: No dislocation present. SOFT TISSUE: Normal. IMPRESSION: Nondisplaced fracture through the base of the right 5th metatarsal. Findings were discussed with the emergency department at 9:30 a.m. on 05/18/2020. DATA REPOSITORY: RADIATION DOSE DELIVERED:
[2020-05-18 06:49] VITALS: BP 160/87; PULSE 92; RESP 16; TEMP 36.8; O2SAT 99
--- NOTE | 2020-05-18 06:57 | ED.GENADUL_ITS ---
Discharge Plan Disposition Patient Disposition: HOME Condition: Good Discharge Details Clinical Impression: Right foot sprain Primary Care Provider: Jasson Avila ED Provider: Jesus Manuel Alarcon Home Meds and New Rx's Prescriptions: Continued amlodipine 2.5 mg tablet 5 mg PO QAM Qty: 90 RF: 4 baclofen 10 mg tablet 10 mg PO BID PRN (Reason: muscle spasticity) Qty: 60 RF: 3 fluconazole [Diflucan] 150 mg tablet 150 mg PO ONCE Qty: 1 RF: 6 ondansetron 4 mg tablet,disintegrating 4 mg PO TID PRN (Reason: nausea and vomiting) Qty: 20 RF: 2 tizanidine 2 MG tablet 2 mg PO HS Qty: 1 RF: 0 fludrocortisone 0.1 MG tablet 0.1 mg PO DAILY Qty: 90 RF: 3 gabapentin 100 MG capsule 100 mg PO daily prn Qty: 60 RF: 3 Glucagon Emergency Kit (human) 1 MG kit 1 mg IJ PRN PRNQty: 2 RF: 6 scopolamine base [Transderm-Scop] 1 EACH patch 3 day 1 patch Transdermal ONCE Qty: 2 RF: 1 gabapentin 300 MG capsule 300 - 600 mg PO BID Qty: 270 RF: 3 prochlorperazine maleate [Compazine] 5 mg tablet 5 mg PO BID-TID PRN (Reason: nausea and vomiting) Qty: 30 RF: 0 metoclopramide HCl [Reglan] 10 mg tablet 10 mg PO Q6H PRN (Reason: nausea and vomiting) Qty: 20 RF: 0 lisinopril [Zestril] 40 mg tablet 40 mg PO HS Qty: 90 RF: 3 insulin lispro [Humalog U-100 Insulin] 100 unit/mL solution 1 sliding sc SC USEASDIRECTD Qty: 30 RF: 2 (DME) blood sugar diagnostic Strip 1 ea Miscellaneous 10x daily Qty: 900 RF: 12 (DME) blood-glucose meter [OneTouch Verio Meter] Misc See Rx Instructions .ROUTE .MEDSUPPLY Qty: 1 RF: 0 (DME) Contour Test Strips Strip See Dose Instructions .ROUTE .MEDSUPPLY Qty: 900 RF: 8 cholecalciferol (vitamin D3) 5,000 UNIT capsule 5,000 unit PO DAILY RF: 0 glatiramer [Copaxone] 40 MG/ML syringe 40 mg IM/SC . 3 X A WEEK RF: 0 acetaminophen [Acetaminophen Extra Strength] 500 MG tablet 1,000 mg PO TID PRN PRNQty: 180 RF: 0 ibuprofen 600 MG tablet 600 mg PO Q6H PRN Qty: 60 RF: 2 Discharge Instructions Instructions: Foot Sprain (ED) Additional Instructions: At this time your x-ray shows no evidence of significant fracture. At the very least I do feel that you likely have a notable sprain. Please remain nonweightbearing on your foot for the next 2 to 3 days, you can then gradually transition to weightbearing/toe-touch as tolerated while wearing shoes. Take Tylenol and Motrin as needed for the pain. If you notice any worsening of your symptoms, or any new symptoms such as vomiting, diarrhea, fever, chills, shortness of breath, chest pain, numbness, weakness, or fainting , please return immediately to the emergency department for reevaluation. Please follow up with your primary care provider as soon as possible for reassessment and reevaluation. As always, it was a pleasure participating in your medical care today. Referrals: Jasson Avila DO [Primary Care Provider] - Medical Decision Making 44-year-old female with a past medical history of diabetes, MS, hypertension, presents today for right foot pain. The patient states that yesterday she rolled her foot inward while walking on the stairs, had pain in the mid lateral section of the right foot. She took some ibuprofen and slightly improved her symptoms. She denies hearing any pop. She denies any pain in the ankle angelo or knee. No other complaints at this time. Pain is made worse with weightbearing. No other modifying factors. Exam demonstrates mild pain and tenderness at the midshaft of the third fourth and fifth right metatarsals. Normal neurovascular exam. Suspect sprain versus small fracture. Will get x- rays, administer crutches. 7:26 AM X-ray results have returned, per virtual radiology no evidence of fracture. Suspect notable sprain. patient's pain well controlled. Will give crutches and short walking boot for home use. Recommend NSAIDs. Discussed red flags which to return. I have extensively reviewed the treatment plan and discharge inst ructions with the patient. I have addressed all patient concerns at this time. The patient was made aware of what symptoms to monitor for that would warrant a return to the emergency department. Discussed the plan with the patient, they demonstrate verbal understanding and agreement with our assessment and plan at this time. FINDINGS: Bones/joints: Normal. Soft tissues: Normal. IMPRESSION: No acute findings. Thank you for allowing us to participate in the care of your patient. Dictated and Authenticated by: Curtis Lowe MD 05/18/2020 7:15 AM Eastern Time ([place] & [place]) HPI General Date/Time Provider Initiated Documentation: 05/18/20 06:49 . HPI Narrative: 44-year-old female with a past medical history of diabetes, MS, hypertension, presents today for right foot pain. The patient states that yesterday she rolled her foot inward while walking on the stairs, had pain in the mid lateral section of the right foot. She took some ibuprofen and slightly improved her symptoms. She denies hearing any pop. She denies any pain in the ankle angelo or knee. No other complaints at this time. Pain is made worse with weightbearing. No other modifying factors. Related Data Home Medications Medication Instructions Recorded Confirmed tizanidine 2 mg PO HS #1 02/04/15 05/18/20 fludrocortisone 0.1 mg PO DAILY #90 tab 12/08/15 05/18/20 acetaminophen [Acetaminophen Extra 1,000 mg PO TID PRN PRN #180 tab 02/09/16 05/18/20 Strength] cholecalciferol (vitamin D3) 5,000 unit PO DAILY 02/09/16 05/18/20 glatiramer [Copaxone] 40 mg IM/SC . 3 X A WEEK 02/09/16 05/18/20 gabapentin 100 mg PO daily prn #60 cap 04/14/17 05/18/20 Glucagon Emergency Kit (human) 1 mg IJ PRN PRN #2 kit 09/18/17 05/18/20 scopolamine base [Transderm-Scop] 1 patch TRANSDERMAL ONCE #2 patch 11/10/17 05/18/20 ibuprofen 600 mg PO Q6H PRN #60 tab-cap 11/21/17 05/18/20 gabapentin 300 - 600 mg PO BID #270 tab-cap 01/19/18 05/18/20 amlodipine 2.5 mg tablet 5 mg PO QAM #90 tab 05/18/18 05/18/20 baclofen 10 mg tablet 10 mg PO BID PRN #60 tab 05/18/18 05/18/20 ondansetron 4 mg disintegrating 4 mg PO TID PRN #20 tab.rapdis 09/10/18 05/18/20 tablet prochlorperazine maleate 5 mg 5 mg PO BID-TID PRN #30 tab 09/13/18 05/18/20 tablet fluconazole 150 mg tablet 150 mg PO ONCE #1 tab-cap 11/28/18 05/18/20 metoclopramide HCl 10 mg tablet 10 mg PO Q6H PRN #20 tab 05/03/19 05/18/20 lisinopril 40 mg tablet 40 mg PO HS #90 tab 05/21/19 05/18/20 insulin lispro 100 unit/mL 1 sliding sc SC USEASDIRECTD #30 ml 05/27/19 05/18/20 subcutaneous solution blood sugar diagnostic #900 strip 04/03/20 05/18/20 blood-glucose meter #1 04/08/20 05/18/20 blood sugar diagnostic #900 04/10/20 05/18/20 Previous Rx's Medication Instructions Recorded acetaminophen [Acetaminophen Extra 1,000 mg PO TID PRN PRN #180 tab 02/09/16 Strength] gabapentin 100 mg PO daily prn #60 cap 04/14/17 scopolamine base [Transderm-Scop] 1 patch TRANSDERMAL ONCE #2 patch 11/10/17 ibuprofen 600 mg PO Q6H PRN #60 tab-cap 11/21/17 gabapentin 300 - 600 mg PO BID #270 tab-cap 01/19/18 amlodipine 2.5 mg tablet 5 mg PO QAM #90 tab 05/18/18 baclofen 10 mg tablet 10 mg PO BID PRN #60 tab 05/18/18 ondansetron 4 mg disintegrating 4 mg PO TID PRN #20 tab.rapdis 09/10/18 tablet prochlorperazine maleate 5 mg 5 mg PO BID-TID PRN #30 tab 09/13/18 tablet fluconazole 150 mg tablet 150 mg PO ONCE #1 tab-cap 11/28/18 metoclopramide HCl 10 mg tablet 10 mg PO Q6H PRN #20 tab 05/03/19 lisinopril 40 mg tablet 40 mg PO HS #90 tab 05/21/19 insulin lispro 100 unit/mL 1 sliding sc SC USEASDIRECTD #30 ml 05/27/19 subcutaneous solution blood sugar diagnostic #900 strip 04/03/20 blood-glucose meter #1 04/08/20 blood sugar diagnostic #900 04/10/20 Allergies Allergy/AdvReac Type Severity Reaction Status Date / Time sulfur dioxide Allergy Intermediate Skin Rash Verified 05/18/20 06:56 General Stated Complaint: Orthopedic ABDIAS: 4 Review of Systems All systems reviewed & are unremarkable except as noted in HPI and below PFSH Medical History Chronic kidney disease, unspecified DM type 1 (diabetes mellitus, type 1) Essential hypertension MS (multiple sclerosis) DX by Dr. Bolaños at [facility] Peripheral neuralgia diabetic; onset at age 12 Proliferative diabetic retinopathy 04/09/20 B/L Surgical History Extraction of cataract O.U. Open Carpal Tunnel release S/P laparoscopic appendectomy (~09/14/18) Trigger Finger release X 2 ULNAR RETRACTMENT Family History Mother , AGE 49 CMML (chronic myelomonocytic leukemia) Father Essential hypertension Sister No problems noted. Brother No problems noted. Brother No problems noted. Social History Smoking/Tobacco Use Status: Current-Occasional Tobacco Type: cigarettes Quit status: considering quitting Second Hand Exposure: Yes Smoking risk assessment performed?: Yes Alcohol Intake: never Drug use: Never Substance use type: does not use Caregiver/Support person: No Household members: significant other Housing: house Communication Needs: None Do you need help understanding health information?: Never current occupation: [employer] Pets and animals: Yes Pets and animals: cat(s), dog(s) and farm animals Sexually active: Yes Do you think of yourself as: straight/heterosexual Current gender identity: female What is your relationship status?: living with partner How often do you talk on the phone with friends or family?: three or more times per week How often do you get together with friends or relatives?: three or more times per week How often do you attend muslim or confucianism services?: decline to answer Do you belong to any clubs or organized social groups?: no Panel score (0-1 are the most socially isolated patients): 2 What type of physical activity do you participate in: none and other Details: Working/playing outside Duration: 30-45 minutes/day Frequency: daily Chioma/Druze: Mandaen Special chioma needs: No Seatbelt use: always Drive intox or ride w/intox pile driver operator helper: No Do you feel safe at home: Yes Do you feel safe in your relationship?: Yes Exam Narrative Exam Narrative: 1.Const: Well-nourished, Well-developed, appearing stated age 2.Eyes: PERRL, no conjunctival injection, and symmetrical lids. 3.ENT: Atraumatic external nose and ears. Moist MM. Neck: Symmetric, trachea midline, No thyromegaly. 4.CVS: +S1/S2, No murmurs or gallops. Peripheral pulses 2+ and equal in all extremities. Brisk capillary refill in all extremities. 5.RESP: Unlabored respiratory effort. Clear to auscultation bilaterally. No wheezes rales or rhonchi 6.GI: Soft, Nontender/Nondistended, No hepatosplenomegaly. No guarding or rebound. 7.MSK: Normocephalic/Atraumatic, Extremities w/o deformity. No cyanosis or clubbing, Normal movement of all extremities. Patient's right foot demonstrates pain and tenderness on palpation mid component of the third fourth and fifth metatarsal. No significant pain at the medial or lateral malleoli of the ankle. No pain or tenderness of the tibia-fibula. Good sensation throughout. Good dorsalis pedis and posterior tibial pulse bilaterally. 8.Skin: Warm, Dry. No rashes or lesions. 9.Neuro: hydro operator II-XII grossly intact. Sensation grossly intact, no focal neurologic deficits. 10.Psych: (AAO) x3. Appropriate mood and affect Course Vital Signs Vital signs: Vital Signs Temperature 36.8 C 05/18/20 06:49 Pulse 92 H 05/18/20 06:49 Respiratory Rate 16 05/18/20 06:49 Blood Pressure 160/87 H 05/18/20 06:49 Pulse Oximetry 99 05/18/20 06:49 Temperature 36.8 C 05/18/20 06:49 Temperature Source Skin 05/18/20 06:49 Pulse 92 H 05/18/20 06:49 Respiratory Rate 16 05/18/20 06:49 Respiratory Effort Non-Labored 05/18/20 06:49 Blood Pressure 160/87 H 05/18/20 06:49 Pulse Oximetry 99 05/18/20 06:49 Oxygen Delivery Method Room Air 05/18/20 06:49 Oxygen Flow Rate 0 05/18/20 06:49 Pain Level 8 05/18/20 06:49 Comment 05/18/20 06:49
--- NOTE | 2020-05-18 07:15 | DI.VRAD_ITS ---
PROCEDURE INFORMATION: Exam: XR Right Foot Complete Exam date and time: 05/18/2020 6:56 AM Age: 44 years old Clinical indication: Injury or trauma; Blunt trauma; Foot; Right; Injury date: 05/17/20; Injury details: Pain in 3rd - 5th metatarsal after fall TECHNIQUE: Imaging protocol: XR Right foot. Views: 3 or more views. COMPARISON: No relevant prior studies available. FINDINGS: Bones/joints: Normal. Soft tissues: Normal. IMPRESSION: No acute findings. Dictated and Authenticated by: Curtis Lowe MD. Ordering:BABAR Ken MD
[2020-05-18 07:37] VITALS: BP 145/91
--- NOTE | 2020-05-18 09:33 | W.ED.FU ---
Date of service: 05/18/20 Time of Service: 09:33 Follow Up Plan: Spoke with Dr. Nielson radiologist regarding foot x-ray, he noted a nondisplaced fracture in the base of the fifth metatarsal. Will attempt to call patient to relay this information. Patient was placed in a short walking boot and crutches and instructed on nonweightbearing for the next 2 to 3 days. Called and spoke with patient and relayed the results. Verbalized understanding and instructed to follow up in 1-2 weeks with ortho if needed.
== END 2020-05-18 07:30 | disposition home or self-care (01) ==
PROVIDERS: Emergency Provider Student in an Organized Health Care Education/Training Program; PCP Emergency Medicine
DX: S92.354A Nondisplaced fracture of fifth metatarsal bone, right foot, initial encounter for closed fracture (principal); W10.8XXA Fall (on) (from) other stairs and steps, initial encounter; E10.9 Type 1 diabetes mellitus without complications; G35 Multiple sclerosis; I12.9 Hypertensive chronic kidney disease with stage 1 through stage 4 chronic kidney disease, or unspecified chronic kidney disease; N18.9 Chronic kidney disease, unspecified
CPT/HCPCS: 28470; 73630

== ENCOUNTER 2020-08-17 02:34 | Outpatient (CLI) | payer OTHER, SELFPAY ==
--- NOTE | 2020-08-17 06:15 | DI.US_ITS ---
EXAM: US ABDOMEN CLINICAL HISTORY: chronic nausea,epigastric pain, r10.13 TECHNIQUE: Ultrasound of complete upper abdomen performed using standard protocol. COMPARISON: US US soft tissue extremity from 03/02/[address] ABDOMEN PELVIS W from 09/14/[address] ABDOMEN PELVIS W from 09/14/2018 FINDINGS: There is no ascites evident. LIVER: There are no hepatic lesions evident nor obvious dilatation of intrahepatic ducts. GALLBLADDER/BILIARY: There are no gallstones. No gallbladder wall edema nor pericholecystic fluid. The common hepatic duct isnot dilated, measuring 3-4mm at the level of raysa hepatis. PANCREAS: There is no evidence of pancreatic mass nor dilatation of the pancreatic duct. SPLEEN: The spleen is not enlarged and there are no intrasplenic lesions evident. KIDNEYS:Kidneys exhibit normal size with no evidence of solid mass, calculus, nor hydronephrosis. The re is a small 6-7 millimeters cyst in superior pole left kidney. ABDOMINAL AORTA: There is no evidence of abdominal aortic aneurysm. IVC: Normal diameter where visualized. IMPRESSION: 1. No evidence of cholelithiasis nor dilatation of the biliary tree. 2. No other significant ultrasound findings in the upper abdomen. 3. Small 6-7 millimeter benign cyst noted in superior pole of the left kidney. No other focal renal findings. 4. There is no ascites. DATA REPOSITORY:
== END 2020-08-17 02:54 ==
PROVIDERS: PCP Emergency Medicine; Visit Provider Emergency Medicine
DX: R10.13 Epigastric pain (principal); N28.1 Cyst of kidney, acquired
CPT/HCPCS: 76700

== ENCOUNTER 2021-03-18 02:11 | Outpatient (CLI) | payer OTHER, SELFPAY ==
--- NOTE | 2021-03-18 08:20 | DI.RAD_ITS ---
Exam(s) RF FLUORO <1HOUR NO SAVED IMAG EXAM: RF FLUORO <1HOUR NO SAVED IMAG CLINICAL HISTORY: left shoulder injection,BICEPS TENDINITIS LT SHOULDER,M75.22 TECHNIQUE: COMPARISON: No exams were available for comparison FINDINGS: IMPRESSION:
[2021-03-18] MEDS: methylPREDNISolone ACETATE 80 MG/ML VIAL IM (14:52)
[2021-03-18] MEDS: Omnipaque 300 MG/ML 10 ML BTL 1.5 ML IJ (14:53)
--- NOTE | 2021-03-18 14:53 | W.PROCNOTE ---
Date of service: 03/18/21 Time of Service: 14:53 Procedure Note Date of procedure: 03/18/21 Procedure: Left Shoulder Injection Surgeon/Proceduralist/Physician: Kirk Langford Procedure Diagnosis: Left Shoulder Pain Procedure Indications: Na has had persistent pain of the LEFT shoulder. She has had previous success with intra-articular injections of the left shoulder. Thus, an injection under fluoroscopy was recommended. I had discussed the risks of the procedure and the patient elected to proceed. Procedure Description: Na was greeted in the flouroscopy room. The correct side was identified and the consent was reviewed with the patient and signed. The patient was then placed in the supine position on the fluoroscopy table. The LEFT shoulder was then prepped with Chloraprep. The anterior injection starting point was identiifed by bony landmarks and fluoroscopy. The skin and soft tissue in the tract of the injection was anesthetized with 1% Lidocaine. A spinal needle was then inserted deep into the shoulder joint at the level of the recess between the glenoid and superior humeral head. A small amount of Omnipaque solution was injected to confirm intraarticular placement. Once confirmed, the shoulder was injected with 4cc of 0.5% Bupivicaine and 80mg of Depo-Medrol. A bandaid was placed on the injection site.
[2021-03-18] MEDS: Bupivacaine 0.5% Pres-Free 10 ML VIAL 5 ML IJ (14:54)
== END 2021-03-18 02:31 ==
LOC: DI 02:12
PROVIDERS: PCP Emergency Medicine; Visit Provider Student in an Organized Health Care Education/Training Program
DX: M25.512 Pain in left shoulder (principal)
CPT/HCPCS: 20610; 76000; J1040

== ENCOUNTER 2021-04-26 14:52 | Outpatient (CLI) | payer OTHER, SELFPAY ==
--- NOTE | 2021-04-26 14:45 | DI.RAD_ITS ---
Exam(s) XR WRIST LT COMPLETE EXAM: XR WRIST LT COMPLETE CLINICAL HISTORY: L thumb/wrist pain. TECHNIQUE: 2D digital imaging was performed. COMPARISON: No exams were available for comparison FINDINGS: There is no evidence of fracture or carpal dislocation. Scapholunate distance is normal. Bone densi ty normal. No osseous lesions nor erosions. There is no significant ulnar variance. IMPRESSION: No significant radiographic findings DATA REPOSITORY: RADIATION DOSE DELIVERED:
== END 2021-04-26 14:53 | disposition home or self-care (01) ==
LOC: DIORS 14:52
PROVIDERS: PCP Emergency Medicine; Referring Provider Emergency Medicine; Visit Provider Physician Assistant
DX: M25.532 Pain in left wrist (principal)
CPT/HCPCS: 73110

== ENCOUNTER 2021-08-09 13:53 | Emergency (ER) | payer OTHER, SELFPAY ==
[2021-08-09 14:12] VITALS: BP 139/85; PULSE 95; RESP 18; TEMP 36.6; O2SAT 100
--- NOTE | 2021-08-09 14:30 | DI.RAD_ITS ---
Exam(s) XR ABD FLAT UPRIGHT PA CHEST CLINICAL HISTORY: LUQ abd pain, HX constipation. COMPARISON: No exams were available for comparison FINDINGS: LUNGS: Clear. No pleural abnormality seen. HEART: Normal. MEDIASTINUM: Normal. BOWEL GAS PATTERN: Increased stool seen right side of the colon and rectum. No small bowel dilatatio n or gastric distension. ABNORMAL COLLECTIONS OF AIR: No abnormal collection of air. No pneumoperitoneum. CALCIFICATIONS: None. No radiopaque renal, ureteral, or bladder calcification. OTHER FINDINGS: None. IMPRESSION: 1. Nonobstructive bowel gas pattern. 2. No acute pulmonary findings.
--- NOTE | 2021-08-09 14:30 | W.ED.GENAD ---
Discharge Plan Disposition Patient Disposition: HOME Condition: Stable Discharge Details Clinical Impression: Abdominal pain, Hypoglycemia Primary Care Provider: Jasson Avila ED Provider: Anaya Chan Home Meds and New Rx's Prescriptions: Continued ondansetron HCl [Zofran] 4 mg tablet 4 mg PO Q8H PRN (Reason: nausea and vomiting) Qty: 20 2RF baclofen 10 mg tablet 10 mg PO BID PRN (Reason: muscle spasticity) Qty: 60 3RF tizanidine 2 MG tablet 2 mg PO HS Qty: 1 0RF fludrocortisone 0.1 MG tablet 0.1 mg PO DAILY Qty: 90 3RF gabapentin 100 MG capsule 100 mg PO daily prn Qty: 60 3RF Glucagon Emergency Kit (human) 1 MG kit 1 mg IJ PRN PRNQty: 2 6RF gabapentin 300 MG capsule 300 - 600 mg PO BID Qty: 270 3RF Rx Instructions: one tab a.m., two tabs p.m. prochlorperazine maleate [Compazine] 5 mg tablet 5 mg PO BID-TID PRN (Reason: nausea and vomiting) Qty: 30 0RF metoclopramide HCl [Reglan] 10 mg tablet 10 mg PO Q6H PRN (Reason: nausea and vomiting) Qty: 20 0RF insulin lispro [Humalog U-100 Insulin] 100 unit/mL solution 1 sliding sc SC USEASDIRECTD Qty: 30 2RF Rx Instructions: uses diabetic pump (DME) blood sugar diagnostic Strip 1 ea Miscellaneous 10x daily Qty: 900 12RF Rx Instructions: E10.65 on insulin pump (DME) blood-glucose meter [OneTouch Verio Meter] Mis See Rx Instructions .ROUTE .MEDSUPPLY Qty: 1 0RF Rx Instructions: As directed scopolamine base [Transderm-Scop] 1 mg over 3 days patch 3 day 1 patch Transdermal ONCE Qty: 4 1RF Rx Instructions: apply 4 hours prior to sailing (DME) Contour Test Strips Strip See Dose Instructions .ROUTE .MEDSUPPLY Qty: 900 8RF Dose Instruction: As directed Rx Instructions: test 10x per day (DME) Precision Q-I-D Test Strip See Rx Instructions .ROUTE .MEDSUPPLY Qty: 1000 6RF Rx Instructions: Insulin pump. Test 10x daily cholecalciferol (vitamin D3) 5,000 UNIT capsule 5,000 unit PO DAILY 0RF glatiramer [Copaxone] 40 MG/ML syringe 40 mg IM/SC . 3 X A WEEK 0RF acetaminophen [Acetaminophen Extra Strength] 500 MG tablet 1,000 mg PO TID PRN PRNQty: 180 0RF ibuprofen 600 MG tablet 600 mg PO Q6H PRN Qty: 60 2RF Discharge Instructions Instructions: Hypoglycemia in a Person with Diabetes (ED), Abdominal Pain (ED) Additional Instructions: CT shows Some renal cysts which may be causing your pain, however these are probably chronic. You do have moderate colonic stool. Constipation. Follow up with primary care provider in 3-5 days. Return to ED sooner if any worsening or concerns. Increase oral fluids. Please take Tylenol with food every 4-6 hours as needed for pain and swelling. Stand Alone Forms: Work Release Referrals: Jasson Avila DO [Primary Care Provider] - 3 days Discharge Data Discharge Date/Time-TO BE ENTERED AT DEPARTURE: 08/09/21 18:45 Medical Decision Making 45-year-old female presents to the ER with chief complaint of Covid abdominal/rib tenderness which began today. She reports it as sharp and pinpoint like stabbing . She denies any radiation no nausea vomiting diarrhea no heavy lifting or falls. She does have a past medical history of type 1 diabetes mellitus, chronic constipation, appendectomy, MS, hypertension, anemia. She also notes that when she got here her blood glucose monitor was reading 109 it is now down to 71. She did take a glucose tablet upon arrival the department and is sipping on a cola. She reports last bowel movement was small and hard. 1529: Critical glucose value report from lab glucose is 42. 50% dextrose 25 g IV push ordered. Will repeat BGL approximately 30 minutes. 1533: Discussed with patient results of BMP she checked her BGL with her own personal glucometer which read 58. We will go ahead with the D50. She reports that she took a unit of Humalog prior to arrival. 1600: Repeat BGl per RN report 163 FINDINGS: LUNGS: Clear. No pleural abnormality seen. HEART: Normal. MEDIASTINUM: Normal. BOWEL GAS PATTERN: Increased stool seen right side of the colon and rectum. No small bowel dilatation or gastric distension. ABNORMAL COLLECTIONS OF AIR: No abnormal collection of air. No pneumoperitoneum. CALCIFICATIONS: None. No radiopaque renal, ureteral, or bladder calcification. OTHER FINDINGS: None. IMPRESSION: 1. Nonobstructive bowel gas pattern. 2. No acute pulmonary findings. 1638: Discussed lab and x-ray findings with patient who verbalized understanding. She appears upset and tearful and is requesting to discharge home however she does agree to get a CT scan to further differentiate reasons for her pain. She reports being concerned because almost dinnertime. CT Abd/Pelvis: FINDINGS: Lungs: Minimal atelectasis in the right middle lobe. Otherwise, the visualized lung bases are clear. Diaphragm: Small hiatal hernia. Liver: Punctate cyst versus hemangioma at the dome of the liver. Gallbladder and bile ducts: Normal. No calcified stones. No ductal dilation. Pancreas: Normal. No ductal dilation. Spleen: Normal. No splenomegaly. Adrenal glands: Normal. No mass. Kidneys and ureters: Simple subcentimeter left upper pole and bilateral lower pole renal cortical cysts. Stomach and bowel: There is moderate colonic stool burden. No obstruction. No mucosal thickening. No mucosal enhancement or wall thickening. Appendix: Appendectomy Intraperitoneal space: Unremarkable. No free air. No significant fluid collection. Vasculature: Unremarkable. No abdominal aortic aneurysm. Lymph nodes: Unremarkable. No enlarged lymph nodes. Urinary bladder: Diffuse urinary bladder wall thickening. Reproductive: Anteverted but otherwise normal uterus. Left ovarian cyst measuring 1.5 cm. Right ovarian cyst measuring 2.2 cm. Bones/joints: Unremarkable. No acute fracture. Soft tissues: Chronic bilateral lower back subcutaneous fat stranding with new appearance of gas pockets in the left sided fat stranding. Correlate with injection of medications. This is best seen on series 4, image 44. IMPRESSION: 1. Diffuse urinary bladder wall thickening. Correlate with urinalysis. 2. Bilateral simple ovarian cysts. Consider follow-up pelvic ultrasound to further evaluate, if clinically indicated. 3. Chronic subcutaneous fat stranding in the lower back bilaterally. Appearance of gas in the left focus of fat stranding. Correlate with injection of medications. 4. Moderate colonic stool burden which may correlate with clinical symptoms of constipation. Thank you for allowing us to participate in the care of your patient. Dictated and Authenticated by: Zoya Norman MD Discussed CT results and verbalized understanding. Instructed to follow-up PCP. This text was generated using [employer] system, please disregard any oddities of phrase or misspellings. HPI General Mode of arrival: ambulatory. Date/Time Provider Initiated Documentation: 08/09/21 13:54. Limitations to Documentation: no limitations. Information obtained by: patient, RN notes reviewed and old records reviewed. HPI Narrative: 45-year-old female presents to the ER with chief complaint of Covid abdominal/rib tenderness which began today. She reports it as sharp and pinpoint like stabbing . She denies any radiation no nausea vomiting diarrhea no heavy lifting or falls. She does have a past medical history of type 1 diabetes mellitus, chronic constipation, appendectomy, MS, hypertension, anemia. She also notes that when she got here her blood glucose monitor was reading 109 it is now down to 71. She did take a glucose tablet upon arrival the department and is sipping on a cola. She reports last bowel movement was small and hard. Related Data Home Medications Medication Instructions Recorded Confirmed tizanidine 2 mg tablet 2 mg PO HS #1 02/04/15 08/09/21 fludrocortisone 0.1 mg tablet 0.1 mg PO DAILY #90 tab 12/08/15 08/09/21 acetaminophen 500 mg tablet 1,000 mg PO TID PRN PRN #180 tab 02/09/16 08/09/21 (Acetaminophen Extra Strength) cholecalciferol (vitamin D3) 125 5,000 unit PO DAILY 02/09/16 08/09/21 mcg (5,000 unit) capsule glatiramer 40 mg/mL subcutaneous 40 mg IM/SC . 3 X A WEEK 02/09/16 08/09/21 syringe (Copaxone) gabapentin 100 mg capsule 100 mg PO daily prn #60 cap 04/14/17 08/09/21 glucagon (human recombinant) 1 mg 1 mg IJ PRN PRN #2 kit 09/18/17 08/09/21 injection kit (Glucagon Emergency Kit (human-recomb)) ibuprofen 600 mg tablet 600 mg PO Q6H PRN #60 tab-cap 11/21/17 08/09/21 gabapentin 300 mg capsule 300 - 600 mg PO BID #270 tab-cap 01/19/18 08/09/21 baclofen 10 mg tablet 10 mg PO BID PRN #60 tab 05/18/18 08/09/21 prochlorperazine maleate 5 mg 5 mg PO BID-TID PRN #30 tab 09/13/18 08/09/21 tablet (Compazine) metoclopramide HCl 10 mg tablet 10 mg PO Q6H PRN #20 tab 05/03/19 08/09/21 (Reglan) insulin lispro 100 unit/mL 1 sliding sc SC USEASDIRECTD #30 ml 05/27/19 08/09/21 subcutaneous solution (Humalog U-100 Insulin) blood sugar diagnostic #900 strip 04/03/20 08/09/21 blood-glucose meter (OneTouch #1 04/08/20 08/09/21 Verio Meter) ondansetron HCl 4 mg tablet 4 mg PO Q8H PRN #20 tab 08/05/20 08/09/21 (Zofran) scopolamine base 1 mg over 3 days 1 patch TRANSDERMAL ONCE #4 ea 11/16/20 08/09/21 transdermal patch (Transderm-Scop 1.5 mg transdermal patch () Precision Q-I-D Test (blood sugar #1000 ea NS 04/15/21 08/09/21 diagnostic) blood sugar diagnostic (Contour #900 04/15/21 08/09/21 Test Strips) Previous Rx's Medication Instructions Recorded acetaminophen 500 mg tablet 1,000 mg PO TID PRN PRN #180 tab 02/09/16 (Acetaminophen Extra Strength) gabapentin 100 mg capsule 100 mg PO daily prn #60 cap 04/14/17 ibuprofen 600 mg tablet 600 mg PO Q6H PRN #60 tab-cap 11/21/17 gabapentin 300 mg capsule 300 - 600 mg PO BID #270 tab-cap 01/19/18 baclofen 10 mg tablet 10 mg PO BID PRN #60 tab 05/18/18 prochlorperazine maleate 5 mg 5 mg PO BID-TID PRN #30 tab 09/13/18 tablet (Compazine) metoclopramide HCl 10 mg tablet 10 mg PO Q6H PRN #20 tab 05/03/19 (Reglan) insulin lispro 100 unit/mL 1 sliding sc SC USEASDIRECTD #30 ml 05/27/19 subcutaneous solution (Humalog U-100 Insulin) blood sugar diagnostic #900 strip 04/03/20 blood-glucose meter (OneTouch #1 04/08/20 Verio Meter) ondansetron HCl 4 mg tablet 4 mg PO Q8H PRN #20 tab 08/05/20 (Zofran) scopolamine base 1 mg over 3 days 1 patch TRANSDERMAL ONCE #4 ea 11/16/20 transdermal patch (Transderm-Scop 1.5 mg transdermal patch () Precision Q-I-D Test (blood sugar #1000 ea NS 04/15/21 diagnostic) blood sugar diagnostic (Contour #900 04/15/21 Test Strips) Allergies Allergy/AdvReac Type Severity Reaction Status Date / Time sulfur dioxide Allergy Intermediate Skin Rash Verified 08/09/21 14:18 General Stated Complaint: Abd Prob ABDIAS: 3 Review of Systems All systems reviewed & are unremarkable except as noted in HPI and below Gastrointestinal Gastrointestinal: Reports abdominal pain and Reports constipation PFSH All Active Problems (Updated 08/09/21 @ 18:38 by Anaya Chan) Abdominal pain (Acute) Hypoglycemia (Acute) Chronic constipation (Acute) Osteoarthritis of carpometacarpal (CMC) joint of left thumb (Acute) Chronic ear pain (Acute) Nausea (Acute) Proliferative diabetic retinopathy (Acute) 04/09/20 B/L Arthralgia of left temporomandibular joint (Acute) Numbness of right hand (Acute) Otalgia of right ear (Acute) Allergic rhinitis (Acute) DM type 1 (diabetes mellitus, type 1) (Chronic) History of cataract removal with insertion of prosthetic lens (Acute) History of vitrectomy (Acute) Acute appendicitis (Acute) Dupuytren's disease of palm of right hand (Acute) Synovial cyst of popliteal space [Johnson], right knee (Acute) MS (multiple sclerosis) (Chronic) DX by Dr. Bolaños at [facility] Vitreous hemorrhage (Acute 04/27/02) O.D. Trigger finger, right little finger (Acute 08/31/16) Trigger finger, left middle finger (Acute 02/27/17) Psoas tendinitis, left hip (Acute 02/27/17) Peripheral neuralgia (Chronic) diabetic; onset at age 12 Patellofemoral syndrome, left (Acute 07/24/17) Essential hypertension (Chronic) Cubital tunnel syndrome on right (Acute 04/07/16) Chronic kidney disease, unspecified (Chronic) Carpal tunnel syndrome of right wrist (Acute 04/07/16) Biceps tendinitis of left shoulder (Acute 06/26/17) Anemia (Acute) ASCUS of cervix with negative high risk HPV (Acute 02/22/17) Surgical History Extraction of cataract O.U. Open Carpal Tunnel release S/P laparoscopic appendectomy (~09/14/18) Trigger Finger release X 2 ULNAR RETRACTMENT Family History Mother , AGE 49 CMML (chronic myelomonocytic leukemia) Father Essential hypertension Sister No problems noted. Brother No problems noted. Brother No problems noted. 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 Pets and animals: Yes Pets and animals: cat(s), dog(s) and farm animals Sexually active: Yes Do you think of yourself as: straight/heterosexual Current gender identity: female What is your relationship status?: living with partner How often do you talk on the phone with friends or family?: three or more times per week How often do you get together with friends or relatives?: three or more times per week How often do you attend christian or moravian services?: decline to answer Do you belong to any clubs or organized social groups?: no Panel score (0-1 are the most socially isolated patients): 2 What type of physical activity do you participate in: none and other Details: Working/playing outside Duration: 30-45 minutes/day Frequency: daily Chioma/Pentecostal: Jewish Special chioma needs: No Seatbelt use: always Drive intox or ride w/intox motorcycle 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 Appears stated age. Normal body habitus. Head: Normocephalic, no trauma. Eyes: Pupils PERRL, Red reflex noted, EOM's intact. Eyelids symmetrical without lesions, discharge, or swelling. ENT: Bilateral TM's WNL, External ear normal to inspection, no mastoid TTP, swelling, or erythema, Nasal turbinates WNL, no nasal discharge. Normal dentition, Posterior pharynx WNL, no exudate. Chest: RRR, Normal S1, S2, distal pulses intact. Resp: Lungs clear to auscultation bilaterally, no wheezes, rales, or rhonchi. Abdomen: Soft, non-distended, Normoactive bowel sounds all 4 quads. Tenderness with palpation to the left upper quadrant. Musculoskeletal: Normal gait, 5/5 strength to all four extremities. Skin: No suspicious rashes or lesions. Capillary refill less than 2 sec. Neurologic: Cranial nerves II-XII intact. Alert and oriented x 3. Motor: No deficits noted. Sensory: Intact bilaterally all 4 extremities. Reflexes: DTR's intact bilaterally.. Hematologic/Lymphatic: No ecchymosis, no lymphadenopathy. Course Vital Signs Vital signs: Vital Signs Temperature 36.6 C 08/09/21 14:12 Pulse 95 H 08/09/21 14:12 Respiratory Rate 18 08/09/21 14:12 Blood Pressure 139/85 08/09/21 14:12 Pulse Oximetry 100 08/09/21 14:12 Temperature 36.6 C 08/09/21 14:12 Temperature Source Temporal Artery Scan 08/09/21 14:12 Pulse 95 H 08/09/21 14:12 Respiratory Rate 18 08/09/21 14:12 Respiratory Effort Non-Labored 08/09/21 14:17 Blood Pressure 139/85 08/09/21 14:12 Blood Pressure Position Sitting 08/09/21 14:12 Pulse Oximetry 100 08/09/21 14:12 Oxygen Delivery Method Room Air 08/09/21 14:12 Oxygen Flow Rate 0 08/09/21 14:12 Pain Level 6 08/09/21 14:12
[2021-08-09 15:06] LABS: Abs Immature Grans 0.02 10^3/uL (0.0-0.06); Absolute Basophil Count 0.02 10^3/uL (0.0-0.2); Absolute Eosinophil Count 0.17 10^3/uL (0.0-0.7); Absolute Lymphocyte Count 1.83 10^3/uL (1.2-3.4); Absolute Monocyte Count 0.41 10^3/uL (0.1-0.8); Absolute Neutrophil Count 5.17 10^3/uL (1.2-6.7); Basophils % 0.3; Eosinophils % 2.2; HCT 38.5 % (36.0-46.0); HGB 13.1 g/dL (11.2-15.7); Immature Grans % 0.3; MCH 32.5 pg (27.0-33.0); MCV 95.5 fL (80-95); MPV 10.9 fL (8.0-11.0); Monocytes % 5.4; Neutrophils % 67.8; Nucleated RBC 0 %; Platelet Count 177 10^3/uL (130-400); RBC 4.03 10^6/uL (3.93-5.22); RDW-SD 41.7 fL; WBC 7.62 10^3/uL (4.4-10.8)
[2021-08-09 15:20] LABS: ALT 22 U/L (14-59); AST 17 U/L (15-37); Alkaline Phosphatase 72 U/L (46-116); Anion Gap 6.1 mmol/L (3-11); BUN 12 mg/dL (7-18); Bilirubin, Total 0.3 mg/dL (0.2-1.0); CO2 27.9 mmol/L (21.0-32.0); CREATININE 1.1 mg/dL (0.55-1.02); Calcium 9.1 mg/dL (8.5-10.1); Chloride 103 mmol/L (98-107); Estimated GFR 53.24 (mL/min/1.73m2); Lipase 24 U/L (73-393); Magnesium 1.8 mg/dL (1.8-2.4); Potassium 3.6 mmol/L (3.5-5.1); Sodium 137 mmol/L (136-145); Total Protein 7.3 g/dL (6.4-8.2)
[2021-08-09 15:28] LABS: Glucose 42 mg/dL (74-106)
[2021-08-09 15:32] LABS: Bilirubin Negative (Negative); Blood Negative (Negative); Clarity Clear (Clear); Glucose Negative (Negative); Ketones Negative (Negative); Leukocyte Esterase Negative (Negative); Nitrite Negative (Negative); Urobilinogen 0.2 EU/dL (Up TO 0.2); pH 5.5 (5-8)
[2021-08-09] MEDS: Dextrose 50%-Water 25 GM/50 ML SYR IVP (15:34)
--- NOTE | 2021-08-09 15:37 | NUR.NOTE ---
Nursing Note:Pt reports blood glucose 58 per her monitor, provider aware, medicateed as ordered w/dextrose, cont. to monitor.
--- NOTE | 2021-08-09 16:12 | NUR.NOTE ---
Nursing Note: F/U blood sugar 165, provider notified, cont. to monitor.
[2021-08-09 16:45] VITALS: BP 129/79; PULSE 88
--- NOTE | 2021-08-09 16:45 | DI.CT_ITS ---
Exam(s) CT ABDOMEN PELVIS W EXAM: CT ABDOMEN PELVIS W CLINICAL HISTORY: LUQ abd Pain. TECHNIQUE: Imaging Protocol: Axial computed tomography images with coronal and sagittal reformatted images were created and reviewed CONTRAST MATERIAL: Intravenous: Omnipaque 350 Contrast volume:100 ml Oral: / no COMPARISON: CT CT ABDOMEN PELVIS W from 09/14/2018 FINDINGS: ABDOMEN: Lung Bases: Minimal right basilar atelectasis.. Liver: Normal density. No measurable mass. Gallbladder and biliary tract: No radiodense calculus or dilation. Pancreas: Normal density, no abnormal calcifications or inflammatory process. Spleen: Normal. Kidneys: Normal size, contour and axis. No radiodense stones or obstructive uropathy. No masses seen. Adrenal glands: No masses seen. Abdominal Aorta: Abdominal portion non-dilated. Soft tissues: Areas of increased density in the posterior subcutaneous fat bilaterally, likely inject ion sites. Correlate clinically. PELVIS: Bladder: Question of mild wall thickening versus under distension. Wall thickening. No calculi.No fo judi mass. Bowel: Large quantity of fecal material in the ascending, transverse colon and rectum.. No obstructi on or bowel wall thickening. Suture material base of cecum consistent prior appendectomy. Peritoneal cavity: No ascites, collection or mesenteric inflammatory response. Bones: Within normal limits for age. Reproductive organs: Uterus unremarkable. Ovaries not well visualized due to lack of intra-abdominal fat and adjacent non-opacified bowel loops. Lymph nodes: Unremarkable. Impression: Large quantity of stool. No evidence of obstruction or inflammation. Mild bladder wall thickening. Correlate clinically. RADIATION DOSE DELIVERED: 892.43mGy.cm Total DLP DATA REPOSITORY: All CT scans at this facility are submitted to the National Radiology Data Registry (NRDR) Dose Index Registry (DIR) with the [employer] (ACR). RADIATION OPTIMIZATION: All CT scans at this facility use at least one of these dose optimization te chniques: automated exposure control; mA and/or kV adjustment per patient size (includes targeted exa ms where dose is matched to clinical indication); or iterative reconstruction.
[2021-08-09 16:47] VITALS: TEMP 36.6; O2SAT 100
[2021-08-09] MEDS: Omnipaque 350 MG/ML 100 ML BTL IJ (17:59)
[2021-08-09 18:07] VITALS: BP 141/75; PULSE 78; RESP 18; TEMP 36.5; O2SAT 96
--- NOTE | 2021-08-09 18:08 | NUR.NOTE ---
Nursing Note:Pt blood sugar 78 on her monitor, request & recieve crackers w/PB & cola
--- NOTE | 2021-08-09 18:39 | DI.VRAD_ITS ---
PROCEDURE INFORMATION: Exam: CT Abdomen And Pelvis With Contrast Exam date and time: 08/09/2021 5:00 PM Age: 45 years old Clinical indication: Abdominal pain; Localized; Left lower quadrant (llq); Patient HX: PT complains of left lower pelvic pain TECHNIQUE: Imaging protocol: Computed tomography of the abdomen and pelvis with contrast. Radiation optimization: All CT scans at this facility use at least one of these dose optimization techniques: automated exposure control; mA and/or kV adjustment per patient size (includes targeted exams where dose is matched to clinical indication); or iterative reconstruction. Contrast material: OMNI 350; Contrast volume: 100 ml; Contrast route: INTRAVENOUS (IV); COMPARISON: CT ABDOMEN PELVIS W 09/14/2018 8:11 AM FINDINGS: Lungs: Minimal atelectasis in the right middle lobe. Otherwise, the visualized lung bases are clear. Diaphragm: Small hiatal hernia. Liver: Punctate cyst versus hemangioma at the dome of the liver. Gallbladder and bile ducts: Normal. No calcified stones. No ductal dilation. Pancreas: Normal. No ductal dilation. Spleen: Normal. No splenomegaly. Adrenal glands: Normal. No mass. Kidneys and ureters: Simple subcentimeter left upper pole and bilateral lower pole renal cortical cysts. Stomach and bowel: There is moderate colonic stool burden. No obstruction. No mucosal thickening. No mucosal enhancement or wall thickening. Appendix: Appendectomy. Intraperitoneal space: Unremarkable. No free air. No significant fluid collection. Vasculature: Unremarkable. No abdominal aortic aneurysm. Lymph nodes: Unremarkable. No enlarged lymph nodes. Urinary bladder: Diffuse urinary bladder wall thickening. Reproductive: Anteverted but otherwise normal uterus. Left ovarian cyst measuring 1.5 cm. Right ovarian cyst measuring 2.2 cm. Bones/joints: Unremarkable. No acute fracture. Soft tissues: Chronic bilateral lower back subcutaneous fat stranding with new appearance of gas pockets in the left sided fat stranding. Correlate with injection of medications. This is best seen on series 4, image 44. IMPRESSION: 1. Diffuse urinary bladder wall thickening. Correlate with urinalysis. 2. Bilateral simple ovarian cysts. Consider follow-up pelvic ultrasound to further evaluate, if clinically indicated. 3. Chronic subcutaneous fat stranding in the lower back bilaterally. Appearance of gas in the left focus of fat stranding. Correlate with injection of medications. 4. Moderate colonic stool burden which may correlate with clinical symptoms of constipation. Dictated and Authenticated by: Zoya Norman MD. Ordering:LYSSA Julien MD
[2021-08-09 18:47] VITALS: PULSE 91; RESP 16; TEMP 36.5; O2SAT 98
== END 2021-08-09 18:45 | disposition home or self-care (01) ==
PROVIDERS: Emergency Provider Registered Nurse Emergency; PCP Emergency Medicine
DX: R10.13 Epigastric pain (principal); R10.12 Left upper quadrant pain; N28.1 Cyst of kidney, acquired; E10.9 Type 1 diabetes mellitus without complications
CPT/HCPCS: 36415; 36416; 80053; 82962; 83690; 99285; 74022; 74177; 81003; 83735; 85025; 99284; J3490

== ENCOUNTER 2021-08-18 02:30 | Outpatient (CLI) | payer OTHER, SELFPAY ==
[2021-08-18 07:52] LABS: Hemoglobin A1C 6.3 % (<5.7)
[2021-08-18 08:06] LABS: COMMENT (LAB VIEW ONLY) 123.91 mg/dL; Microalb ug/mg Crea 48.5 ug/mg Cr
[2021-08-18 08:22] LABS: Anion Gap 6.8 mmol/L (3-11); BUN 16 mg/dL (7-18); CO2 28.2 mmol/L (21.0-32.0); CREATININE 1.2 mg/dL (0.55-1.02); Calcium 8.7 mg/dL (8.5-10.1); Chloride 102 mmol/L (98-107); Estimated GFR 48.15 (mL/min/1.73m2); Glucose 108 mg/dL (74-106); Potassium 4.3 mmol/L (3.5-5.1); Sodium 137 mmol/L (136-145)
== END 2021-08-18 02:31 | disposition home or self-care (01) ==
LOC: LBO 02:30
PROVIDERS: PCP Family Medicine; Visit Provider Emergency Medicine
DX: E10.9 Type 1 diabetes mellitus without complications (principal); I10 Essential (primary) hypertension
CPT/HCPCS: 36415; 80048; 82043; 82570; 83036

== ENCOUNTER 2021-08-27 01:56 | Outpatient (CLI) | payer OTHER, SELFPAY ==
[2021-08-27 11:30] LABS: Source Nasal/Nares
[2021-08-27 14:07] LABS: COVID-19 PCR Negative (Negative)
== END 2021-08-27 01:57 | disposition home or self-care (01) ==
PROVIDERS: PCP Family Medicine; Visit Provider Surgery
DX: Z20.822 Contact with and (suspected) exposure to COVID-19 (principal)
CPT/HCPCS: 87635

== ENCOUNTER 2021-08-30 06:40 | Day surgery (SDC) | payer OTHER, SELFPAY ==
--- NOTE | 2021-08-30 06:34 | W.COLOREPORT ---
Colonoscopy Report Date of procedure: 08/30/21 Pre-op diagnosis general: Colon Cancer Screening Post-op diagnosis procedure note: same Procedure: Colonoscopy Surgeon: Rica Montalvo Anesthesia Type: General LMA/ETT Estimated blood loss (mL): 0 Pathology: none sent Complications: None Disposition: same day Indications: Na is a pleasant 45-year-old female who is here to discuss her first screening colonoscopy.? She also has a history of chronic constipation.? She only has a bowel movement about every 3 days.? She already uses Metamucil, a laxative and glycerin suppositories as needed.? Differential includes IBS constipation versus an obstruction.? I doubt that this is an obstruction.? We did discuss a 2-day prep to make sure that her colon is clean for the colonoscopy.? If the colonoscopy is normal, as I suspect then she may benefit from a medication like Linzess to help with her constipation.? We discussed the colonoscopy in detail as well as its risks and benefits.? We reviewed the 2-day prep.? The patient's questions were answered and she wished to proceed. Risks, benefits and complications have been reviewed. Complications include but are not limited to bleeding, pain, perforation, missed small lesion/polyp, sore throat, aspiration and adverse reaction to the medications. Questions were entertained and answered to their satisfaction and they wished to proceed. No guarantees were given or implied. Colonoscopy under sedation Prep: Miralax/Dulcolax Procedure Start Time: 08:36 Procedure End Time: 08:53 Retraction Time: 10 minutes Findings: Normal colon Procedure Description: After informed consent was obtained the patient was taken to the procedure room and placed in a left decubitous position. Monitors were applied and a time out was done. The patients name, date of , procedure, allergies to medications and metal in their body was reviewed. The patient was then sedated. Once sedated and comfortable a rectal exam was done. External exam was normal. Internal exam revealed a normal sphincter tone and no palpable masses. The scope was then introduced and retro-flexed. No internal hemorrhoids, polyps or masses were identified on retro-flexion. The scope was then advanced to the cecum without difficulty. The ileocecal vlave and appendiceal orifice were identified. The prep was good. The scope was then slowly retracted over 10 minutes back into the rectum. There were no Polyps. There was no diverticulosis noted. The scope was removed and the patient was woken up and taken back to Same day surgery in stable condition. The patient tolerated the procedure well and there were no immediate complications. Follow up: The patient should follow up in 10 years unless they develop changes in bowel habits or other new gastrointestinal complaints.
--- NOTE | 2021-08-30 06:35 | W.PM.DSUDISC ---
Discharge Plan Disposition Patient Disposition: HOME Condition: Good Discharge Details Reason For Visit: Colonoscopy Attending Provider: Rica Montalvo Primary Care Provider: Anabelle Medina Home Meds and New Rx's Prescriptions: Continued ondansetron HCl [Zofran] 4 mg tablet 4 mg PO Q8H PRN (Reason: nausea and vomiting) Qty: 20 2RF baclofen 10 mg tablet 10 mg PO BID PRN (Reason: muscle spasticity) Qty: 60 3RF atorvastatin 10 mg tablet 10 mg PO DAILY 0RF bisacodyl [Dulcolax (bisacodyl)] 5 mg tablet,delayed release (DR/EC) 5 mg PO ONCE Qty: 4 0RF Rx Instructions: Take as directed for your colonoscopy magnesium citrate Solution 300 ml PO ONCE Qty: 296 0RF Rx Instructions: Take 2 days before your colonoscopy as instructed tizanidine 2 MG tablet 2 mg PO HS Qty: 1 0RF fludrocortisone 0.1 MG tablet 0.1 mg PO DAILY Qty: 90 3RF gabapentin 100 MG capsule 100 mg PO daily prn Qty: 60 3RF Glucagon Emergency Kit (human) 1 MG kit 1 mg IJ PRN PRNQty: 2 6RF gabapentin 300 MG capsule 300 - 600 mg PO BID Qty: 270 3RF Rx Instructions: one tab a.m., two tabs p.m. prochlorperazine maleate [Compazine] 5 mg tablet 5 mg PO BID-TID PRN (Reason: nausea and vomiting) Qty: 30 0RF insulin lispro [Humalog U-100 Insulin] 100 unit/mL solution 1 sliding sc SC USEASDIRECTD Qty: 30 2RF Label Comments: pt. has pump in place Rx Instructions: uses diabetic pump (DME) blood sugar diagnostic Strip 1 ea Miscellaneous 10x daily Qty: 900 12RF Rx Instructions: E10.65 on insulin pump (DME) blood-glucose meter [OneTouch Verio Meter] Misc See Rx Instructions .ROUTE .MEDSUPPLY Qty: 1 0RF Label Comments: pt has insulin pump in place in L abdomen, monitor in L upper arm Rx Instructions: As directed scopolamine base [Transderm-Scop] 1 mg over 3 days patch 3 day 1 patch Transdermal ONCE Qty: 4 1RF Rx Instructions: apply 4 hours prior to sailing (DME) Contour Test Strips Strip See Dose Instructions .ROUTE .MEDSUPPLY Qty: 900 8RF Dose Instruction: As directed Rx Instructions: test 10x per day (DME) Precision Q-I-D Test Strip See Rx Instructions .ROUTE .MEDSUPPLY Qty: 1000 6RF Rx Instructions: Insulin pump. Test 10x daily cholecalciferol (vitamin D3) 5,000 UNIT capsule 5,000 unit PO DAILY 0RF glatiramer [Copaxone] 40 MG/ML syringe 40 mg IM/SC . 3 X A WEEK 0RF acetaminophen [Acetaminophen Extra Strength] 500 MG tablet 1,000 mg PO TID PRN PRNQty: 180 0RF ibuprofen 600 MG tablet 600 mg PO Q6H PRN Qty: 60 2RF Discontinued polyethylene glycol 3350 17 gram powder in packet 255 g PO DAILY Qty: 15 0RF Rx Instructions: Mix 255 gm in 64 oz of gatorade or juice. Drink as directed Discharge Instructions Additional Instructions: Findings: Normal colonoscopy Follow up: 10 years Please call if you develop: fevers >101.5 Nausea or Vomiting Abdominal pain that is not transient Rectal bleeding that is more then a tbsp A hard abdomen and inability to pass gas DAY SURGERY UNIT POST ENDOSCOPY INSTRUCTIONS Instructions for everyone who is given Anesthesia: For your safety, please do the following for the next 24 Hours: a. Do not drive or operate dangerous equipment b. Do not drink alcohol beverages or use any recreational drugs for the first 24 hours or while taking pain medications. The medications in your body may have a reaction that can be dangerous. c. Do not make any important decisions or sign any important papers 1. Generally there are no restrictions on your activity after a day or so has gone by, but you may feel a bit fatigued for a few days. 2. After you arrive home you may have a light meal and return to a normal diet as you can tolerate it without feeling sick to your stomach. 3. After surgery, you may feel pain or discomfort. This should be only transient, but if it persists please contact your doctor. 4. If there are any questions regarding the findings of your procedure, please feel free to contact your doctor. 6. If you are unable to contact your doctor with a problem, contact the hospital at [phone]. 7. Continue all your regular medications unless directed otherwise. I understand the above instructions and have no questions. Signature of Patient or Responsible Adult Escort Date/Time Name of Responsible Adult Escort Signature of Nurse Date/Time Activity:: Activity as Tolerated Diet:: As Tolerated Discharge Orders Discharge Orders: Discharge Order (Routine); Ordered 08/30/21 Ordered By: Rica Montalvo
[2021-08-30 07:25] VITALS: BP 115/76; PULSE 89; RESP 16; TEMP 36.4; O2SAT 100
[2021-08-30] MEDS: Lactated Ringers 1,000 ML 80 ML IV (07:45)
[2021-08-30 08:15] VITALS: BMI 25.7
--- NOTE | 2021-08-30 08:15 | W.ANESPRE ---
General Info Date of Service Date Performed: 08/30/21 Height: 5 ft 6 in Weight: 72.4 kg Body Mass Index (BMI): 25.7 Surgical Procedure: Operation Date: 08/30/21 08:20 Proposed Procedure Side Surgeon p Nikki Montalvo MD Meds Allergies and Home Medications Allergies Allergy/AdvReac Type Severity Reaction Status Date / Time sulfur dioxide Allergy Intermediate Skin Rash Verified 08/26/21 10:01 Home Medication Medication Instructions Recorded tizanidine 2 mg tablet 2 mg PO HS #1 02/04/15 fludrocortisone 0.1 mg tablet 0.1 mg PO DAILY #90 tab 12/08/15 acetaminophen 500 mg tablet 1,000 mg PO TID PRN PRN #180 tab 02/09/16 (Acetaminophen Extra Strength) cholecalciferol (vitamin D3) 125 5,000 unit PO DAILY 02/09/16 mcg (5,000 unit) capsule glatiramer 40 mg/mL subcutaneous 40 mg IM/SC . 3 X A WEEK 02/09/16 syringe (Copaxone) gabapentin 100 mg capsule 100 mg PO daily prn #60 cap 04/14/17 glucagon (human recombinant) 1 mg 1 mg IJ PRN PRN #2 kit 09/18/17 injection kit (Glucagon Emergency Kit (human-recomb)) ibuprofen 600 mg tablet 600 mg PO Q6H PRN #60 tab-cap 11/21/17 gabapentin 300 mg capsule 300 - 600 mg PO BID #270 tab-cap 01/19/18 baclofen 10 mg tablet 10 mg PO BID PRN #60 tab 05/18/18 prochlorperazine maleate 5 mg 5 mg PO BID-TID PRN #30 tab 09/13/18 tablet (Compazine) insulin lispro 100 unit/mL 1 sliding sc SC USEASDIRECTD #30 ml 05/27/19 subcutaneous solution (Humalog U-100 Insulin) blood sugar diagnostic #900 strip 04/03/20 blood-glucose meter (OneTouch #1 04/08/20 Verio Meter) ondansetron HCl 4 mg tablet 4 mg PO Q8H PRN #20 tab 08/05/20 (Zofran) scopolamine base 1 mg over 3 days 1 patch TRANSDERMAL ONCE #4 ea 11/16/20 transdermal patch (Transderm-Scop) Precision Q-I-D Test (blood sugar #1000 ea NS 04/15/21 diagnostic) blood sugar diagnostic (Contour #900 04/15/21 Test Strips) atorvastatin 10 mg tablet 10 mg PO DAILY 08/17/21 bisacodyl 5 mg tablet,delayed 5 mg PO ONCE #4 tab 08/17/21 release (Dulcolax (bisacodyl)) magnesium citrate 300 ml PO ONCE #296 ml 08/17/21 polyethylene glycol 3350 17 gram 255 g PO DAILY #15 ea 08/17/21 oral powder packet Current Visit Medications: Current Medications Generic Name Dose Route Start Last Admin Trade Name Freq PRN Reason Stop Dose Admin Hyoscyamine Sulfate 0.125 mg 08/30/21 06:36 Hyoscyamine 0.125 Mg Sl/Oral/Chew SL DIRECTED PRN Ringer's Solution 1,000 mls @ 80 mls/hr 08/30/21 06:00 08/30/21 07:45 IV 09/26/21 23:59 80 mls/hr INFUSION OSMIN Administration IV Miscellaneous Supplies 1 each 08/30/21 06:00 Iv Access IV 09/26/21 23:59 DIRECTED OSMIN Ondansetron HCl 4 mg 08/30/21 06:36 Ondansetron 4 Mg/2 Ml Vial IVP Q4H PRN PRN Nausea / Vomiting Sodium Chloride 0 ml 08/30/21 06:00 Normal Saline Flush 10 Ml Syr IV 09/26/21 23:59 PRN PRN Sodium Chloride 0 ml 08/30/21 06:00 Normal Saline 10 Ml Vial IJ 09/26/21 23:59 DIRECTED PRN Sterile Water 0 ml 08/30/21 06:00 Water,Injection,Sterile 10 Ml Vial IJ 09/26/21 23:59 DIRECTED PRN PFSH Active Problems Active Problems: Problem Status Onset Code Anemia D64.9 MS (multiple sclerosis) G35 Nausea R11.0 Chronic constipation K59.09 Abdominal pain R10.9 Type 1 diabetes E10.9 Medical History Medical History Acute appendicitis Allergic rhinitis Arthralgia of left temporomandibular joint ASCUS of cervix with negative high risk HPV (02/22/17) Biceps tendinitis of left shoulder (06/26/17) Carpal tunnel syndrome of right wrist (04/07/16) Chronic ear pain Chronic kidney disease, unspecified Cubital tunnel syndrome on right (04/07/16) DM type 1 (diabetes mellitus, type 1) Dupuytren's disease of palm of right hand Essential hypertension Hypoglycemia Numbness of right hand Osteoarthritis of carpometacarpal (CMC) joint of left thumb Otalgia of right ear Patellofemoral syndrome, left (07/24/17) Peripheral neuralgia diabetic; onset at age 12 Proliferative diabetic retinopathy 04/09/20 B/L Psoas tendinitis, left hip (02/27/17) Synovial cyst of popliteal space [Johnson], right knee Trigger finger, left middle finger (02/27/17) Trigger finger, right little finger (08/31/16) Vitreous hemorrhage (04/27/02) O.D. Surgical History Surgical History (Updated 08/30/21 @ 07:19 by Gemini Arnold) Extraction of cataract O.U. History of cataract removal with insertion of prosthetic lens History of vitrectomy Hx of appendectomy Open Carpal Tunnel release S/P laparoscopic appendectomy (~09/14/18) Trigger Finger release X 2 ULNAR RETRACTMENT Tobacco Smoking/Tobacco Use Status: Current-Occasional Tobacco Type: cigarettes Smoking cigarettes per day: 2 Passive smoking exposure: Yes Second hand exposure: Yes Alcohol Alcohol Intake: never Substance Use Substance use type: does not use Vital Signs and Lab Results Vital Signs Most Recent Vital Signs in EMR: Most Recent Vital Signs Temp Pulse Resp BP Pulse Ox 36.4 C L 89 16 115/76 100 08/30/21 07:25 08/30/21 07:25 08/30/21 07:25 08/30/21 07:25 08/30/21 07:25 Lab Results Blood Type / Crossmatch: No Data to Display Complete Blood Count: White Blood Count 7.62 10^3/uL (4.4-10.8) 08/09/21 15:01 08/09/21 Red Blood Count 4.03 10^6/uL (3.93-5.22) 08/09/21 15:01 08/09/21 Hemoglobin 13.1 g/dL (11.2-15.7) 08/09/21 15:01 08/09/21 Hematocrit 38.5 % (36.0-46.0) 08/09/21 15:01 08/09/21 Platelet Count 177 10^3/uL (130-400) 08/09/21 15:01 08/09/21 Complete Metabolic Panel: Sodium Level 137 mmol/L (136-145) 08/18/21 07:10 08/18/21 Potassium Level 4.3 mmol/L (3.5-5.1) 08/18/21 07:10 08/18/21 Chloride Level 102 mmol/L (98-107) 08/18/21 07:10 08/18/21 Carbon Dioxide Level 28.2 mmol/L (21.0-32.0) 08/18/21 07:10 08/18/21 Blood Urea Nitrogen 16 mg/dL (7-18) 08/18/21 07:10 08/18/21 Creatinine 1.2 mg/dL (0.55-1.02) H 08/18/21 07:10 08/18/21 Estimated GFR/1.73 m2 48.15 (mL/min/1.73m2) 08/18/21 07:10 08/18/21 Magnesium Level 1.8 mg/dL (1.8-2.4) 08/09/21 15:01 08/09/21 Calcium Level 8.7 mg/dL (8.5-10.1) 08/18/21 07:10 08/18/21 Albumin 4.0 g/dL (3.4-5.0) 08/09/21 15:01 08/09/21 Glucose Level 108 mg/dL (74-106) H 08/18/21 07:10 08/18/21 Hemoglobin A1c 6.3 % (<5.7) H 08/18/21 07:10 08/18/21 Liver Function Panel: Alanine Aminotransferase (ALT/SGPT) 22 U/L (14-59) 08/09/21 15:01 08/09/21 Aspartate Amino Transf (AST/SGOT) 17 U/L (15-37) 08/09/21 15:01 08/09/21 Coagulation Panel: No Data to Display Cardiac Panel: No Data to Display Arterial Blood Gas: No Data to Display Venous Blood Gas: No Data to Display Pancreas Panel: Lipase 24 U/L (73-393) 08/09/21 15:01 08/09/21 Thyroid Panel: No Data to Display Infectious Disease: Coronavirus (COVID-19)(PCR) Negative (Negative) 08/27/21 08:32 08/27/21 Coronavirus 2019 Source Nasal/Nares 08/27/21 08:32 08/27/21 Blood Cultures: No Data to Display Toxicology Panel: No Data to Display Panel: No Data to Display Anesthesia Assessment and Plan Anesthesia History Personal History: No History of Anesthesia Complications Family History: No Family History of Anesthesia Complications Exercise Tolerance Exercise Tolerance: Metabolic Equivalents>4 Pertinent Negatives Pertinent Negatives: No Symptoms of GERD Cardiac & Pulmonary Exam Cardiac Exam: Normal S1/S2 Heart Sounds Pulmonary Exam: Clear Bilateral Breath Sounds Implantable Cardiac Device Does patient have a Pacemaker or an ICD?: No Airway Exam Known Difficult Airway: No Mallampati Class: 2 Mouth Opening: Normal (> 3cm) Thyromental Distance: Greater than 3 cm Neck Range of Motion: Full ROM Neck Circumference: Normal Teeth Condition: Normal Dentition ASA Classification ASA Score: ASA 3 Emergency Case?: No NPO Status NPO Status: NPO Clears >2 hours, Solids >8 hours Status Status: Negative HCG Anesthesia Plan Resuscitation Status: Full Code Anesthesia Technique: General Anesthesia Airway Planned: Natural Airway Monitors Used: Standard Monitors
[2021-08-30 09:00] VITALS: BP 99/65; PULSE 83; RESP 20; TEMP 36.3; O2SAT 99
[2021-08-30 09:25] VITALS: BP 123/77; PULSE 86; RESP 18; TEMP 37.1; O2SAT 97
--- NOTE | 2021-08-30 09:33 | W.ANESPOSTOP ---
Postoperative Evaluation Date, Time and Location Date Performed: 08/30/21 Time Performed: 09:05 Patient Location: Day Surgery Unit Vital Signs Most Recent Imported Vital Signs: Most Recent Vital Signs Temp Pulse Resp BP Pulse Ox 36.3 C L 83 20 99/65 L 99 08/30/21 09:00 08/30/21 09:00 08/30/21 09:00 08/30/21 09:00 08/30/21 09:00 Pain Score Most Recent Pain Score: Most Recent Pain Score Pain Level 0 08/30/21 09:00 Assessment Mental Status: Awake (Alert & Oriented to Patient Baseline) Airway and Respiratory Function: Patent airway with normal (patient baseline) respiratory exam Cardiovascular Function: Hemodynamically Stable Hydration Status: Adequately Hydrated Nausea & Vomiting: No Nausea or Vomiting Pain: Pt. Denies Any Pain Peripheral Nerve Block: Patient did not receive a nerve block
== END 2021-08-30 10:03 | disposition home or self-care (01) ==
LOC: SUR 06:40
PROVIDERS: PCP Family Medicine; Visit Provider Surgery
PROC: 0DJD8ZZ Inspection of Lower Intestinal Tract, Via Natural or Artificial Opening Endoscopic (ICD-10-PCS; CPT 45378; principal; 2021-08-30 08:15)
DX: Z12.11 Encounter for screening for malignant neoplasm of colon (principal); K59.09 Other constipation
CPT/HCPCS: 45378; 81025

== ENCOUNTER → 2021-11-10 01:41 | Outpatient (CLI) | payer OTHER, SELFPAY ==
--- NOTE | 2021-11-10 06:38 | DI.MAMMO_ITS ---
Exam(s) MAMMO SCREENING EXAM: MAMMO SCREENING CLINICAL HISTORY: screening,Z12.39. TECHNIQUE: Bilateral full field digital CC and MLO mammographic images were obtained with 3D tomosyn thesis and utilizing computer aided detection (CAD). COMPARISON: Prior mammograms were reviewed, the most recent being December 2018. FINDINGS: There has been no significant change in the appearance and distribution of fibroglandular tissue whic h is again noted be moderately dense. There are no CAD designations. There are no new spiculated masses nor malignant appearing microcalcification groups. There is no significant architectural distortion nor skin thickening-retraction. IMPRESSION: No radiographic evidence of malignancy. BI-RADS Category 1 - Negative Breast Density - Category C - Heterogeneously dense Breast density Category C or D implies that the patient has dense breast tissue. Dense breast tissue can make it harder to find cancer on a mammogram. Dense breast tissue is also associated with an incr eased risk of breast cancer. This information about the result of the mammogram report was provided to the patient to raise their awareness. Use this report when you speak with the patient about their risks for breast cancer, which includes their family history. At that time, you may recommend additional screening tests (Ultrasoun d or MRI) as these tests may add significant information. A negative radiographic report should not delay biopsy if a dominant or clinically suspicious mass is present. Up to ten percent of cancers are not identified on mammography. A negative report may reinforce clinical impression. Adenosis and dense breasts may obscure an underlying neoplasm. False positive reports average 6 to 10%. Patient will receive a letter notifying them of these results.
--- NOTE | 2021-11-10 15:05 | DI.RAD_ITS ---
Exam(s) XR FOOT LT COMPLETE EXAM: XR FOOT LT COMPLETE CLINICAL HISTORY: foot pain and bony growth - top of left foot,M89.8X9. TECHNIQUE: 2D digital imaging was performed. COMPARISON: CR,XR XR FOOT RT COMPLETE from 05/18/2020 FINDINGS: 3 views No evidence of fracture or diastasis of Lisfranc joint. Bone density normal. No osseous lesions nor erosions. Evidence of osteomyelitis. Inferior calcaneal spur. IMPRESSION: No significant DATA REPOSITORY: RADIATION DOSE DELIVERED:
== END ==
PROVIDERS: PCP Family Medicine; Visit Provider Emergency Medicine
DX: M89.8X9 Other specified disorders of bone, unspecified site (principal); M79.672 Pain in left foot; Z12.31 Encounter for screening mammogram for malignant neoplasm of breast
CPT/HCPCS: 77063; 77067; 73630

== ENCOUNTER 2021-12-10 08:41 | Outpatient (REF) | payer OTHER, SELFPAY ==
--- NOTE | 2021-12-10 07:50 | PAPFT_PTH ---
PATIENT: Na Anthony LOC: [facility] U#:[id number] AGE/SX: 46/F ROOM: RE12/10/[address]: Anabelle Medina : 1975 BED: DIS: 12/10/2021 SPEC #: [id number] RECD: 12/10/21 13:02 STATUS: EFE RECristian #: [id number] RAINE: 12/10/21 07:[address]: Anabelle Medina DEPT: [facility] Cytology RECD BY: Janine Costa Tissues: 1 - CX/ENDOCX FOR PAP SMEARS Procedures: PAP THIN PREP/UVM Screening HPV DNA PROBE Comments: [id number]
== END 2021-12-10 08:42 | disposition home or self-care (01) ==
LOC: LBN 08:41
PROVIDERS: PCP Family Medicine; Visit Provider Family Medicine
DX: R87.610 Atypical squamous cells of undetermined significance on cytologic smear of cervix (ASC-US) (principal); Z12.4 Encounter for screening for malignant neoplasm of cervix; Z11.51 Encounter for screening for human papillomavirus (HPV)
CPT/HCPCS: 88142; 87624

== ENCOUNTER 2022-01-17 03:34 | Outpatient (CLI) | payer OTHER, SELFPAY ==
[2022-01-17 12:49] LABS: Source Nasal/Nares
[2022-01-17 15:25] LABS: COVID-19 PCR Negative (Negative)
== END 2022-01-17 03:35 | disposition home or self-care (01) ==
LOC: LBO 03:35
PROVIDERS: PCP Family Medicine; Visit Provider Student in an Organized Health Care Education/Training Program
DX: Z20.822 Contact with and (suspected) exposure to COVID-19 (principal)
CPT/HCPCS: 87635

== ENCOUNTER 2022-01-19 09:16 | Day surgery (SDC) | payer OTHER, SELFPAY ==
--- NOTE | 2022-01-19 07:34 | W.PM.DSUDISC ---
Discharge Plan Disposition Patient Disposition: HOME Condition: Good Discharge Details Reason For Visit: metatarsal boss of left foot Attending Provider: Kirk Langford Primary Care Provider: Anabelle Medina Home Meds and New Rx's Prescriptions: New acetaminophen 500 mg tablet 500 mg PO Q6H PRN (Reason: pain) Qty: 60 2RF hydrocodone-acetaminophen 5-325 mg tablet 1 tab PO Q6H PRN (Reason: severe pain) Qty: 4 0RF Rx Instructions: Take one tablet up to every 6 hours as needed for severe postoperative pain ibuprofen 600 mg tablet 600 mg PO TID PRN (Reason: pain) Qty: 60 0RF Continued baclofen 10 mg tablet 10 mg PO BID PRN (Reason: muscle spasticity) Qty: 60 3RF atorvastatin 10 mg tablet 10 mg PO DAILY tizanidine 2 MG tablet 2 mg PO HS Qty: 1 fludrocortisone 0.1 MG tablet 0.1 mg PO DAILY Qty: 90 gabapentin 100 MG capsule 100 mg PO daily prn Qty: 60 3RF Glucagon Emergency Kit (human) 1 MG kit 1 mg IJ PRN PRNQty: 2 gabapentin 300 MG capsule 300 - 600 mg PO BID Qty: 270 3RF Rx Instructions: one tab a.m., two tabs p.m. prochlorperazine maleate [Compazine] 5 mg tablet 5 mg PO BID-TID PRN (Reason: nausea and vomiting) Qty: 30 0RF insulin lispro [Humalog U-100 Insulin] 100 unit/mL solution 1 sliding sc SC USEASDIRECTD Qty: 30 2RF Label Comments: pt. has pump in place Rx Instructions: uses diabetic pump (DME) blood sugar diagnostic Strip 1 ea Miscellaneous 10x daily Qty: 900 12RF Rx Instructions: E10.65 on insulin pump (DME) blood-glucose meter [OneTouch Verio Meter] Misc See Rx Instructions .ROUTE .MEDSUPPLY Qty: 1 0RF Label Comments: pt has insulin pump in place in L abdomen, monitor in L upper arm Rx Instructions: As directed scopolamine base [Transderm-Scop] 1 mg over 3 days patch 3 day 1 patch Transdermal ONCE Qty: 4 1RF Rx Instructions: apply 4 hours prior to sailing (DME) Contour Test Strips Strip See Dose Instructions .ROUTE .MEDSUPPLY Qty: 900 8RF Dose Instruction: As directed Rx Instructions: test 10x per day (DME) Precision Q-I-D Test Strip See Rx Instructions .ROUTE .MEDSUPPLY Qty: 1000 6RF Rx Instructions: Insulin pump. Test 10x daily fluconazole 150 mg tablet 150 mg PO ONCE Qty: 2 2RF Rx Instructions: as a single dose cholecalciferol (vitamin D3) 5,000 UNIT capsule 5,000 unit PO DAILY glatiramer [Copaxone] 40 MG/ML syringe 40 mg IM/SC . 3 X A WEEK Discontinued ibuprofen 600 mg tablet 600 mg PO Q8H Qty: 60 2RF acetaminophen [Acetaminophen Extra Strength] 500 MG tablet 1,000 mg PO TID PRN PRNQty: 180 0RF Discharge Instructions Additional Instructions: Metatarsal Ostectomy Discharge Instructions Activity: You are allowed to weight bear as tolerated. You should keep the leg elevated as much as possible. You may wiggle your toes and move your hip and knee. Wear postop sandal for ambulation. Dressings: You should keep your dressings on for 72 hours then may remove. Clean area and cover with bandaides daily. Medications: - You should take Tylenol and Ibuprofen around the clock for baseline pain. - You have been prescribed a stronger narcotic for breakthrough pain. Follow-up: 2 weeks Referrals: Kirk Langford MD [ [facility] STAFF PHYSICIAN] - Activity:: Elevate Remove Dressings/Wound Care:: 72 hours Shower/Bathe:: 72 hours Diet:: As Tolerated Discharge Orders Discharge Orders: Discharge Order (Routine); Ordered 01/19/22 Ordered By: Luci Aviles
--- NOTE | 2022-01-19 08:33 | W.ANESPRE ---
General Info Height: 5 ft 6 in Weight: 74.389 kg Body Mass Index (BMI): 26.4 Surgical Procedure: Operation Date: 01/19/22 11:55 Proposed Procedure Side Surgeon p Ostectomy 1st Metatarsal Left Kirk Langford MD Meds Allergies and Home Medications Allergies Allergy/AdvReac Type Severity Reaction Status Date / Time sulfur dioxide Allergy Intermediate Skin Rash Verified 01/18/22 09:42 Home Medication Medication Instructions Recorded tizanidine 2 mg tablet 2 mg PO HS ##1 02/04/15 fludrocortisone 0.1 mg tablet 0.1 mg PO DAILY #90 tabs 12/08/15 acetaminophen 500 mg tablet 1,000 mg PO TID PRN PRN #180 tabs 02/09/16 (Acetaminophen Extra Strength) cholecalciferol (vitamin D3) 125 5,000 unit PO DAILY 02/09/16 mcg (5,000 unit) capsule glatiramer 40 mg/mL subcutaneous 40 mg IM/SC . 3 X A WEEK 02/09/16 syringe (Copaxone) gabapentin 100 mg capsule 100 mg PO daily prn #60 caps 04/14/17 glucagon (human recombinant) 1 mg 1 mg IJ PRN PRN ##2 09/18/17 injection kit (Glucagon Emergency Kit (human-recomb)) gabapentin 300 mg capsule 300 - 600 mg PO BID #270 tab-caps 01/19/18 baclofen 10 mg tablet 10 mg PO BID PRN muscle spasticity 05/18/18 #60 tabs prochlorperazine maleate 5 mg 5 mg PO BID-TID PRN nausea and 09/13/18 tablet (Compazine) vomiting #30 tabs insulin lispro 100 unit/mL 1 sliding sc subcut USEASDIRECTD 05/27/19 subcutaneous solution (Humalog #30 mL U-100 Insulin) blood sugar diagnostic #900 strips 04/03/20 blood-glucose meter (OneTouch ##1 04/08/20 Verio Meter) scopolamine base 1 mg over 3 days 1 patch transdermal ONCE #4 ea 11/16/20 transdermal patch (Transderm-Scop) Precision Q-I-D Test (blood sugar #1,000 ea 04/15/21 diagnostic) blood sugar diagnostic (Contour ##900 04/15/21 Test Strips) atorvastatin 10 mg tablet 10 mg PO DAILY 08/17/21 fluconazole 150 mg tablet 150 mg PO ONCE #2 tabs 12/29/21 ibuprofen 600 mg tablet 600 mg PO Q8H #60 tab-caps 01/10/22 Current Visit Medications: Current Medications Generic Name Dose Route Start Last Admin Trade Name Naman PRN Reason Stop Dose Admin Acetaminophen 650 mg 01/19/22 07:32 Acetaminophen 325 Mg Tab PO Q4H PRN PRN Hydrocodone Bitart/Acetaminophen 0 tab 01/19/22 07:32 Hydrocodone 5/Acetaminophen 325 Tab PO Q3H PRN PRN Pain Ringer's Solution 1,000 mls @ 80 mls/hr 01/19/22 06:00 IV 01/19/22 23:59 INFUSION OSMIN Cefazolin Sodium/Dextrose 2 gm in 50 mls @ 100 mls/hr 01/19/22 06:00 Ancef Duplex IVPB 01/19/22 23:59 PREOP OSMIN IV Miscellaneous Supplies 1 each 01/19/22 06:00 Iv Access IV 01/19/22 23:59 DIRECTED OSMIN Sodium Chloride 0 ml 01/19/22 06:00 Normal Saline Flush 10 Ml Syr IV 01/19/22 23:59 PRN PRN Sodium Chloride 0 ml 01/19/22 06:00 Normal Saline 10 Ml Vial IJ 01/19/22 23:59 DIRECTED PRN Sterile Water 0 ml 01/19/22 06:00 Water,Injection,Sterile 10 Ml Vial IJ 01/19/22 23:59 DIRECTED PRN PFSH Active Problems Active Problems: Problem Status Onset Code Metatarsal boss of left foot M25.775 Mass of left foot R22.42 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 E10.21 Autonomic neuropathy due to diabetes E11.43 Proliferative diabetic retinopathy E11.3599 Essential hypertension I10 Foot pain, left M79.672 Bony growth M89.8X9 MS (multiple sclerosis) G35 Nausea R11.0 Chronic constipation K59.09 Medical History Medical History Allergic rhinitis Arthralgia of left temporomandibular joint ASCUS of cervix with negative high risk HPV (02/22/17) Chronic ear pain Dupuytren's disease of palm of right hand Osteoarthritis of carpometacarpal (CMC) joint of left thumb Patellofemoral syndrome, left (07/24/17) Peripheral neuralgia diabetic; onset at age 12 Synovial cyst of popliteal space [Johnson], right knee Vitreous hemorrhage (04/27/02) O.D. Medical History Comments:: Insulin Pump & Dexcomm CGM in situ Surgical History Surgical History History of cataract removal with insertion of prosthetic lens History of colonoscopy (~08/2021) History of vitrectomy S/P carpal tunnel release S/P cataract extraction S/P decompression of ulnar nerve S/P laparoscopic appendectomy (~09/14/18) S/P trigger finger release Tobacco Smoking/Tobacco Use Status: Current-Occasional Tobacco Type: cigarettes Passive smoking exposure: Yes Second hand exposure: Yes Alcohol Alcohol Intake: never Substance Use Substance use: Never Substance use type: does not use Prental History History 0 Para 0 Hx # Term Pregnancies Multiple births Hx # Pregnancies Ectopic pregnancies AB induced Hx Number of Living Children AB spontaneous Vital Signs and Lab Results Lab Results Blood Type / Crossmatch: No Data to Display Complete Blood Count: No Data to Display Complete Metabolic Panel: No Data to Display Liver Function Panel: No Data to Display Coagulation Panel: No Data to Display Cardiac Panel: No Data to Display Arterial Blood Gas: No Data to Display Venous Blood Gas: No Data to Display Pancreas Panel: No Data to Display Thyroid Panel: No Data to Display Infectious Disease: Coronavirus (COVID-19)(PCR) Negative (Negative) 01/17/22 07:58 Coronavirus 2019 Source Nasal/Nares 01/17/22 07:58 Blood Cultures: No Data to Display Toxicology Panel: No Data to Display Panel: No Data to Display Anesthesia Assessment and Plan Anesthesia History Personal History: No History of Anesthesia Complications Family History: No Family History of Anesthesia Complications Exercise Tolerance Exercise Tolerance: Metabolic Equivalents>4 Implantable Cardiac Device Does patient have a Pacemaker or an ICD?: No Airway Exam Known Difficult Airway: No Mallampati Class: 2 Mouth Opening: Normal (> 3cm) Thyromental Distance: Greater than 3 cm Neck Range of Motion: Full ROM Neck Circumference: Normal Teeth Condition: Normal Dentition ASA Classification ASA Score: ASA 2 Emergency Case?: No Anesthesia Plan Resuscitation Status: Full Code Anesthesia Technique: General Anesthesia Airway Planned: LMA Monitors Used: Standard Monitors Preoperative Comments:: 46 yo female for ostectomy left 1st met. Sig PMHx: DM1, autonomic neuropathy r/t DM, HTN, MS, vitreous hemorrhage, occ smoker, CKDIII, retinopathy. Previous LMA 4, pace 2 grade 1, air-q 3.5, easy mask.
[2022-01-19 09:47] VITALS: BP 99/73; PULSE 89; RESP 19; TEMP 37; O2SAT 99
[2022-01-19] MEDS: Lactated Ringers 1,000 ML 80 ML IV (10:02)
--- NOTE | 2022-01-19 10:13 | HPE_ITS ---
Assessment and Plan Assessment and plan (1) Metatarsal boss of left foot: Status: Acute Assessment and plan: Na is a 46-year-old who has a painful boss, osteophyte, of the first TMT joint. This is interfering with daily activities and shoewear and therefore I recommended an excision. I reviewed the risk of the procedure to include bleeding, infection, pain, stiffness, damage nerves and vessels, recurrence or incomplete resection. Despite these risk, she elects to proceed. I also reviewed the necessary time for rehabilitation. All of her questions were answered. History of Present Illness History of Present Illness Chief Complaint: Left foot osteophyte Narrative: Na is a 46-year-old who presented to the office with pain from a prominence over the dorsum of her left foot. She had a prominent osteophyte, boss, about the first TMT joint. This was interfering with her shoewear and was causing pain. Therefore I did offer excision. She is here today for that procedure. She denies any medical issues. No changes to her health. No COVID-19 symptoms no contacts. 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 Nielson at [facility] [place] [place] Nausea (Acute) Chronic constipation (Acute) Medical History Allergic rhinitis Arthralgia of left temporomandibular joint ASCUS of cervix with negative high risk HPV (02/22/17) Chronic ear pain Dupuytren's disease of palm of right hand Osteoarthritis of carpometacarpal (CMC) joint of left thumb Patellofemoral syndrome, left (07/24/17) Peripheral neuralgia diabetic; onset at age 12 Synovial cyst of popliteal space [Johnson], right knee Vitreous hemorrhage (04/27/02) O.D. Surgical History History of cataract removal with insertion of prosthetic lens History of colonoscopy (~08/2021) History of vitrectomy S/P carpal tunnel release S/P cataract extraction S/P decompression of ulnar nerve S/P laparoscopic appendectomy (~09/14/18) S/P trigger finger release Family History Mother , AGE 49 CMML (chronic myelomonocytic leukemia) Father , 83 Essential hypertension Sister No problems noted. Brother No problems noted. Brother No problems noted. 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 Pets and animals: Yes Pets and animals: cat(s) Sexually active: Yes Do you think of yourself as: straight/heterosexual Current gender identity: female What is your relationship status?: How often do you talk on the phone with friends or family?: three or more times per week How often do you get together with friends or relatives?: three or more times per week How often do you attend lutheran or rastafari services?: decline to answer Do you belong to any clubs or organized social groups?: yes Panel score (0-1 are the most socially isolated patients): 3 Duration: 30-45 minutes/day Frequency: does not exercise Chioma/Bahai: Baptism Special chioma needs: No Seatbelt use: always Drive intox or ride w/intox service car driver: No Do you feel safe at home: Yes Do you feel safe in your relationship?: Yes Female Reproductive History Menstrual control method: permanent sterilization (vasectomy) History History 0 Para 0 Hx # Term Pregnancies Multiple births Hx # Pregnancies Ectopic pregnancies AB induced Hx Number of Living Children AB spontaneous Meds Allergies and Home Medications Allergies Allergy/AdvReac Type Severity Reaction Status Date / Time sulfur dioxide Allergy Intermediate Skin Rash Verified 01/19/22 09:37 Home Medications Medication Instructions Recorded Confirmed Type tizanidine 2 mg tablet 2 mg PO HS ##1 02/04/15 01/19/22 History fludrocortisone 0.1 mg tablet 0.1 mg PO DAILY #90 tabs 12/08/15 01/19/22 History acetaminophen 500 mg tablet 1,000 mg PO TID PRN PRN #180 tabs 02/09/16 01/19/22 Rx (Acetaminophen Extra Strength) cholecalciferol (vitamin D3) 125 5,000 unit PO DAILY 02/09/16 01/19/22 History mcg (5,000 unit) capsule glatiramer 40 mg/mL subcutaneous 40 mg IM/SC . 3 X A WEEK 02/09/16 01/19/22 History syringe (Copaxone) gabapentin 100 mg capsule 100 mg PO daily prn #60 caps 04/14/17 01/19/22 Rx glucagon (human recombinant) 1 mg 1 mg IJ PRN PRN ##2 09/18/17 01/18/22 History injection kit (Glucagon Emergency Kit (human-recomb)) gabapentin 300 mg capsule 300 - 600 mg PO BID #270 tab-caps 01/19/18 01/19/22 Rx baclofen 10 mg tablet 10 mg PO BID PRN muscle spasticity 05/18/18 01/19/22 Rx #60 tabs prochlorperazine maleate 5 mg 5 mg PO BID-TID PRN nausea and 09/13/18 01/19/22 Rx tablet (Compazine) vomiting #30 tabs insulin lispro 100 unit/mL 1 sliding sc subcut USEASDIRECTD 05/27/19 01/19/22 Rx subcutaneous solution (Humalog #30 mL U-100 Insulin) blood sugar diagnostic #900 strips 04/03/20 01/18/22 Rx blood-glucose meter (OneTouch ##1 04/08/20 01/18/22 Rx Verio Meter) scopolamine base 1 mg over 3 days 1 patch transdermal ONCE #4 ea 11/16/20 01/19/22 Rx transdermal patch (Transderm-Scop) Precision Q-I-D Test (blood sugar #1,000 ea 04/15/21 01/18/22 Rx diagnostic) blood sugar diagnostic (Contour ##900 04/15/21 01/18/22 Rx Test Strips) atorvastatin 10 mg tablet 10 mg PO DAILY 08/17/21 01/19/22 History fluconazole 150 mg tablet 150 mg PO ONCE #2 tabs 12/29/21 01/19/22 Rx ibuprofen 600 mg tablet 600 mg PO Q8H #60 tab-caps 01/10/22 01/19/22 Rx Exam Narrative Exam Narrative: No acute distress. Alert and orient x3. Heart rate and rhythm are regular. Chest is clear to auscultation bilaterally. Prominence to the first TMT joint about the left foot. Sensation intact light touch of the deep and superficial peroneal nerve. Results Last Vital Signs Temp 37.0 C 01/19/22 09:47 Pulse 89 01/19/22 09:47 Resp 19 01/19/22 09:47 BP 99/73 L 01/19/22 09:47 Pulse Ox 99 01/19/22 09:47
[2022-01-19] MEDS: DEXTROSE 5%-LACTATED RINGERS 1,000 ML 30 ML IV (11:58)
[2022-01-19] MEDS: ceFAZolin 2 GM/50 ML BAG IVPB (12:00)
--- NOTE | 2022-01-19 12:06 | W.ANESPRE ---
General Info Date of Service Date Performed: 01/19/22 Height: 5 ft 6 in Weight: 73.9 kg Body Mass Index (BMI): 26.3 Surgical Procedure: Operation Date: 01/19/22 11:55 Proposed Procedure Side Surgeon p Ostectomy 1st Metatarsal Left Kirk Langford MD Meds Allergies and Home Medications Allergies Allergy/AdvReac Type Severity Reaction Status Date / Time sulfur dioxide Allergy Intermediate Skin Rash Verified 01/19/22 09:37 Home Medication Medication Instructions Recorded tizanidine 2 mg tablet 2 mg PO HS ##1 02/04/15 fludrocortisone 0.1 mg tablet 0.1 mg PO DAILY #90 tabs 12/08/15 acetaminophen 500 mg tablet 1,000 mg PO TID PRN PRN #180 tabs 02/09/16 (Acetaminophen Extra Strength) cholecalciferol (vitamin D3) 125 5,000 unit PO DAILY 02/09/16 mcg (5,000 unit) capsule glatiramer 40 mg/mL subcutaneous 40 mg IM/SC . 3 X A WEEK 02/09/16 syringe (Copaxone) gabapentin 100 mg capsule 100 mg PO daily prn #60 caps 04/14/17 glucagon (human recombinant) 1 mg 1 mg IJ PRN PRN ##2 09/18/17 injection kit (Glucagon Emergency Kit (human-recomb)) gabapentin 300 mg capsule 300 - 600 mg PO BID #270 tab-caps 01/19/18 baclofen 10 mg tablet 10 mg PO BID PRN muscle spasticity 05/18/18 #60 tabs prochlorperazine maleate 5 mg 5 mg PO BID-TID PRN nausea and 09/13/18 tablet (Compazine) vomiting #30 tabs insulin lispro 100 unit/mL 1 sliding sc subcut USEASDIRECTD 05/27/19 subcutaneous solution (Humalog #30 mL U-100 Insulin) blood sugar diagnostic #900 strips 04/03/20 blood-glucose meter (OneTouch ##1 04/08/20 Verio Meter) scopolamine base 1 mg over 3 days 1 patch transdermal ONCE #4 ea 11/16/20 transdermal patch (Transderm-Scop) Precision Q-I-D Test (blood sugar #1,000 ea 04/15/21 diagnostic) blood sugar diagnostic (Contour ##900 04/15/21 Test Strips) atorvastatin 10 mg tablet 10 mg PO DAILY 03/22/22 fluconazole 150 mg tablet 150 mg PO ONCE #2 tabs 12/29/21 ibuprofen 600 mg tablet 600 mg PO Q8H #60 tab-caps 01/10/22 Current Visit Medications: Current Medications Generic Name Dose Route Start Last Admin Trade Name Freq PRN Reason Stop Dose Admin Acetaminophen 650 mg 01/19/22 07:32 Acetaminophen 325 Mg Tab PO Q4H PRN PRN Hydrocodone Bitart/Acetaminophen 0 tab 01/19/22 07:32 Hydrocodone 5/Acetaminophen 325 Tab PO Q3H PRN PRN Pain Ringer's Solution 1,000 mls @ 80 mls/hr 01/19/22 06:00 01/19/22 11:52 IV 01/19/22 23:59 Infused INFUSION OSMIN Infusion Cefazolin Sodium/Dextrose 2 gm in 50 mls @ 100 mls/hr 01/19/22 06:00 Ancef Duplex IVPB 01/19/22 23:59 PREOP OSMIN IV Miscellaneous Supplies 1 each 01/19/22 06:00 Iv Access IV 01/19/22 23:59 DIRECTED OSMIN Sodium Chloride 0 ml 01/19/22 06:00 Normal Saline Flush 10 Ml Syr IV 01/19/22 23:59 PRN PRN Sodium Chloride 0 ml 01/19/22 06:00 Normal Saline 10 Ml Vial IJ 01/19/22 23:59 DIRECTED PRN Sterile Water 0 ml 01/19/22 06:00 Water,Injection,Sterile 10 Ml Vial IJ 01/19/22 23:59 DIRECTED PRN PFSH Active Problems Active Problems: Problem Status Onset Code Metatarsal boss of left foot M25.775 Mass of left foot R22.42 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 E10.21 Autonomic neuropathy due to diabetes E11.43 Proliferative diabetic retinopathy E11.3599 Essential hypertension I10 Foot pain, left M79.672 Bony growth M89.8X9 MS (multiple sclerosis) G35 Nausea R11.0 Chronic constipation K59.09 Medical History Medical History Allergic rhinitis Arthralgia of left temporomandibular joint ASCUS of cervix with negative high risk HPV (02/22/17) Chronic ear pain Dupuytren's disease of palm of right hand Osteoarthritis of carpometacarpal (CMC) joint of left thumb Patellofemoral syndrome, left (07/24/17) Peripheral neuralgia diabetic; onset at age 12 Synovial cyst of popliteal space [Johnson], right knee Vitreous hemorrhage (04/27/02) O.D. Medical History Comments:: Insulin Pump & Dexcomm CGM in situ Surgical History Surgical History History of cataract removal with insertion of prosthetic lens History of colonoscopy (~08/2021) History of vitrectomy S/P carpal tunnel release S/P cataract extraction S/P decompression of ulnar nerve S/P laparoscopic appendectomy (~09/14/18) S/P trigger finger release Tobacco Smoking/Tobacco Use Status: Current-Occasional Tobacco Type: cigarettes Passive smoking exposure: Yes Second hand exposure: Yes Alcohol Alcohol Intake: never Substance Use Substance use: Never Substance use type: does not use Prental History History 0 Para 0 Hx # Term Pregnancies Multiple births Hx # Pregnancies Ectopic pregnancies AB induced Hx Number of Living Children AB spontaneous Vital Signs and Lab Results Vital Signs Most Recent Vital Signs in EMR: Most Recent Vital Signs Temp Pulse Resp BP Pulse Ox 37.0 C 89 19 99/73 L 99 01/19/22 09:47 01/19/22 09:47 01/19/22 09:47 01/19/22 09:47 01/19/22 09:47 Point of Care Results Point of Care Results: POC- Test(urine) Negative 01/19/22 09:52 Lab Results Blood Type / Crossmatch: No Data to Display Complete Blood Count: No Data to Display Complete Metabolic Panel: No Data to Display Liver Function Panel: No Data to Display Coagulation Panel: No Data to Display Cardiac Panel: No Data to Display Arterial Blood Gas: No Data to Display Venous Blood Gas: No Data to Display Pancreas Panel: No Data to Display Thyroid Panel: No Data to Display Infectious Disease: Coronavirus (COVID-19)(PCR) Negative (Negative) 01/17/22 07:58 Coronavirus 2019 Source Nasal/Nares 01/17/22 07:58 Blood Cultures: No Data to Display Toxicology Panel: No Data to Display Panel: No Data to Display Anesthesia Assessment and Plan Anesthesia History Personal History: No History of Anesthesia Complications Family History: No Family History of Anesthesia Complications Exercise Tolerance Exercise Tolerance: Metabolic Equivalents>4 Pertinent Negatives Pertinent Negatives: No Symptoms of GERD, No Major Cardiovascular Symptoms or Complaints, No Major Pulmonary Symptoms or Complaints, No History of CVA/TIA and Other (Diabetes implanted Insulin pump) Cardiac & Pulmonary Exam Cardiac Exam: Normal S1/S2 Heart Sounds Pulmonary Exam: Clear Bilateral Breath Sounds Implantable Cardiac Device Does patient have a Pacemaker or an ICD?: No Airway Exam Known Difficult Airway: No Mallampati Class: 2 Mouth Opening: Normal (> 3cm) Thyromental Distance: Greater than 3 cm Neck Range of Motion: Full ROM Neck Circumference: Normal Teeth Condition: Normal Dentition ASA Classification ASA Score: ASA 2 Emergency Case?: No NPO Status NPO Status: NPO Clears >2 hours, Solids >8 hours Status Status: Negative HCG Anesthesia Plan Resuscitation Status: Full Code Anesthesia Technique: General Anesthesia Airway Planned: Natural Airway Monitors Used: Standard Monitors
[2022-01-19 12:08] VITALS: BMI 26.3
[2022-01-19] MEDS: Bupivacaine 0.5% Pres-Free 30 ML VIAL (12:27)
[2022-01-19] MEDS: Lidocaine 1% Multi-Dose W/EPI 1/100,000 50 ML VIAL (12:28)
[2022-01-19 12:40] VITALS: BP 128/72; PULSE 87; RESP 17; TEMP 36.5; O2SAT 100
[2022-01-19 13:11] VITALS: BP 138/81; PULSE 87; RESP 18; TEMP 36.5; O2SAT 97
--- NOTE | 2022-01-19 15:44 | W.ANESPOSTOP ---
Postoperative Evaluation Date, Time and Location Date Performed: 01/19/22 Time Performed: 13:15 Patient Location: Day Surgery Unit Vital Signs Most Recent Imported Vital Signs: Most Recent Vital Signs Temp Pulse Resp BP Pulse Ox 36.5 C 87 18 138/81 97 01/19/22 13:11 01/19/22 13:11 01/19/22 13:11 01/19/22 13:11 01/19/22 13:11 Pain Score Most Recent Pain Score: Most Recent Pain Score Pain Level 0 01/19/22 13:11 Assessment Mental Status: Awake (Alert & Oriented to Patient Baseline) Airway and Respiratory Function: Patent airway with normal (patient baseline) respiratory exam Cardiovascular Function: Hemodynamically Stable Hydration Status: Adequately Hydrated Nausea & Vomiting: No Nausea or Vomiting Pain: Pt. Denies Any Pain Peripheral Nerve Block: Patient did not receive a nerve block
--- NOTE | 2022-01-19 19:15 | W.PM.OP ---
Date of service: 01/19/22 Time of Service: 13:00 Operative Note Operative Note DATE OF PROCEDURE: 01/19/22 PRE-OP DIAGNOSIS: Left 1st TMT Osteophyte POST-OP DIAGNOSIS: same PROCEDURE: Ostectomy of 1st Metatarsal and Medial Cuneiform SURGEON: Kirk Langford ANESTHESIA TYPE: General:No Airway Refer to Anesthesia Record COMPLICATIONS: None Indications: Na is a 46-year-old who I saw in the office for a painful dorsal osteophyte about the left foot. This was now interfering with shoe wear. Given its effect on her daily function she desired surgical correction. I reviewed the surgery with her. I discussed the risk of the procedure to include bleeding, infection, pain, stiffness, recurrence, damage to nerves and vessels. Despite these risks, she elects to proceed. Findings: There is a prominent osteophyte about the base of the first metatarsal and to a lesser extent the medial cuneiform at the first TMT joint. No arthrosis was appreciated at the first TMT joint. Procedure Description: Na was greeted in the preoperative holding area. Her identity was confirmed the correct site was identified and marked. The consent was reviewed the patient and signed. History and physical was updated. She was taken back to the operating room and placed in the supine position. All bony prominences well-padded. The left foot was prepped with ChloraPrep and draped in standard fashion. A timeout was performed for safe surgery. The surgical site was anesthetized with a mixture of 0.5% bupivacaine along with 1% lidocaine with epinephrine. A linear 3 cm vision was then made overlying the first TMT joint. This was taken down just medial to the EHL tendon. Deeper dissection was performed bluntly to identify the extensor houses longus and an incision was then made into the capsule medial to the EHL tendon. This was able to expose the base of the first metatarsal as well as the medial cuneiform. Once this was exposed there is an obvious osteophyte to the dorsum of the first metatarsal. Additionally, there was a prominence to the medial cuneiform. This was fully identified and using a chisel I resected the bulk of the osteophyte. I then used a rongeur for any other areas of prominence. Additionally, I took a rasp to smooth these areas down. It was palpated and inspected on multiple occasions to make sure the bulk of the osteophyte was removed. From the dorsal surface the first TMT joint showed no signs of arthrosis. A small amount of bone wax was then applied to the cut surface of the bone. The deep tissues and the periosteum were then injected with the anesthetic mixture. The capsule of the first TMT joint was then closed with a #2-0 Vicryl. Deep tissues were closed with 3-0 Vicryl and the skin was closed with a running 4-0 Monocryl in a subcuticular fashion. This was then reinforced with skin glue. A Mepilex silver dressing was applied followed by an Dean wrap and a postop shoe.
== END 2022-01-19 13:40 | disposition home or self-care (01) ==
PROVIDERS: PCP Family Medicine; Visit Provider Student in an Organized Health Care Education/Training Program
PROC: (CPT 28292; principal; 2022-01-19 11:45)
DX: M25.775 Osteophyte, left foot (principal); E11.21 Type 2 diabetes mellitus with diabetic nephropathy; I10 Essential (primary) hypertension
CPT/HCPCS: 28104 ×2; 81025; J0690; J2250

== ENCOUNTER 2022-05-05 01:35 | Outpatient (CLI) | payer OTHER, SELFPAY ==
[2022-05-05 13:12] LABS: Hemoglobin A1C 6.2 % (<5.7)
[2022-05-05 13:25] LABS: ALT 26 U/L (14-59); AST 22 U/L (15-37); Albumin 3.9 g/dL (3.4-5.0); Alkaline Phosphatase 72 U/L (46-116); BUN 15 mg/dL (7-18); Bilirubin, Total 0.5 mg/dL (0.2-1.0); CREATININE 1.1 mg/dL (0.55-1.02); Chloride 103 mmol/L (98-107); Cholesterol 143 mg/dL (<200); Estimated GFR 61.98 (mL/min/1.73m2); Glucose 72 mg/dL (74-106); HDL Cholesterol 89 mg/dL (40-60); Potassium 3.8 mmol/L (3.5-5.1); Sodium 139 mmol/L (136-145); Total Protein 7.2 g/dL (6.4-8.2)
[2022-05-05 13:43] LABS: Triglyceride < 25 mg/dL (<150)
== END 2022-05-05 01:36 | disposition home or self-care (01) ==
PROVIDERS: PCP Family Medicine; Visit Provider Family Medicine
DX: E11.9 Type 2 diabetes mellitus without complications (principal); I10 Essential (primary) hypertension
CPT/HCPCS: 36415; 80053; 80061; 83036

== ENCOUNTER 2022-12-09 15:13 | Outpatient (REF) | payer OTHER, SELFPAY ==
--- NOTE | 2022-12-09 15:00 | PAPFT_PTH ---
PATIENT: Na Anthony LOC: [facility]#:[id number] AGE/SX: 47/F ROOM: RE12/09/[address]: Anabelle Medina : 1975 BED: DIS: 12/09/2022 SPEC #: [id number] RECD: 12/12/22 13:13 STATUS: EFE CISNEROS #: [id number] RAINE: 12/09/22 15:[address]: Anabelle Medina DEPT: [facility] Cytology RECD BY: Sindy Zepeda Tissues: 1 - CX/ENDOCX FOR PAP SMEARS Procedures: PAP THIN PREP/UVM Screening HPV DNA PROBE Comments: [id number]
== END 2022-12-09 15:14 | disposition home or self-care (01) ==
LOC: NCHCN 15:13
PROVIDERS: PCP Family Medicine; Visit Provider Family Medicine
DX: Z11.51 Encounter for screening for human papillomavirus (HPV) (principal)
CPT/HCPCS: 88142; 87624

== ENCOUNTER 2022-12-10 16:18 | Outpatient (REF) | payer OTHER, SELFPAY | END 2022-12-10 16:19 | disposition home or self-care (01) | LOC: LBN 16:18 | PROVIDERS: PCP Family Medicine; Visit Provider Family Medicine | DX: R30.0 Dysuria (principal); R82.998 Other abnormal findings in urine | CPT/HCPCS: 87077; 87086; 87186 ==

== ENCOUNTER 2023-05-31 11:19 | Emergency (ER) | payer OTHER, SELFPAY ==
[2023-05-31 11:26] VITALS: BP 132/83; PULSE 93; RESP 18; TEMP 36.8; O2SAT 100
--- NOTE | 2023-05-31 12:14 | W.ED.GENAD ---
HPI General Stated Complaint: Orthopedic ABDIAS: 4 Date/Time Provider Initiated Documentation: 05/31/23 12:13. HPI Narrative: MDM This is an overall very well-appearing normothermic and not tachycardic 47-year-old diabetic with atraumatic right foot pain concerning for multiple etiologies. No pain out of proportion to suggest necrotizing soft tissue infection. Patient has no signs of any diabetic foot ulcers. Her foot is warm and well-perfused so I am not concerned for critical limb ischemia so I do not feel that the patient requires an emergent CT angiogram with runoffs. Patient does have a history of diabetes but has no signs of arterial insufficiency. She also has a history of multiple sclerosis which raises possibility of MS exacerbation. Given no focal weakness I do not feel that she requires an emergent MRI. She has no history of gout although this is another concern as she reports that she does eat venison routinely. She is nonalcoholic to suggest increased risk for gout. She has no signs of cellulitis based on no erythema. No fluctuance to suggest abscess. No history of malignancy so in the setting of her reassuring x-ray with no signs of fracture I do not feel that she requires a more sensitive test with CT scan. Her x-ray does show bilateral vascular calcifications which is consistent with her history of diabetes. No lateral foot pain to suggest fifth metatarsal injury. No talar tenderness to suggest talar fracture. No midfoot instability to suggest Lisfranc injury. 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 Patient had a reassuring exam I feel that the risks of immobilization outweigh the benefits so we will defer walking boot at this point time. 1:08 PM I have asked health community service director Esperanza to have the patient seen within a week by her primary care provider. Given her history of MS if her pain worsens or does not improve she may benefit from an MRI but I do not feel that she requires this emergently. 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 Patient works on her feet for her occupation. She has no prior history of similar symptoms. She does have a history of multiple sclerosis which has caused right arm weakness in the past. She feels as if she cannot flex and extend her foot is much as usual. She feels as if she needs to pop her foot. She denies any injuries. She is history of insulin-dependent diabetes. She has no history of gout. She said no fevers nor chills. No numbness or tingling to right foot. No routine tobacco ethanol, nor illicits. Denies any history of falls recently. Exam General: Well-appearing in no acute distress speaking in complete sentences. Head: Normocephalic, atraumatic. Eye: Extraocular eye movements intact. No conjunctival injection. No scleral icterus. Ear, nose, mouth, throat: Grossly normal inspection. Normal voice, handling secretions normally. Neck: Trachea midline. Cardiovascular: Well-perfused distal extremities. Respiratory: Nonlabored respiration. Gastrointestinal: Nondistended abdomen. Musculoskeletal: Right foot warm and well-perfused. No missing toes. 2+ PT and DP pulses. Cap refill less than 2 seconds in the right toes. Patient does have mild tenderness to the medial malleolus and to the medial midfoot. No midfoot instability. No proximal fifth metatarsal tenderness. 5 out of 5 strength in dorsi and plantarflexion right foot. Skin: Normal for age and race, grossly normal temperature and turgor. No acute rash. Neurologic: Alert and appropriate, no apparent acute deficits. Psychiatric: Mood and manner are appropriate. Grooming and personal hygiene are appropriate. Related Data Home Medications Medication Instructions Recorded Confirmed tizanidine 2 mg tablet 2 mg PO HS ##1 02/04/15 05/31/23 fludrocortisone 0.1 mg tablet 0.1 mg PO DAILY #90 tabs 12/08/15 05/31/23 cholecalciferol (vitamin D3) 125 5,000 unit PO DAILY 02/09/16 05/31/23 mcg (5,000 unit) capsule glatiramer 40 mg/mL subcutaneous 40 mg IM/SC . 3 X A WEEK 02/09/16 05/31/23 syringe (Copaxone) gabapentin 100 mg capsule 100 mg PO daily prn #60 caps 04/14/17 05/31/23 glucagon (human recombinant) 1 mg 1 mg IJ PRN PRN ##2 09/18/17 05/31/23 injection kit (Glucagon Emergency Kit (human-recomb)) gabapentin 300 mg capsule 300 - 600 mg (1 - 2 x 300 mg) PO 01/19/18 05/31/23 BID #270 tab-caps baclofen 10 mg tablet 10 mg PO BID PRN muscle spasticity 05/18/18 05/31/23 #60 tabs prochlorperazine maleate 5 mg 5 mg PO BID-TID PRN nausea and 09/13/18 05/31/23 tablet (Compazine) vomiting #30 tabs insulin lispro 100 unit/mL 1 sliding sc subcut USEASDIRECTD 05/27/19 05/31/23 subcutaneous solution (Humalog #30 mL U-100 Insulin) blood sugar diagnostic #900 strips 04/03/20 03/22/23 scopolamine base 1 mg over 3 days 1 patch transdermal ONCE #4 ea 11/16/20 05/31/23 transdermal patch (Transderm-Scop) atorvastatin 10 mg tablet 10 mg PO DAILY 08/17/21 05/31/23 acetaminophen 500 mg tablet 500 mg PO Q6H PRN pain #60 tabs 01/19/22 05/31/23 ibuprofen 600 mg tablet 600 mg PO TID PRN pain #60 tabs 01/19/22 05/31/23 Precision Q-I-D Test (blood sugar #1,000 ea 04/18/22 03/22/23 diagnostic) vitamin B complex (B 1 tab PO DAILY 07/22/22 05/31/23 Complex-Vitamin B12 tablet) Previous Rx's Medication Instructions Recorded gabapentin 100 mg capsule 100 mg PO daily prn #60 caps 04/14/17 gabapentin 300 mg capsule 300 - 600 mg (1 - 2 x 300 mg) PO 01/19/18 BID #270 tab-caps baclofen 10 mg tablet 10 mg PO BID PRN muscle spasticity 05/18/18 #60 tabs prochlorperazine maleate 5 mg 5 mg PO BID-TID PRN nausea and 09/13/18 tablet (Compazine) vomiting #30 tabs insulin lispro 100 unit/mL 1 sliding sc subcut USEASDIRECTD 05/27/19 subcutaneous solution (Humalog #30 mL U-100 Insulin) blood sugar diagnostic #900 strips 04/03/20 scopolamine base 1 mg over 3 days 1 patch transdermal ONCE #4 ea 11/16/20 transdermal patch (Transderm-Scop) acetaminophen 500 mg tablet 500 mg PO Q6H PRN pain #60 tabs 01/19/22 ibuprofen 600 mg tablet 600 mg PO TID PRN pain #60 tabs 01/19/22 Precision Q-I-D Test (blood sugar #1,000 ea 04/18/22 diagnostic) Allergies Allergy/AdvReac Type Severity Reaction Status Date / Time sulfur dioxide Allergy Intermediate Skin Rash Verified 05/31/23 12:40 PFSH All Active Problems (Updated 06/01/23 @ 16:16 by Rob Lara MD) Acute pain of right foot (Acute) Dysplastic nevus of lower extremity (Acute ~01/2023) 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 Nielson at [facility] Essential hypertension (Chronic) Medical History (Updated 06/01/23 @ 16:16 by Rob Lara MD) Metatarsal boss of left foot Osteoarthritis of carpometacarpal (CMC) joint of left thumb Chronic ear pain Arthralgia of left temporomandibular joint Allergic rhinitis Dupuytren's disease of palm of right hand Synovial cyst of popliteal space [Johnson], right knee Vitreous hemorrhage (04/27/02) O.D. Peripheral neuralgia diabetic; onset at age 12 Patellofemoral syndrome, left (07/24/17) ASCUS of cervix with negative high risk HPV (02/22/17) no h/o colposcopy; repeat in 2022 negative Pap and HPV. Surgical History (Updated 12/09/22 @ 14:29 by Anabelle Medina MD) S/P foot surgery, right S/P decompression of ulnar nerve S/P cataract extraction S/P carpal tunnel release S/P trigger finger release History of colonoscopy (~08/2021) History of cataract removal with insertion of prosthetic lens History of vitrectomy S/P laparoscopic appendectomy (~09/14/18) Family History Mother , AGE 49 CMML (chronic myelomonocytic leukemia) Father , 83 Essential hypertension Sister No problems noted. Brother No problems noted. Brother No problems noted. 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 [employer] Pets and animals: Yes Pets and animals: cat(s) Sexually active: Yes Do you think of yourself as: straight/heterosexual Current gender identity: female What is your relationship status?: How often do you talk on the phone with friends or family?: three or more times per week How often do you get together with friends or relatives?: three or more times per week How often do you attend cheondoism or restoration services?: decline to answer Do you belong to any clubs or organized social groups?: yes Panel score (0-1 are the most socially isolated patients): 3 Duration: 30-45 minutes/day Frequency: does not exercise Chioma/Holiness: Sikh Special chioma needs: No Seatbelt use: always Drive intox or ride w/intox solo truck driver: No Do you feel safe at home: Yes Do you feel safe in your relationship?: Yes Female Reproductive History Menstrual control method: permanent sterilization (vasectomy) History History 0 Para 0 Hx # Term Pregnancies Multiple births Hx # Pregnancies Ectopic pregnancies AB induced Hx Number of Living Children AB spontaneous Course Vital Signs Vital signs: Vital Signs Temperature 36.8 C 05/31/23 11:26 Pulse 93 H 05/31/23 11:26 Respiratory Rate 18 05/31/23 11:26 Blood Pressure 132/83 05/31/23 11:26 Pulse Oximetry 100 05/31/23 11:26 Temperature 36.8 C 05/31/23 11:26 Temperature Source Oral 05/31/23 11:26 Pulse 93 H 05/31/23 11:26 Respiratory Rate 18 05/31/23 11:26 Blood Pressure 132/83 05/31/23 11:26 Blood Pressure Position Supine 05/31/23 11:26 Pulse Oximetry 100 05/31/23 11:26 Oxygen Delivery Method Room Air 05/31/23 11:26 Oxygen Flow Rate 0 05/31/23 11:26 Pain Level 6 05/31/23 11:26 Medical Decision Making Quality:SDOH Health Related Social Needs: No Data to Display Discharge Plan Disposition Patient Disposition: Home Discharge Details Clinical Impression: Acute pain of right foot Primary Care Provider: Anabelle Medina ED Provider: Rob Lara Wentworth Meds and New Rx's Prescriptions: Continued vitamin B complex [B Complex-Vitamin B12] Tablet 1 tab PO DAILY baclofen 10 mg tablet 10 mg PO BID PRN (Reason: muscle spasticity) Qty: 60 3RF atorvastatin 10 mg tablet 10 mg PO DAILY tizanidine 2 MG tablet 2 mg PO HS Qty: 1 fludrocortisone 0.1 MG tablet 0.1 mg PO DAILY Qty: 90 gabapentin 100 MG capsule 100 mg PO daily prn Qty: 60 3RF Glucagon Emergency Kit (human) 1 MG kit 1 mg IJ PRN PRNQty: 2 gabapentin 300 MG capsule 300 - 600 mg PO BID Qty: 270 3RF Rx Instructions: one tab a.m., two tabs p.m. prochlorperazine maleate [Compazine] 5 mg tablet 5 mg PO BID-TID PRN (Reason: nausea and vomiting) Qty: 30 0RF insulin lispro [Humalog U-100 Insulin] 100 unit/mL solution 1 sliding sc SC USEASDIRECTD Qty: 30 2RF Patient Comments: pt. has pump in place Rx Instructions: uses diabetic pump (DME) blood sugar diagnostic Strip 1 ea Miscellaneous 10x daily Qty: 900 12RF Rx Instructions: E10.65 on insulin pump scopolamine base [Transderm-Scop] 1 mg over 3 days patch 3 day 1 patch Transdermal ONCE Qty: 4 1RF Rx Instructions: apply 4 hours prior to sailing (DME) Precision Q-I-D Test Strip See Rx Instructions .ROUTE .MEDSUPPLY Qty: 1000 6RF Rx Instructions: Insulin pump. Test 10x daily cholecalciferol (vitamin D3) 5,000 UNIT capsule 5,000 unit PO DAILY glatiramer [Copaxone] 40 MG/ML syringe 40 mg IM/SC . 3 X A WEEK acetaminophen 500 mg tablet 500 mg PO Q6H PRN (Reason: pain) Qty: 60 2RF ibuprofen 600 mg tablet 600 mg PO TID PRN (Reason: pain) Qty: 60 0RF Discharge Instructions Additional Instructions: You are seen in the emergency department for your foot pain. You are x-ray showed no sign of any fractures. Please follow-up with your primary care provider within the next week. Please return to the emergency department, as we discussed, if you develop fevers worsening pain or any swelling of your right foot. You may have a flare of your MS. If your pain does not improve please follow-up with your primary care provider to discuss possibility of MRI. For your pain please take medications as follows: 1. Take acetaminophen (Tylenol), 1,000 mg (two 500 mg tabs) every 6 hours 2. Take ibuprofen (Advil), 400 mg every 6 hours. Discharge Data Discharge Date/Time-TO BE ENTERED AT DEPARTURE: 05/31/23 13:16
--- NOTE | 2023-05-31 12:31 | DI.RAD_ITS ---
Exam(s) XR ANKLE RT COMPLETE XR FOOT RT COMPLETE EXAM: XR ANKLE RT COMPLETE CLINICAL HISTORY: Right ankle pain. TECHNIQUE: 2D digital imaging was performed. Three views the ankle and foot. COMPARISON: CR RIGHT ANKLE COMPLETE from 10/16/2013 CR XR FOOT RT COMPLETE from 05/31/2023 FINDINGS: BONES: No acute fracture is present. No bony destructive lesion is seen. JOINTS: The ankle mortise is normally aligned. SOFT TISSUE: Swelling around malleoli. Vascular calcifications. IMPRESSION: Unremarkable radiographs of the right ankle and foot. DATA REPOSITORY: RADIATION DOSE DELIVERED:
--- NOTE | 2023-05-31 13:19 | NUR.NOTE ---
Referral faxed to Primary Care Physician due to right foot pain, in 1 week.
== END 2023-05-31 13:16 | disposition home or self-care (01) ==
PROVIDERS: Emergency Provider Emergency Medicine; PCP Family Medicine
DX: M25.571 Pain in right ankle and joints of right foot (principal); M79.671 Pain in right foot; I10 Essential (primary) hypertension; G35 Multiple sclerosis; E10.21 Type 1 diabetes mellitus with diabetic nephropathy; E10.43 Type 1 diabetes mellitus with diabetic autonomic (poly)neuropathy; E10.3593 Type 1 diabetes mellitus with proliferative diabetic retinopathy without macular edema, bilateral; Z79.4 Long term (current) use of insulin
CPT/HCPCS: 99283; 73610; 73630

== ENCOUNTER 2023-09-08 01:25 | Outpatient (CLI) | payer OTHER, SELFPAY ==
[2023-09-08 14:28] LABS: ALT 28 U/L (14-59); AST 21 U/L (15-37); Albumin 3.8 g/dL (3.4-5.0); Alkaline Phosphatase 70 U/L (46-116); Anion Gap 9.3 mmol/L (3-11); BUN 21 mg/dL (7-18); Bilirubin, Total 0.6 mg/dL (0.2-1.0); CO2 28.7 mmol/L (21.0-32.0); CREATININE 1.2 mg/dL (0.55-1.02); Calcium 9.5 mg/dL (8.5-10.1); Chloride 103 mmol/L (98-107); Cholesterol 155 mg/dL (<200); Estimated GFR 55.15 (mL/min/1.73m2); Glucose 89 mg/dL (74-106); HDL Cholesterol 101 mg/dL (40-60); Potassium 3.6 mmol/L (3.5-5.1); Sodium 141 mmol/L (136-145); Total Protein 7.1 g/dL (6.4-8.2)
[2023-09-08 14:29] LABS: Triglyceride <25 mg/dL (<150)
[2023-09-08 14:32] LABS: Hemoglobin A1C 5.9 % (<5.7)
[2023-09-08 14:49] LABS: Vitamin D 25 Total 76.4 ng/mL (30-100)
[2023-09-08 15:38] LABS: LDL CHOLESTEROL 49 mg/dL (<100)
== END 2023-09-08 01:26 | disposition home or self-care (01) ==
PROVIDERS: PCP Family Medicine; Visit Provider Family Medicine
DX: E10.21 Type 1 diabetes mellitus with diabetic nephropathy
CPT/HCPCS: 36415; 80053; 80061; 82306; 83721; 83036

== ENCOUNTER → 2023-12-27 01:14 | Outpatient (CLI) | payer OTHER, SELFPAY ==
--- NOTE | 2023-12-27 08:30 | DI.MAMMO_ITS ---
Exam(s) MAMMO SCREENING EXAM: MAMMO SCREENING CLINICAL HISTORY: screening, Z12.39 TECHNIQUE: Mammograms were interpreted according to the usual protocol including computer analysis w [employer] CAD system, tomosynthesis and C-view imaging. COMPARISON: 2013 through 2021 FINDINGS: The breasts are composed of heterogeneously dense fibroglandular densities, Breast Density category C . No suspicious masses or suspicious microcalcifications are seen. No skin thickening or abnormal axillary lymph nodes are seen. There has been no significant change from prior exams. IMPRESSION: BI-RADS Category 1, Negative mammogram. Yearly screening mammography is recommended. Breast Density Category C, heterogeneously Dense. The mammogram demonstrates the patient's breast tissue is dense. Dense breast tissue is very common a nd is not abnormal but dense breast tissue can make it harder to find cancer on a mammogram. Also, de nse breast tissue may increase breast cancer risk. This information about the result of the mammogram report was provided to the patient to raise their awareness. Use this report when you speak with the patient about their risks for breast cancer, which includes their family history. At that time, you may recommend additional screening tests (Ultrasound or MRI) as they might be useful based on their r isk. A negative radiographic report should not delay biopsy if a dominant or clinically suspicious mass is present. Up to ten percent of cancers are not identified on mammography. A negative report may reinforce clinical impression. Adenosis and dense breasts may obscure an underlying neoplasm. False positive reports average 6 to 10%.
== END ==
PROVIDERS: PCP Family Medicine; Visit Provider Family Medicine
DX: Z12.39 Encounter for other screening for malignant neoplasm of breast (principal); Z12.31 Encounter for screening mammogram for malignant neoplasm of breast; R92.333 Mammographic heterogeneous density, bilateral breasts
CPT/HCPCS: 77063; 77067

== ENCOUNTER 2024-01-22 17:57 | Outpatient (REF) | payer OTHER, SELFPAY ==
[2024-01-22 15:00] LABS: Bilirubin Negative (Negative); Blood Trace-lysed (Negative); Clarity Clear (Clear); Glucose Negative (Negative); Ketones Negative (Negative); Leukocyte Esterase Negative (Negative); Nitrite Negative (Negative); Urobilinogen 0.2 mg/dL (Up to 0.2); pH 5.5 (5-8)
[2024-01-22 15:21] LABS: Bacteria Rare HPF (Negative); C & S Indicated? No; Crystals Negative HPF (Negative); Epithelial Cells Rare HPF (Negative); Mucus Negative (Negative); WBC 0-2 HPF (0-5)
== END 2024-01-22 17:58 | disposition home or self-care (01) ==
LOC: LBN 17:57
PROVIDERS: PCP Family Medicine; Visit Provider Family Medicine
DX: R30.0 Dysuria (principal); E87.1 Hypo-osmolality and hyponatremia; E10.22 Type 1 diabetes mellitus with diabetic chronic kidney disease; N18.31 Chronic kidney disease, stage 3a; E27.49 Other adrenocortical insufficiency; E10.9 Type 1 diabetes mellitus without complications
CPT/HCPCS: 81003; 81015

== ENCOUNTER 2024-03-20 03:26 | Outpatient (CLI) | payer OTHER, SELFPAY ==
[2024-03-20 13:31] LABS: Hemoglobin A1C 5.8 % (<5.7)
[2024-03-20 14:06] LABS: Anion Gap 8.6 mmol/L (3-11); BUN 15 mg/dL (7-18); CO2 25.4 mmol/L (21.0-32.0); CREATININE 1.1 mg/dL (0.55-1.02); Calcium 9.3 mg/dL (8.5-10.1); Chloride 106 mmol/L (98-107); Estimated GFR 61.22 (mL/min/1.73m2); Glucose 137 mg/dL (74-106); Potassium 3.8 mmol/L (3.5-5.1); Sodium 140 mmol/L (136-145)
[2024-03-20 14:37] LABS: Vitamin B12 1197 pg/mL (193-986)
[2024-03-22 11:53] LABS: Copper, Serum 99 mcg/dL (77-206)
== END 2024-03-20 03:27 | disposition home or self-care (01) ==
PROVIDERS: Internal Medicine Nephrology; PCP Family Medicine; Visit Provider Family Medicine
DX: R73.01 Impaired fasting glucose (principal); R43.2 Parageusia
CPT/HCPCS: 36415; 80048; 82525; 82607; 83036

== ENCOUNTER 2024-05-27 03:24 | Outpatient (CLI) | payer OTHER, SELFPAY ==
[2024-05-27 15:02] LABS: Abs Immature Grans 0.02 10^3/uL (0.0-0.06); Absolute Basophil Count 0.03 10^3/uL (0.0-0.2); Absolute Eosinophil Count 0.15 10^3/uL (0.0-0.7); Absolute Lymphocyte Count 1.53 10^3/uL (1.2-3.4); Absolute Monocyte Count 0.35 10^3/uL (0.1-0.8); Absolute Neutrophil Count 5.44 10^3/uL (1.2-6.7); Basophils % 0.4 %; HCT 38.8 % (36.0-46.0); Immature Grans % 0.3 %; Lymphocytes % 20.3 %; MCH 32.2 pg (27.0-33.0); MCHC 33.5 % (32.0-36.0); MCV 96 fL (80-95); MPV 11.4 fL (8.0-11.0); Monocytes % 4.7 %; Neutrophils % 72.3 %; Platelet Count 183 10^3/uL (130-400); RBC 4.04 10^6/uL (3.93-5.22); RDW 12.4 % (11.7-14.6); RDW-SD 43.6 fL; WBC 7.52 10^3/uL (4.4-10.8)
[2024-05-27 15:49] LABS: Anion Gap 7.4 mmol/L (3-11); BUN 12 mg/dL (7-18); CO2 28.6 mmol/L (21.0-32.0); CREATININE 1.2 mg/dL (0.55-1.02); Chloride 104 mmol/L (98-107); Estimated GFR 55.15 (mL/min/1.73m2); Glucose 115 mg/dL (74-106); Potassium 3.9 mmol/L (3.5-5.1); Sodium 140 mmol/L (136-145)
== END 2024-05-27 03:25 | disposition home or self-care (01) ==
PROVIDERS: PCP Family Medicine; Visit Provider Internal Medicine Nephrology
DX: I10 Essential (primary) hypertension (principal); E10.21 Type 1 diabetes mellitus with diabetic nephropathy; E87.1 Hypo-osmolality and hyponatremia; E10.22 Type 1 diabetes mellitus with diabetic chronic kidney disease; N18.31 Chronic kidney disease, stage 3a
CPT/HCPCS: 36415; 80048; 85025

== ENCOUNTER 2024-08-21 02:19 | Outpatient (CLI) | payer OTHER, SELFPAY ==
[2024-08-21 11:04] LABS: Anion Gap 6.9 mmol/L (3-11); BUN 11 mg/dL (7-18); CO2 29.1 mmol/L (21.0-32.0); Calcium 8.8 mg/dL (8.5-10.1); Chloride 105 mmol/L (98-107); Estimated GFR 68.21 (mL/min/1.73m2); Glucose 68 mg/dL (74-106); Potassium 3.9 mmol/L (3.5-5.1); Sodium 141 mmol/L (136-145)
== END 2024-08-21 02:20 | disposition home or self-care (01) ==
LOC: LBO 02:19
PROVIDERS: PCP Family Medicine; Visit Provider Internal Medicine Nephrology
DX: E10.69 Type 1 diabetes mellitus with other specified complication (principal); E87.1 Hypo-osmolality and hyponatremia; E10.22 Type 1 diabetes mellitus with diabetic chronic kidney disease; N18.31 Chronic kidney disease, stage 3a
CPT/HCPCS: 36415; 80048

== ENCOUNTER 2024-08-30 11:06 | Outpatient (CLI) | payer OTHER, SELFPAY ==
--- NOTE | 2024-08-30 10:45 | DI.RAD_ITS ---
Exam(s) XR SHOULDER LT COMPLETE 2+V EXAM: XR SHOULDER LT COMPLETE 2+V CLINICAL HISTORY: LEFT SHOULDER PAIN. TECHNIQUE: 2D digital imaging was performed of the left shoulder. Three images were obtained. AP, Grashey and axillary views were obtained. COMPARISON: No exams were available for comparison FINDINGS: BONES: No acute fracture is present. No bony destructive lesion is seen. JOINTS: No dislocation present. The glenohumeral joint is well maintained. There are mild degenerati ve changes of the acromioclavicular joint. SOFT TISSUE: Normal. IMPRESSION: Minimal degenerative changes seen at the AC joint. DATA REPOSITORY: RADIATION DOSE DELIVERED:
== END 2024-08-30 11:07 | disposition home or self-care (01) ==
LOC: DIORS 11:07
PROVIDERS: PCP Family Medicine; Visit Provider Physician Assistant
DX: M25.512 Pain in left shoulder (principal)
CPT/HCPCS: 73030

== ENCOUNTER 2024-10-07 19:06 | Outpatient (REF) | payer OTHER, SELFPAY ==
[2024-10-07 18:32] LABS: Bilirubin Negative (Negative); Blood Negative (Negative); Clarity Clear (Clear); Glucose Negative (Negative); Ketones Negative (Negative); Leukocyte Esterase Negative (Negative); Nitrite Negative (Negative); Specific Gravity 1.015 (1.005-1.025); Urobilinogen 0.2 mg/dL (Up to 0.2); pH 5.5 (5-8)
== END 2024-10-07 19:07 | disposition home or self-care (01) ==
LOC: LBN 19:06
PROVIDERS: PCP Family Medicine; Visit Provider Family Medicine
DX: R30.0 Dysuria (principal)
CPT/HCPCS: 81003

== ENCOUNTER 2024-12-10 03:49 | Outpatient (CLI) | payer OTHER, SELFPAY ==
[2024-12-10 09:24] LABS: Abs Immature Grans 0.01 10^3/uL (0.0-0.06); HCT 38.0 % (36.0-46.0); HGB 12.9 g/dL (11.2-15.7); Immature Grans % 0.2 %; MCH 31.6 pg (27.0-33.0); MCHC 33.9 % (32.0-36.0); MCV 93 fL (80-95); MPV 11.2 fL (8.0-11.0); Platelet Count 167 10^3/uL (130-400); RBC 4.08 10^6/uL (3.93-5.22); RDW 12.2 % (11.7-14.6); RDW-SD 42.1 fL; WBC 5.60 10^3/uL (4.4-10.8)
[2024-12-10 09:47] LABS: Hemoglobin A1C 6.0 % (<5.7)
[2024-12-10 10:03] LABS: Anion Gap 9.6 mmol/L (3-11); BUN 13 mg/dL (7-18); CO2 28.4 mmol/L (21.0-32.0); Calcium 9.5 mg/dL (8.5-10.1); Chloride 100 mmol/L (98-107); Estimated GFR 68.21 (mL/min/1.73m2); Glucose 122 mg/dL (74-106); Potassium 3.8 mmol/L (3.5-5.1); Sodium 138 mmol/L (136-145); TSH (W/Ref FT4) 2.35 uIU/mL (0.36-3.74)
[2024-12-11 10:42] LABS: Lyme Ab w Rflx to Lyme Confirm Negative (Negative)
[2024-12-13 16:56] LABS: B. miyamotoi PCR Negative (Negative); Babesia divergens/MO-1 Negative (Negative); Ehrlichia muris eauclairensis Negative (Negative)
== END 2024-12-10 03:50 | disposition home or self-care (01) ==
PROVIDERS: PCP Family Medicine; Visit Provider Family Medicine
DX: E11.9 Type 2 diabetes mellitus without complications (principal); E10.21 Type 1 diabetes mellitus with diabetic nephropathy; W57.XXXA Bitten or stung by nonvenomous insect and other nonvenomous arthropods, initial encounter; R53.83 Other fatigue; E03.9 Hypothyroidism, unspecified
CPT/HCPCS: 36415; 80048; 87798; 83036; 84443; 85025; 86618

== ENCOUNTER 2025-01-01 01:49 | Outpatient (CLI) | payer OTHER, SELFPAY ==
--- NOTE | 2025-01-01 10:44 | DI.RAD_ITS ---
Exam(s) XR SACRUM EXAM: XR SACRUM CLINICAL HISTORY: sacral back pain x 2 mos,m53.3. TECHNIQUE: 2D digital imaging was performed. Three images were obtained. COMPARISON: CT CT ABDOMEN PELVIS W from 08/09/2021 FINDINGS: BONES: No acute fracture is present. No bony destructive lesion is seen. JOINTS: No dislocation present. The sacroiliac joints are well maintained. There is no evidence of ankylosis or erosion. There are degenerative changes seen at the L5-S1 facet joints. There is also disc space narrowing at L5-S1 and endplate sclerosis. SOFT TISSUE: Normal. IMPRESSION: 1. No acute abnormality seen at the sacrum. 2. Degenerative changes seen at L5-S1. DATA REPOSITORY: RADIATION DOSE DELIVERED:
== END 2025-01-01 02:09 ==
LOC: DI 01:49
PROVIDERS: PCP Family Medicine; Visit Provider Family Medicine
DX: M53.3 Sacrococcygeal disorders, not elsewhere classified (principal)
CPT/HCPCS: 72220

== ENCOUNTER 2025-04-04 11:35 | Outpatient (CLI) | payer OTHER, SELFPAY ==
[2025-04-04 22:33] LABS: FSH 11.1 mIU/mL (See Note)
== END 2025-04-04 11:36 | disposition home or self-care (01) ==
LOC: LOS 11:37
PROVIDERS: PCP Family Medicine; Visit Provider Family Medicine
DX: N95.1 Menopausal and female climacteric states (principal)
CPT/HCPCS: 36415; 83001

== ENCOUNTER 2025-05-16 00:49 | Outpatient (CLI) | payer OTHER, SELFPAY ==
[2025-05-16 15:29] LABS: Anion Gap 9.3 mmol/L (3-11); BUN 17 mg/dL (9-23); CO2 26.7 mmol/L (20.0-31.0); Calcium 9.0 mg/dL (8.3-10.6); Chloride 104 mmol/L (98-107); Glucose 83 mg/dL (74-106); Potassium 3.5 mmol/L (3.5-5.1); Sodium 140 mmol/L (136-145)
[2025-05-16 15:57] LABS: Lab Add On Test DONE
[2025-05-16 16:14] LABS: Hemoglobin A1C 5.6 % (<5.7)
== END 2025-05-16 00:50 | disposition home or self-care (01) ==
LOC: LBO 00:50
PROVIDERS: Registered Nurse; PCP Family Medicine; Visit Provider Internal Medicine Nephrology
DX: E10.21 Type 1 diabetes mellitus with diabetic nephropathy (principal); E10.69 Type 1 diabetes mellitus with other specified complication; E27.49 Other adrenocortical insufficiency; E87.1 Hypo-osmolality and hyponatremia; R53.83 Other fatigue
CPT/HCPCS: 36415; 80048; 83036